=== PATIENT | female | born 1980 | race Caucasian/White ===

== ENCOUNTER → 2017-08-21 | Outpatient (CLI) | payer OTHER ==
[~2017-08-21] MED LIST: ASPI81TA28 PO; ATEN-173 PO; METH10TA4 PO; SULF1TAB92 PO; TACR1CAP7 PO
[2017-08-21 12:32] LABS: HEMATOCRIT 41.2 % (37-47); MEAN CELL VOLUME 89.6 fL (80-100); MEAN CORPUSCULAR HEMOGLOBIN 31.7 pg (25-34); MEAN CORPUSCULAR HGB CONC 35.4 g/dl (32-36); MEAN PLATELET VOLUME 11.5 fL (7.4-10.4); PLATELET COUNT 132 K/uL (130-400); WHITE BLOOD COUNT 6.29 K/uL (4.8-10.8)
[2017-08-21 17:00] LABS: ALKALINE PHOSPHATASE 61 U/L (45-117); ALT/SGPT 22 U/L (12-78); AST/SGOT 15 U/L (15-37); BLOOD UREA NITROGEN 13 mg/dl (7-18); BUN/CREATININE RATIO 9.3 (10-20); CALCIUM 9.2 mg/dl (8.5-10.1); CARBON DIOXIDE 24 mmol/L (21-32); CHLORIDE 107 mmol/L (98-107); GLUCOSE 84 mg/dl (70-99); SODIUM 138 mmol/L (136-145)
[2017-08-21 17:07] LABS: ALB/GLOB RATIO 1.1 (0.9-2); FERRITIN 47.6 ng/ml (8.0-388.0); TOTAL IRON BINDING CAPACITY 280 mcg/dl (250-450)
[2017-08-21 17:30] LABS: LYME DISEASE AB IGM NEG (NEG)
[2017-08-21 17:31] LABS: LYME DISEASE AB IGG NEG (NEG)
== END | disposition home or self-care (01) ==
LOC: C.LABBFT 11:01
PROVIDERS: ATTEND Physician Assistant Medical
DX: R53.83 Other fatigue (principal)

== ENCOUNTER 2017-09-27 00:21 | Emergency (ER) | payer OTHER ==
[~2017-09-27] VITALS: Ht 167.6 cm; Wt 66.9 kg
[2017-09-27 00:27] VITALS: TEMP 37; Ht 167.6 cm; Wt 66.9 kg
[2017-09-27] MEDS ORDERED: OPTIRAY 320 IV PRN (01:15)
[2017-09-27] MEDS ORDERED: LORAZEPAM 2 MG/ML 1 ML VIAL IV STA (01:21)
[2017-09-27 01:38] LABS: BUN/CREATININE RATIO 15.1 (10-20); CALCIUM 9.7 mg/dl (8.5-10.1); CREATININE 1.38 mg/dl (0.60-1.20); POTASSIUM 4.4 mmol/L (3.5-5.1)
[2017-09-27] MEDS ORDERED: ASPI325T45 PO (01:40)
[2017-09-27] MEDS ORDERED: TACR1CAP14 PO (01:42)
[2017-09-27] MEDS ORDERED: LEVO25TA5 PO (01:42)
[2017-09-27] MEDS ORDERED: ATEN50TA8 PO (01:46)
[2017-09-27] MEDS ORDERED: ACETAMINOPHEN 500 MG TAB PO STA (01:52)
[2017-09-27 02:57] LABS: BASO % 0.2 %; BASO ABS # 0.03 K/uL (0-0.2); COMPLETE YES; EOS % 3.9 %; HEMATOCRIT 42.6 % (37-47); IG% 0.4 %; LYMPH % 10.9 %; LYMPH ABS # 1.39 K/uL (1.2-3.4); MEAN CELL VOLUME 90.4 fL (80-100); MEAN CORPUSCULAR HEMOGLOBIN 32.5 pg (25-34); MEAN CORPUSCULAR HGB CONC 35.9 g/dl (32-36); MEAN PLATELET VOLUME 10.9 fL (7.4-10.4); MONO % 5.9 %; NEUT % 78.7 %; PLATELET COUNT 210 K/uL (130-400); RED BLOOD COUNT 4.71 M/uL (4.2-5.4)
[2017-09-27] MEDS ORDERED: TROLAMINE SALICYLATE 10% CRM 255 APPLN/85 GM TUBE EXT STA (03:24)
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
[2017-09-27 03:59] VITALS: BP 144/101; PULSE 75; O2SAT 96
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
== END 2017-09-27 03:58 | disposition home or self-care (01) ==
LOC: C.EDB 00:23
DX: S09.90XA Unspecified injury of head, initial encounter (principal); S19.9XXA Unspecified injury of neck, initial encounter; S59.901A Unspecified injury of right elbow, initial encounter; S90.512A Abrasion, left ankle, initial encounter; T76.11XA Adult physical abuse, suspected, initial encounter; R40.2412 Glasgow coma scale score 13-15, at arrival to emergency department; I12.9 Hypertensive chronic kidney disease with stage 1 through stage 4 chronic kidney disease, or unspecified chronic kidney disease; N18.9 Chronic kidney disease, unspecified; F17.200 Nicotine dependence, unspecified, uncomplicated; E04.1 Nontoxic single thyroid nodule; Z94.0 Kidney transplant status; Z79.82 Long term (current) use of aspirin

== ENCOUNTER → 2017-11-04 | Outpatient (CLI) | payer OTHER ==
[~2017-11-04] MED LIST changes: +ASPECOTC PO; -ASPI81TA28 PO; -ATEN-173 PO; +ATEN50TA8 PO; +LEVO25TA5 PO; -METH10TA4 PO; -SULF1TAB92 PO; +TACR1CAP3 PO; -TACR1CAP7 PO
== END | disposition home or self-care (01) ==
LOC: C.LABSPEC 17:25
PROVIDERS: ATTEND Physician Assistant
DX: N89.8 Other specified noninflammatory disorders of vagina (principal); R30.0 Dysuria

== ENCOUNTER → 2017-11-27 | Outpatient (CLI) | payer OTHER ==
[~2017-11-27] MED LIST changes: -ASPECOTC PO; +ASPI325T45 PO; +TACR1CAP14 PO; -TACR1CAP3 PO
== END | disposition home or self-care (01) ==
LOC: C.LABSPEC 17:34
PROVIDERS: ATTEND Physician Assistant
DX: N89.8 Other specified noninflammatory disorders of vagina (principal)

== ENCOUNTER → 2017-12-22 | Outpatient (CLI) | payer OTHER | END | disposition home or self-care (01) | LOC: C.LABSPEC 13:46 | PROVIDERS: ATTEND Physician Assistant | DX: N89.8 Other specified noninflammatory disorders of vagina (principal) ==

== ENCOUNTER 2022-04-06 19:45 | Inpatient (IN) ==
[2022-04-06] MEDS ORDERED: ACETAMINOPHEN 1000 MG/100 ML IV IV STA (20:55)
[2022-04-06] MEDS ORDERED: ONDANSETRON INJ 2 MG/ML 2 ML VIAL IV STA (20:55)
[2022-04-06] MEDS ORDERED: LORazepam 2 MG/1 ML VIAL IV STA (20:55)
[2022-04-06] MEDS ORDERED: SODIUM CHLORIDE 0.9% 500 ML IV SCH (21:00)
--- NOTE | 2022-04-06 21:00 | Emergency Department Note ---
Impression & Plan SOB (shortness of breath), Rigors, Immunocompromised, Acute hyponatremia, Hypomagnesemia ED Provider Note NAME: JONAS YOUNG AGE: 41 SEX: F : 1980 ARRIVES VIA: Walk-In INFORMANT: [Patient] ED PROVIDER(S): [Pranav Gupta MD] CHIEF COMPLAINT: Shortness of breath, chills HISTORY OF PRESENT ILLNESS: The patient is a 41-year-old female with a history of renal transplant. She presents with complaints of 2 hours of shortness of breath, dizziness, feeling faint, body weakness and shaking. She feels cold. This came on all of a sudden. She had no vomiting, no diarrhea, no urinary complaints. No cough, sore throat or stuffy nose. The patient does feel somewhat anxious. She felt fine earlier in the day. Of note, the patient was recently treated for bronchitis. She was on steroids and seemed to improve. REVIEW OF SYSTEMS: See HPI for pertinent positives and negatives. A total of ten systems were reviewed and were otherwise negative. PMHx/PSHx: See Below SOCIAL HISTORY: See Below. PHYSICAL EXAM: GENERAL: Patient is in no acute distress. Shivering. HEENT: No acute trauma, normocephalic atraumatic, mucous membranes moist, no nasal congestion, no scleral icterus. NECK: No stridor, no adenopathy, no meningismus, trachea is midline. LUNGS: Clear to auscultation bilaterally, no wheeze, no rhonchi, breath sounds equal. HEART: Without murmurs gallops or rubs, regular rate and rhythm. ABDOMEN: Soft, nontender, bowel sounds positive, no peritonitis. EXTREMITIES: No cyanosis or edema, full range of motion of all the joints wit hout pain or difficulty, no signs for acute trauma. NEUROLOGIC: Oriented x 3, no acute motor or sensory deficits, no focal weakness. SKIN: No rash, no jaundice, no diaphoresis. DIFFERENTIAL DIAGNOSIS: Sepsis, UTI, COVID-19, influenza, pneumonia, metabolic abnormality, electrolyte abnormalities, cardiac sources, cellulitis, bacteremia, intracerebral event, toxicologic etiology, neurologic event, anxiety, as well as other pathologies. EMERGENCY DEPARTMENT COURSE/PROCEDURES: ECG: Indication was weakness and shortness of breath. The ECG shows a normal sinus rhythm with a rate of 85. There is a potential old inferior infarct. There is no ST elevation, no PVCs. QTC is 480. Continuous Cardiac Monitoring: An order was placed for continuous cardiac monitoring. The monitor shows a rate of 87 with normal sinus rhythm. Critical Care Note: I have personally spent 49 minutes of critical care time in the direct management of this patient. This includes bedside care, interpretation of diagnostic studies, and testing, discussion with consultants, patient, and family members, and other required patient management activities. This 49 minutes is in excess of all separately billable procedures. MEDICAL DECISION MAKING: There is no leukocytosis or concerning anemia. There is a normal platelet count. Sodium was low at 128, potassium is low at 3.1. There was an anion gap of 17. Creatinine was elevated at 1.84--the creatinine elevation is baseline for the patient. Her magnesium was low at 2.9. Lactic acid level was slightly elevated, possibly consistent with infection or dehydration. No worrisome liver enzyme elevation. The patient was in a euthyroid state. testing was negative. Urinalysis did not show infection. COVID, influenza and RSV test were negative. Chest film was clear, no pneumonia. On exam, the patient was initially hypertensive, anxious and appeared to be having rigors. The patient was aggressively managed. She was immunocompromised with a history of renal transplant. The patient received IV saline, 1 L. She was given IV Zofran, IV magnesium, IV Ativan, IV Tylenol. She received IV cefepime and IV Zyvox. The patient does appear improved. She does seem more comfortable. She is in need of a hospital stay for further work-up and IV antibiotics. She requires electrolyte replacement. I spoke with the patient and case management director. The on-call hospitalist was consulted. Past Med/Surg History Medical History AVF (arteriovenous fistula) (~11/2004) Ligated 04/14 Concussion alcohol syndrome FHx unknown. Adopted. Possible alcohol syndrome Hypothyroidism Surgical History H/O inguinal hernia repair History of kidney transplant History of tonsillectomy and adenoidectomy Family History Other Adopted Family history unknown Social History Smoking Status: Current every day smoker Second Hand Exposure: No; Hx Alcohol Use: No Hx Substance Use: No Preferred Language: Frisian marital status: Single current occupational status: employed current occupation: [employer] Feels Safe at Home: Yes Allergies Allergies Allergy/AdvReac Type Severity Reaction Status Date / Time tramadol Allergy Intermediate ITCHING Verified 04/06/22 21:17 Home Meds Home Medications Medication Instructions Recorded Confirmed atenolol 50 mg tablet 50 mg PO BID 09/10/18 04/06/22 sulfamethoxazole 400 1 tab PO 3XWK 09/10/18 04/06/22 mg-trimethoprim 80 mg tablet albuterol sulfate 90 mcg/actuation 1 inh INHALATION DAILY 04/06/22 04/06/22 aerosol inhaler Previous Rx's Medication Instructions Recorded triamcinolone acetonide 0.025 % 1 applic TOPICAL BID PRN #80 g 12/11/20 topical cream escitalopram oxalate 10 mg tablet 10 mg PO DAILY #30 tab 03/04/22 tacrolimus 1 mg capsule, See Rx Instructions PO .COMPLEX #1 03/04/22 immediate-release cap hydrochlorothiazide 12.5 mg tablet 12.5 mg PO BID #60 tab 04/02/22 Results & Data (ED) Vital Signs Vital Signs - 24 hr 04/06/22 19:49 04/06/22 20:14 04/06/22 20:15 Temperature 36.7 C Temperature Source Temporal Artery Scan Pulse Rate 95 H Pulse Rate [Finger] 87 Pulse Rate from SpO2 Sensor Respiratory Rate 18 20 Respiratory Effort / Characteristics Non-Labored Spontaneous Non-Labored Spontaneous Respiratory Depth Normal Normal Respiratory Pattern Regular Blood Pressure 167/123 H Blood Pressure [Right Arm] 175/129 H Blood Pressure Mean 137 Blood Pressure Mean [Right Arm] 144 Blood Pressure Position [Right Arm] Semi-fowlers Pulse Oximetry 100 100 100 Oxygen Delivery Method Room Air Room Air Room Air Sepsis Recent Fever Within 48 Hours No Sepsis New/Unexplained Change in Mental Status No Sepsis Action Taken by Nursing No Action Required 04/06/22 20:55 04/06/22 21:00 04/06/22 21:30 Temperature Temperature Source Pulse Rate 84 93 H Pulse Rate [Finger] Pulse Rate from SpO2 Sensor 85 86 Respiratory Rate 16 20 Respiratory Effort / Characteristics Respiratory Depth Respiratory Pattern Blood Pressure Blood Pressure [Right Arm] Blood Pressure Mean Blood Pressure Mean [Right Arm] Blood Pressure Position [Right Arm] Pulse Oximetry 100 100 99 Oxygen Delivery Method Room Air Sepsis Recent Fever Within 48 Hours Sepsis New/Unexplained Change in Mental Status Sepsis Action Taken by Nursing 04/06/22 21:49 04/06/22 22:00 Temperature Temperature Source Pulse Rate 84 86 Pulse Rate [Finger] Pulse Rate from SpO2 Sensor 84 87 Respiratory Rate 13 16 Respiratory Effort / Characteristics Respiratory Depth Respiratory Pattern Blood Pressure 161/110 H 146/99 H Blood Pressure [Right Arm] Blood Pressure Mean 127 114 Blood Pressure Mean [Right Arm] Blood Pressure Position [Right Arm] Pulse Oximetry 98 95 Oxygen Delivery Method Sepsis Recent Fever Within 48 Hours Sepsis New/Unexplained Change in Mental Status Sepsis Action Taken by Correction Medications Current Medication List: was personally reviewed by me Laboratory Data Attestation: I reviewed the patient's lab results. Result diagrams: 04/06/22 20:28 04/06/22 20:28 Lab Results 04/06/22 04/06/22 04/06/22 Range/Units 20:28 20:28 20:28 WBC 8.87 (4.8-10.8) K/uL RBC 4.78 (4.2-5.4) M/uL Hgb 12.0 (12.0-16.0) g/dL Hct 35.8 L (37-47) % MCV 74.9 L (80-100) fL MCH 25.1 (25-34) pg MCHC 33.5 (32-36) g/dL RDW Std Deviation 41.5 (36.4-46.3) fL RDW Coeff of Shukri 15.2 H (11.5-14.5) % Plt Count 287 (130-400) K/uL MPV 10.5 H (7.4-10.4) fL Immature Gran % (Auto) 0.7 % Neut % (Auto) 66.3 % Lymph % (Auto) 24.1 % [place] % (Auto) 7.4 % Eos % (Auto) 1.5 % Baso % (Auto) 0.0 % Neut # (Auto) 5.88 (1.4-6.5) K/uL Lymph # (Auto) 2.14 (1.2-3.4) K/uL [place] # (Auto) 0.66 H (0.11-0.59) K/uL Eos # (Auto) 0.13 (0-0.5) K/uL Baso # (Auto) 0.00 (0-0.2) K/uL Immature Gran # (Auto) 0.06 H (0.00-0.02) K/uL Sodium 128 L (136-145) mmol/L Potassium 3.1 L (3.5-5.1) mmol/L Chloride 91 L (98-107) mmol/L Carbon Dioxide 20 L (21-32) mmol/L Anion Gap 17 H (3-11) BUN 31 H (6-23) mg/dl Creatinine 1.84 H (0.6-1.2) mg/dl Est Cr Clr Drug Dosing 37.7 ml/min Est GFR ( Amer) 38.8 ml/min Est GFR (Non-Af Amer) 33.5 ml/min BUN/Creatinine Ratio 16.8 (10-20) Glucose 102 H (70-99(Fasting)) mg/dl Lactate (0.4-2.0) mmol/L Calcium 11.0 H (8.5-10.1) mg/dl Magnesium 0.9 L* (1.7-2.4) mg/dl Total Bilirubin 1.3 H (0.2-1.0) mg/dl AST 14 (13-39) U/L ALT 14 (7-52) U/L Alkaline Phosphatase 50 (34-104) U/L Total Protein 7.7 (6.0-8.3) gm/dl Albumin 4.6 (3.4-5.0) gm/dl Globulin 3.1 (2.5-4.0) gm/dl Albumin/Globulin Ratio 1.5 (0.9-2) TSH 4.274 (0.300-4.500) uIu/ml HCG, Qual (Negative) Urine Color Urine Appearance (Clear) Urine pH (4.5-7.5) Ur Specific [place] (1.000-1.030) Urine Protein (Negative) Urine Glucose (UA) (Negative) Urine Ketones (Negative) Urine Blood (Negative) Urine Nitrite (Negative) Urine Bilirubin (Negative) Urine Urobilinogen (Negative) Ur Leukocyte Esterase (Negative) Urine WBC (Auto) (0-5) /hpf Urine RBC (Auto) (0-4) /hpf U Hyaline Cast (Auto) (0-5) /lpf U Epithel Cells (Auto) (0-5) /lpf Urine Bacteria (Auto) (Negative) SARS-CoV-2 (PCR) (Negative) Influenza Type A (PCR) (Neg) Influenza Type B (PCR) (Neg) RSV (RT-PCR) (Neg) 04/06/22 04/06/22 04/06/22 Range/Units 20:28 21:15 21:25 WBC (4.8-10.8) K/uL RBC (4.2-5.4) M/uL Hgb (12.0-16.0) g/dL Hct (37-47) % MCV (80-100) fL MCH (25-34) pg MCHC (32-36) g/dL RDW Std Deviation (36.4-46.3) fL RDW Coeff of Shukri (11.5-14.5) % Plt Count (130-400) K/uL MPV (7.4-10.4) fL Immature Gran % (Auto) % Neut % (Auto) % Lymph % (Auto) % [place] % (Auto) % Eos % (Auto) % Baso % (Auto) % Neut # (Auto) (1.4-6.5) K/uL Lymph # (Auto) (1.2-3.4) K/uL [place] # (Auto) (0.11-0.59) K/uL Eos # (Auto) (0-0.5) K/uL Baso # (Auto) (0-0.2) K/uL Immature Gran # (Auto) (0.00-0.02) K/uL Sodium (136-145) mmol/L Potassium (3.5-5.1) mmol/L Chloride (98-107) mmol/L Carbon Dioxide (21-32) mmol/L Anion Gap (3-11) BUN (6-23) mg/dl Creatinine (0.6-1.2) mg/dl Est Cr Clr Drug Dosing ml/min Est GFR ( Amer) ml/min Est GFR (Non-Af Amer) ml/min BUN/Creatinine Ratio (10-20) Glucose (70-99(Fasting)) mg/dl Lactate 2.1 H* (0.4-2.0) mmol/L Calcium (8.5-10.1) mg/dl Magnesium (1.7-2.4) mg/dl Total Bilirubin (0.2-1.0) mg/dl AST (13-39) U/L ALT (7-52) U/L Alkaline Phosphatase (34-104) U/L Total Protein (6.0-8.3) gm/dl Albumin (3.4-5.0) gm/dl Globulin (2.5-4.0) gm/dl Albumin/Globulin Ratio (0.9-2) TSH (0.300-4.500) uIu/ml HCG, Qual Negative (Negative) Urine Color Urine Appearance (Clear) Urine pH (4.5-7.5) Ur Specific [place] (1.000-1.030) Urine Protein (Negative) Urine Glucose (UA) (Negative) Urine Ketones (Negative) Urine Blood (Negative) Urine Nitrite (Negative) Urine Bilirubin (Negative) Urine Urobilinogen (Negative) Ur Leukocyte Esterase (Negative) Urine WBC (Auto) (0-5) /hpf Urine RBC (Auto) (0-4) /hpf U Hyaline Cast (Auto) (0-5) /lpf U Epithel Cells (Auto) (0-5) /lpf Urine Bacteria (Auto) (Negative) SARS-CoV-2 (PCR) NEGATIVE (Negative) Influenza Type A (PCR) Negative (Neg) Influenza Type B (PCR) Negative (Neg) RSV (RT-PCR) Negative (Neg) 04/06/22 04/06/22 Range/Units 22:48 23:13 WBC (4.8-10.8) K/uL RBC (4.2-5.4) M/uL Hgb (12.0-16.0) g/dL Hct (37-47) % MCV (80-100) fL MCH (25-34) pg MCHC (32-36) g/dL RDW Std Deviation (36.4-46.3) fL RDW Coeff of Shukri (11.5-14.5) % Plt Count (130-400) K/uL MPV (7.4-10.4) fL Immature Gran % (Auto) % Neut % (Auto) % Lymph % (Auto) % [place] % (Auto) % Eos % (Auto) % Baso % (Auto) % Neut # (Auto) (1.4-6.5) K/uL Lymph # (Auto) (1.2-3.4) K/uL [place] # (Auto) (0.11-0.59) K/uL Eos # (Auto) (0-0.5) K/uL Baso # (Auto) (0-0.2) K/uL Immature Gran # (Auto) (0.00-0.02) K/uL Sodium (136-145) mmol/L Potassium (3.5-5.1) mmol/L Chloride (98-107) mmol/L Carbon Dioxide (21-32) mmol/L Anion Gap (3-11) BUN (6-23) mg/dl Creatinine (0.6-1.2) mg/dl Est Cr Clr Drug Dosing ml/min Est GFR ( Amer) ml/min Est GFR (Non-Af Amer) ml/min BUN/Creatinine Ratio (10-20) Glucose (70-99(Fasting)) mg/dl Lactate 1.3 (0.4-2.0) mmol/L Calcium (8.5-10.1) mg/dl Magnesium (1.7-2.4) mg/dl Total Bilirubin (0.2-1.0) mg/dl AST (13-39) U/L ALT (7-52) U/L Alkaline Phosphatase (34-104) U/L Total Protein (6.0-8.3) gm/dl Albumin (3.4-5.0) gm/dl Globulin (2.5-4.0) gm/dl Albumin/Globulin Ratio (0.9-2) TSH (0.300-4.500) uIu/ml HCG, Qual (Negative) Urine Color Yellow Urine Appearance Clear (Clear) Urine pH 7.0 (4.5-7.5) Ur Specific [place] 1.005 (1.000-1.030) Urine Protein 1+ H (Negative) Urine Glucose (UA) Negative (Negative) Urine Ketones Negative (Negative) Urine Blood Negative (Negative) Urine Nitrite Negative (Negative) Urine Bilirubin Negative (Negative) Urine Urobilinogen Negative (Negative) Ur Leukocyte Esterase Negative (Negative) Urine WBC (Auto) 1-5 (0-5) /hpf Urine RBC (Auto) 0-4 (0-4) /hpf U Hyaline Cast (Auto) 1-5 (0-5) /lpf U Epithel Cells (Auto) 20-30 H (0-5) /lpf Urine Bacteria (Auto) Negative (Negative) SARS-CoV-2 (PCR) (Negative) Influenza Type A (PCR) (Neg) Influenza Type B (PCR) (Neg) RSV (RT-PCR) (Neg) Administered Medications Discontinued Medications Acetaminophen (Acetaminophen 1000 Mg/100 Ml Iv) 1,000 mg IV NOW STA Stop: 04/06/22 20:56 Last Admin: 04/06/22 21:12 Dose: 1,000 mg Documented by: [id number] Sodium Chloride (Nss) 500 mls @ 999 mls/hr IV .Q31M FLOR Stop: 04/06/22 21:30 Last Infusion: 04/06/22 22:02 Dose: 0 mls/hr Documented by: [id number] Admin: 04/06/22 21:23 Dose: 999 mls/hr Documented by: [id number] Magnesium Sulfate/Dextrose (Magnesium Sulfate / D5w) 1 gm in 100 mls @ 100 mls/hr IV Q1H FLOR Stop: 04/06/22 23:27 Last Admin: 04/06/22 23:03 Dose: 100 mls/hr Documented by: [id number] Infusion: 04/06/22 23:03 Dose: 0 mls/hr Documented by: [id number] Admin: 04/06/22 21:49 Dose: 100 mls/hr Documented by: [id number] Sodium Chloride (Nss 1000ml) 500 mls @ 999 mls/hr IV .Q31M ONE Stop: 04/06/22 22:30 Last Infusion: 04/06/22 22:37 Dose: 0 mls/hr Documented by: [id number] Admin: 04/06/22 22:03 Dose: 999 mls/hr Documented by: [id number] Cefepime HCl (Maxipime) 2,000 mg in 20 mls @ 5 mls/min IV NOW STA; Protocol Stop: 04/06/22 22:24 Last Admin: 04/06/22 22:40 Dose: 5 mls/min Documented by: [id number] Lorazepam (Lorazepam 2 Mg/1 Ml Vial) 1 mg IV NOW STA; Protocol Stop: 04/06/22 20:56 Last Admin: 04/06/22 21:12 Dose: 1 mg Documented by: [id number] Ondansetron HCl (Ondansetron Inj 2 Mg/Ml 2 Ml Vial) 4 mg IV NOW STA Stop: 04/06/22 20:56 Last Admin: 04/06/22 21:12 Dose: 4 mg Documented by: [id number] Imaging Data Radiologist's Impression: Chest X-Ray 04/06/22 20:55 SINGLE VIEW CHEST CLINICAL HISTORY: Generalized weakness. FINDINGS: An AP, portable, upright chest radiograph is compared to study dated 03/31/2022 and correlated with chest CT dated 07/20/2019. The cardiomediastinal silhouette is unremarkable. The lungs and pleural spaces are clear. No pneumothorax is seen. The bony thorax is grossly intact. IMPRESSION: No active disease in the chest. ACT 112: Negative or not required by law. Electronically signed by: Pranav Bey M.D. 04/06/2022 9:50 PM Discharge Plan Visit Data Chief Complaint: Shortness of Breath/Dyspnea Stated Complaint: SHORTNESS OF BREATH, CONFUSED, SHAKEY ED Provider: Pranav Gupta Discharge Problem: SOB (shortness of breath), Rigors, Immunocompromised, Acute hyponatremia, Hypomagnesemia Patient Disposition: Admitted As Inpatient Condition: Fair Forms Stand Alone Forms: [facility] Prescriptions Prescriptions: No Action triamcinolone acetonide 0.025 % cream 1 applic topical BID PRN (Reason: itching) Qty: 80 RF: 3 hydrochlorothiazide 12.5 mg tablet 12.5 mg PO BID Qty: 60 RF: 0 tacrolimus 1 mg capsule See Rx Instructions PO .COMPLEX Qty: 1 RF: 0 escitalopram oxalate 10 mg tablet 10 mg PO DAILY Qty: 30 RF: 5 atenolol 50 mg Tablet 50 mg PO BID RF: 0 sulfamethoxazole-trimethoprim 400-80 mg tablet 1 tab PO 3XWK RF: 0 albuterol sulfate 90 mcg/actuation HFA aerosol inhaler 1 inh INHALATION DAILY RF: 0 Referrals Referrals: Stefany Azevedo PA-C [Primary Care Provider] -
[2022-04-06 21:10] LABS: Eosinophils # (auto) 0.13 K/uL (0-0.5); Eosinophils % (auto) 1.5 %; Hematocrit (blood only) 35.8 % (37-47); Immature Granulocytes # (auto) 0.06 K/uL (0.00-0.02); Immature Granulocytes % (auto) 0.7 %; Lymphocytes # (auto) 2.14 K/uL (1.2-3.4); Lymphocytes % (auto) 24.1 %; Mean Corpuscular Hemoglobin 25.1 pg (25-34); Mean Corpuscular Hgb Conc 33.5 g/dL (32-36); Mean Corpuscular Volume 74.9 fL (80-100); Mean Platelet Volume 10.5 fL (7.4-10.4); Monocytes # (auto) 0.66 K/uL (0.11-0.59); Monocytes % (auto) 7.4 %; Neutrophils # (auto) 5.88 K/uL (1.4-6.5); Neutrophils % (auto) 66.3 %; Platelet Count 287 K/uL (130-400); RDW Coefficient of Variation 15.2 % (11.5-14.5); RDW Standard Deviation 41.5 fL (36.4-46.3); Red Blood Count 4.78 M/uL (4.2-5.4); White Blood Count 8.87 K/uL (4.8-10.8)
[2022-04-06 21:25] LABS: BUN Creatinine Ratio 16.8 (10-20); Creatinine Clr Calc Pharmacy 37.7 ml/min; Est GFR (African American) 38.8 ml/min; Est GFR (Non-African American) 33.5 ml/min; Potassium 3.1 mmol/L (3.5-5.1)
[2022-04-06 21:26] LABS: Pregnancy Test, Serum Negative (Negative)
[2022-04-06 21:27] LABS: Albumin Globulin Ratio 1.5 (0.9-2); Albumin Level 4.6 gm/dl (3.4-5.0); Bilirubin,Total 1.3 mg/dl (0.2-1.0); Globulin 3.1 gm/dl (2.5-4.0); Magnesium 0.9 mg/dl (1.7-2.4); Total Protein 7.7 gm/dl (6.0-8.3)
[2022-04-06] MEDS: MAGNESIUM SULFATE / D5W 1 GM/100 ML BAG IV SCH ×2 (21:49→23:03)
--- NOTE | 2022-04-06 21:52 | XRay Report ---
SINGLE VIEW CHEST CLINICAL HISTORY: Generalized weakness. FINDINGS: An AP, portable, upright chest radiograph is compared to study dated 03/31/2022 and correlat ed with chest CT dated 07/20/2019. The cardiomediastinal silhouette is unremarkable. The lungs and ple ural spaces are clear. No pneumothorax is seen. The bony thorax is grossly intact. IMPRESSION: No active disease in the chest. ACT 112: Negative or not required by law. Electronically signed by: Pranav Bey M.D. 04/06/2022 9:50 PM
[2022-04-06] MEDS ORDERED: SODIUM CHLORIDE 0.9% 1000ML 500 ML IV ONE (22:00)
[2022-04-06] MEDS ORDERED: CEFEPIME 2,000 MG/20 ML VIAL IV STA (22:21)
[2022-04-06 22:24] LABS: Influenza A virus by PCR Negative (Neg); Influenza B virus by PCR Negative (Neg); RSV by PCR Negative (Neg); SARS CoV2 RNA(COVID-19) InHosp NEGATIVE (Negative)
[2022-04-06 23:11] LABS: Appearance Urine Clear (Clear); Bacteria Urine Automated Negative (Negative); Bilirubin Urine Negative (Negative); Blood Urine Negative (Negative); Color Urine Yellow; Epithelial Cell Urine Auto 20-30 /lpf (0-5); Glucose Urine UA Negative (Negative); Ketones Urine Negative (Negative); Leukocyte Esterase Urine Negative (Negative); Nitrite Urine Negative (Negative); Protein Urine 1+ (Negative); RBC Urine Automated 0-4 /hpf (0-4); Specific Gravity Urine 1.005 (1.000-1.030); Urobilinogen Urine Negative (Negative)
--- NOTE | 2022-04-06 23:57 | History & Physical Report ---
Date of Service April 06, 2022 Assessment & Plan (1) Sepsis: Plan: Sepsis/immunocompromised on tacrolimus/bronchitis- Symptoms of shortness of breath and rigors, plus above Empiric coverage with linezolid 600 mg IV every 12 hours and cefepime 2 g IV every 12 hours No vancomycin due to kidney transplant/CKD status Follow all cultures: Blood, urine (2) Immunocompromised: Plan: Continue tacrolimus Antibiotic coverage as noted above (3) Bronchitis: Plan: Patient was placed on steroids 1 week ago for bronchitis Chest x-ray looks normal at this point, however she continues have main complaint of being short of breath Ordered lower extremity venous Dopplers Unable to order CT angiography due to renal transplant status and CKD Will do VQ scan in a.m. (4) Hypomagnesemia: Plan: Magnesium 0.9 upon admission Ordered 2 g magnesium sulfate IV by the ED Will give another 2g IV, for total of 4, recheck laboratories in a.m. (5) Acute hyponatremia: Plan: NSS at 100 mils per hour Repeat laboratories in a.m. (6) Hypertension: Plan: Continue atenolol 50 mg p.o. twice daily with hold parameters Hold HCTZ due to electrolyte disturbances (7) History of kidney transplant: Plan: Continue tacrolimus and Bactrim Consult her monitor technician Dr. Espino (8) Hypokalemia: Plan: Give Klor-Con 20 mEq p.o. x1, with history of renal transplant and CKD Recheck laboratories in a.m. (9) Hypercalcemia: Plan: Calcium 11.0 upon admission In part likely due to hemoconcentration Repeat laboratories in a.m. Check 25-hydroxy vitamin D and PTH levels (10) Rigors: Plan: Noted as a symptoms of sepsis (11) Nicotine dependence: Plan: NicoDerm patch (12) Depression with anxiety: Plan: Holding escitalopram now due to interaction with linezolid History of Present Illness Chief Complaint: The patient presents to the emergency department with complaint of shortness of breath, dizziness, feeling faint, generalized malaise, fatigue, generalized weakness and shaking that began a few hours prior to arrival Primary Care Provider: Stefany Azevedo PA-C The patient is a 41-year-old female with a past medical history including renal transplant chronically immunocompromised, nicotine dependence, CKD, depression with anxiety, hypothyroidism, vitamin D deficiency, hypertension, iron deficiency anemia, ADHD, cephalic vein thrombosis and migraine. She presents to the emergency department with a few hours of generalized weakness, fatigue, shaking, shortness of breath, lightheadedness and dizziness. She denies any recent travel or sick exposures. She reports having been started on prednisone about 1 week ago for bronchitis, but feels that her symptoms have progressed since that time. She denies any change in urine function or bowel function. Allergies Allergy/AdvReac Type Severity Reaction Status Date / Time tramadol Allergy Intermediate ITCHING Verified 04/06/22 21:17 Home Medications Medication Instructions Recorded Confirmed Type atenolol 50 mg tablet 50 mg PO BID 09/10/18 04/06/22 History sulfamethoxazole 400 1 tab PO 3XWK 09/10/18 04/06/22 History mg-trimethoprim 80 mg tablet triamcinolone acetonide 0.025 % 1 applic TOPICAL BID PRN #80 g 12/11/20 04/06/22 Rx topical cream escitalopram oxalate 10 mg tablet 10 mg PO DAILY #30 tab 03/04/22 04/06/22 Rx tacrolimus 1 mg capsule, See Rx Instructions PO .COMPLEX #1 03/04/22 04/06/22 Rx immediate-release cap hydrochlorothiazide 12.5 mg tablet 12.5 mg PO BID #60 tab 04/02/22 04/06/22 Rx albuterol sulfate 90 mcg/actuation 1 inh INHALATION DAILY 04/06/22 04/06/22 History aerosol inhaler Past Med/Surg History Medical History AVF (arteriovenous fistula) (~11/2004) Ligated 04/14 Concussion alcohol syndrome FHx unknown. Adopted. Possible alcohol syndrome Hypothyroidism Surgical History H/O inguinal hernia repair History of kidney transplant History of tonsillectomy and adenoidectomy Family History Other Adopted Family history unknown Social History Smoking Status: Current every day smoker Second Hand Exposure: No; Hx Alcohol Use: No Hx Substance Use: No Preferred Language: Singaporean marital status: Single current occupational status: employed current occupation: [employer] Feels Safe at Home: Yes Review of Systems Review of Systems: The patient denies chest pain, palpitations, cough, lower extremity swelling, sore throat, fevers, chills, sweats, nausea, vomiting, diarrhea , constipation, abdominal pain, pelvic pain, blood in urine or stool, dysuria, urinary frequency or urgency, memory loss, loss of consciousness, rash, abnormal bruising or bleeding, imbalance, focal weakness, numbness or tingling in arms or legs, back or neck pain, or night sweats. The review of systems is otherwise negative other than for that already noted above, and at least 10 systems have been reviewed. Physical Exam Physical Exam: The patient is awake, alert and oriented 3, well developed and well nourished, normocephalic and atraumatic, lying in bed and in no acute distress. HEENT--PERRL, EOMI, mucous membranes and oropharynx dry. Neck--supple. No JVD. No bruits. Thyroid normal, trachea midline, no adenopathy. Heart--normal S1 and S2. No murmurs, rubs or gallops. Lungs--clear bilaterally, no respiratory distress, no accessory muscle use. Abdomen--normal bowel sounds and soft. Nontender. Nondistended, no hernias or m asses, no organomegaly. Extremities--no cyanosis or clubbing. No edema. Dermatologic--normal skin turgor, normal color, no abnormal lymph nodes, no rash. Neurologic--cranial nerves II through XII grossly intact. Rheumatologic--normal range of motion. Psychiatric--normal affect. Results & Data Results & Data ([facility]) Vital Signs (Past 12 Hours) Vital Signs Temp Pulse Pulse Resp BP BP Pulse Ox 04/06/22 22:00 86 16 146/99 H 95 04/06/22 21:49 84 13 161/110 H 98 04/06/22 21:30 93 H 20 99 04/06/22 21:00 84 16 100 04/06/22 20:55 100 04/06/22 20:15 100 04/06/22 20:14 87 20 175/129 H 100 04/06/22 19:49 36.7 C 95 H 18 167/123 H 100 Laboratory Results Laboratory Results WBC 8.87 K/uL (4.8-10.8) 04/06/22 20: RBC 4.78 M/uL (4.2-5.4) 04/06/22 20: Hgb 12.0 g/dL (12.0-16.0) 04/06/22 20: Hct 35.8 % (37-47) L 04/06/22 20: MCV 74.9 fL (80-100) L 04/06/22: MCH 25.1 pg (25-34) 04/06/22 20: MCHC 33.5 g/dL (32-36) 04/06/22: RDW Std Deviation 41.5 fL (36.4-46.3) 04/06/22 RDW Coeff of Shukri 15.2 % (11.5-14.5) H 04/06/22: Plt Count 287 K/uL (130-400) 04/06/22: MPV 10.5 fL (7.4-10.4) H 04/06/22: Immature Gran % (Auto) 0.7 % 04/06/22: Neut % (Auto) 66.3 % 04/06/22: Lymph % (Auto) 24.1 % 04/06/22: Reynolds % (Auto) 7.4 % 04/06/22 20: Eos % (Auto) 1.5 % 04/06/22: Baso % (Auto) 0.0 % 04/06/22: Neut # (Auto) 5.88 K/uL (1.4-6.5) 04/06/22 20: Lymph # (Auto) 2.14 K/uL (1.2-3.4) 04/06/22: Reynolds # (Auto) 0.66 K/uL (0.11-0.59) H 04/06/22: Eos # (Auto) 0.13 K/uL (0-0.5) 04/06/22 20: Baso # (Auto) 0.00 K/uL (0-0.2) 04/06/22 20: Immature Gran # (Auto) 0.06 K/uL (0.00-0.02) H 04/06/22 20:28 Sodium 128 mmol/L (136-145) L 04/06/22 20: Potassium 3.1 mmol/L (3.5-5.1) L 04/06/22 20: Chloride 91 mmol/L (98-107) L 04/06/22 20: Carbon Dioxide 20 mmol/L (21-32) L 04/06/22 20: Anion Gap 17 (3-11) H 04/06/22 20:28 BUN 31 mg/dl (6-23) H 04/06/22 20: Creatinine 1.84 mg/dl (0.6-1.2) H 04/06/22 20:28 Est Cr Clr Drug Dosing 37.7 ml/min 04/06/22 20: Est GFR ( Amer) 38.8 ml/min 04/06/22 20: Est GFR (Non-Af Amer) 33.5 ml/min 04/06/22 20: BUN/Creatinine Ratio 16.8 (10-20) 04/06/22 20: Glucose 102 mg/dl (70-99(Fasting)) H 04/06/22 20: Lactate 1.3 mmol/L (0.4-2.0) 04/06/22 23:13 Calcium 11.0 mg/dl (8.5-10.1) H 04/06/22 20: Magnesium 0.9 mg/dl (1.7-2.4) L* 04/06/22 20: Total Bilirubin 1.3 mg/dl (0.2-1.0) H 04/06/22 20:28 AST 14 U/L (13-39) 04/06/22 20:28 ALT 14 U/L (7-52) 04/06/22 20:28 Alkaline Phosphatase 50 U/L (34-104) 04/06/22 20:28 Total Creatine Kinase 36 U/L (26-192) 04/06/22 20:28 Total Protein 7.7 gm/dl (6.0-8.3) 04/06/22 20:28 Albumin 4.6 gm/dl (3.4-5.0) 04/06/22 20:28 Globulin 3.1 gm/dl (2.5-4.0) 04/06/22 20:28 Albumin/Globulin Ratio 1.5 (0.9-2) 04/06/22 20:28 TSH 4.274 uIu/ml (0.300-4.500) 04/06/22 20:28 HCG, Qual Negative (Negative) 04/06/22 20:28 Urine Color Yellow 04/06/22 22:48 Urine Appearance Clear (Clear) 04/06/22 22:48 Urine pH 7.0 (4.5-7.5) 04/06/22 22:48 Ur Specific [place] 1.005 (1.000-1.030) 04/06/22 22:48 Urine Protein 1+ (Negative) H 04/06/22 22:48 Urine Glucose (UA) Negative (Negative) 04/06/22 22:48 Urine Ketones Negative (Negative) 04/06/22 22:48 Urine Blood Negative (Negative) 04/06/22 22:48 Urine Nitrite Negative (Negative) 04/06/22 22:48 Urine Bilirubin Negative (Negative) 04/06/22 22:48 Urine Urobilinogen Negative (Negative) 04/06/22 22:48 Ur Leukocyte Esterase Negative (Negative) 04/06/22 22:48 Urine WBC (Auto) 1-5 /hpf (0-5) 04/06/22 22:48 Urine RBC (Auto) 0-4 /hpf (0-4) 04/06/22 22:48 U Hyaline Cast (Auto) 1-5 /lpf (0-5) 04/06/22 22:48 U Epithel Cells (Auto) 20-30 /lpf (0-5) H 04/06/22 22:48 Urine Bacteria (Auto) Negative (Negative) 04/06/22 22:48 SARS-CoV-2 (PCR) NEGATIVE (Negative) 04/06/22 21:15 Influenza Type A (PCR) Negative (Neg) 04/06/22 21:15 Influenza Type B (PCR) Negative (Neg) 04/06/22 21:15 RSV (RT-PCR) Negative (Neg) 04/06/22 21:15 Impressions Chest X-Ray 04/06/22 20:55 SINGLE VIEW CHEST CLINICAL HISTORY: Generalized weakness. FINDINGS: An AP, portable, upright chest radiograph is compared to study dated 03/31/2022 and correlated with chest CT dated 07/20/2019. The cardiomediastinal silhouette is unremarkable. The lungs and pleural spaces are clear. No pneumothorax is seen. The bony thorax is grossly intact. IMPRESSION: No active disease in the chest. ACT 112: Negative or not required by law. Electronically signed by: Pranav Bey M.D. 04/06/2022 9:50 PM Code Status & VTE Plan Code Status Full code VTE Prophylaxis Plan VTE Prophylaxis will be ordered: Yes PG Care Time/CCT Total # of Minutes Spent Total Time Spent with Patient: Total time spent is greater than 50% in coordination of care (as documented) at patient's floor/unit and/or counseling patient: Coding Level of Care Code 27340 Initial Inpt Care Lvl 3 Diagnoses Hypomagnesemia E83.42 Acute hyponatremia E87.1 Immunocompromised D84.9 Hypertension I10 History of kidney transplant Z94.0 Hypokalemia E87.6 Hypercalcemia E83.52 Bronchitis J40 Rigors R68.89 Nicotine dependence F17.200 Depression with anxiety F41.8 Sepsis A41.9
[2022-04-07] MEDS ORDERED: LINEZOLID CONSULT ACTIVE PRN ×2 (00:13→00:37)
[2022-04-07] MEDS ORDERED: LINEZOLID 600 MG/300 ML D5W IV STA (00:13)
[2022-04-07] MEDS ORDERED: SODIUM CHLORIDE 0.9% 1000ML 1,000 ML IV SCH (00:37)
[2022-04-07] MEDS ORDERED: ACETAMINOPHEN 325 MG TAB PO PRN (00:37)
[2022-04-07] MEDS ORDERED: ONDANSETRON INJ 2 MG/ML 2 ML VIAL IV PRN (00:37)
[2022-04-07] MEDS ORDERED: POTASSIUM CHLORIDE CRTAB 20 MEQ TABCR PO STA ×2 (01:40→20:12)
[2022-04-07] MEDS: LINEZOLID 600 MG/300 ML BAG IV SCH ×2 (01:42→14:27)
[2022-04-07] MEDS: MAGNESIUM SULFATE / D5W 1 GM/100 ML BAG IV SCH ×2 (02:11→04:15)
[2022-04-07] MEDS ORDERED: GLUCAGON FOR INJ 1 MG VIAL SQ PRN (02:52)
[2022-04-07] MEDS ORDERED: DEXTROSE 50% 50 ML SYRINGE IV PRN (02:52)
[2022-04-07] MEDS ORDERED: CARBOHYDRATES FOR HYPOGLYCEMIA PO PRN (02:52)
[2022-04-07] MEDS ORDERED: GLUCOSE 40% GEL 15 GM TUBE PO PRN (02:52)
[2022-04-07] MEDS ORDERED: GLUCOSE 10 TABS/TUBE PO PRN (02:52)
[2022-04-07] MEDS ORDERED: MECLIZINE HCL 25 MG TAB PO STA (03:10)
[2022-04-07] MEDS ORDERED: INSULIN ASPART PER UNIT SC ONE (04:00)
[2022-04-07 06:05] LABS: Eosinophils # (auto) 0.01 K/uL (0-0.5); Eosinophils % (auto) 0.1 %; Hematocrit (blood only) 31.9 % (37-47); Hemoglobin 10.5 g/dL (12.0-16.0); Immature Granulocytes # (auto) 0.03 K/uL (0.00-0.02); Immature Granulocytes % (auto) 0.4 %; Lymphocytes # (auto) 0.66 K/uL (1.2-3.4); Lymphocytes % (auto) 8.1 %; Mean Corpuscular Hemoglobin 25.3 pg (25-34); Mean Corpuscular Hgb Conc 32.9 g/dL (32-36); Mean Corpuscular Volume 76.9 fL (80-100); Mean Platelet Volume 10.3 fL (7.4-10.4); Monocytes # (auto) 0.53 K/uL (0.11-0.59); Monocytes % (auto) 6.5 %; Neutrophils # (auto) 6.88 K/uL (1.4-6.5); Neutrophils % (auto) 84.9 %; Platelet Count 242 K/uL (130-400); RDW Coefficient of Variation 15.4 % (11.5-14.5); RDW Standard Deviation 43.5 fL (36.4-46.3); Red Blood Count 4.15 M/uL (4.2-5.4); White Blood Count 8.11 K/uL (4.8-10.8)
[2022-04-07 06:33] LABS: Albumin Globulin Ratio 1.5 (0.9-2); Albumin Level 3.8 gm/dl (3.4-5.0); BUN Creatinine Ratio 16.5 (10-20); Bilirubin,Total 1.1 mg/dl (0.2-1.0); Calcium 9.3 mg/dl (8.5-10.1); Creatinine Clr Calc Pharmacy 36.9 ml/min; Est GFR (African American) 37.8 ml/min; Est GFR (Non-African American) 32.6 ml/min; Globulin 2.5 gm/dl (2.5-4.0); Magnesium 2.6 mg/dl (1.7-2.4); Total Protein 6.3 gm/dl (6.0-8.3)
--- NOTE | 2022-04-07 06:42 | Electrocardiogram Report ---
Test Reason : Blood Pressure : / mmHG Vent. Rate : 085 BPM Atrial Rate : 085 BPM P-R Int : 162 ms QRS Dur : 092 ms QT Int : 404 ms P-R-T Axes : 038 014 033 degrees QTc Int : 480 ms Poor data quality, interpretation may be adversely affected Normal sinus rhythm Left atrial enlargement Poor R wave progression, consider anterior IL vs. lead placement vs. LVH Abnormal ECG When compared with ECG of 20-JUL-2019 16:58, No significant change was found Confirmed by Carroll Caceres ([id number]) on 04/07/2022 6:41:44 AM Referred By: REFERRED SELF Confirmed By:Carroll Caceres
[2022-04-07 07:59] LABS: Estimated Average Glucose 117 mg/dl; Hemoglobin A1C 5.7 % (4.5-5.6)
[2022-04-07] MEDS: ENOXAPARIN INJ 40 MG/0.4 ML SYR SQ SCH (08:17)
[2022-04-07] MEDS: ATENOLOL 50 MG TABLET PO SCH ×2 (08:18→21:23)
[2022-04-07] MEDS: TACROLIMUS 1 MG CAP PO SCH (08:19)
[2022-04-07] MEDS: INSULIN ASPART PER UNIT SC SCH ×4 (08:33→20:55)
[2022-04-07] MEDS: NICOTINE 14 MG/24 HR PATCH TD SCH (08:33)
[2022-04-07] MEDS ORDERED: SULFA/TRIMETH 400/80MG TAB PO SCH (09:00)
[2022-04-07] MEDS ORDERED: LINEZOLID 600 MG/300 ML D5W IV SCH (09:00)
--- NOTE | 2022-04-07 09:05 | Ultrasound Report ---
US venous doppler LE BI CLINICAL HISTORY: worsening SOB/MON TECHNIQUE: Bilateral lower extremity real-time compression venous ultrasound with Color Doppler imagi ng. Utilizing real-time ultrasonic imaging multiple real time high-resolution ultrasonic images with compression and noncompression maneuvers of the deep venous system in addition to color doppler imagi ng were performed from the common femoral vein through the proximal calf veins. COMPARISON: None available at the time of this dictation. FINDINGS: Currently there is normal compressibility of the deep venous system from the common femoral vein thro ugh the proximal calf veins. No current evidence of acute thrombosis is identified. Impression: No evidence of deep venous thrombus. ACT 112: Negative or not required by law. Electronically signed by: Kb Michael M.D. 04/07/2022 9:03 AM
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
[2022-04-07] MEDS: CEFEPIME 2,000 MG in SYRINGE 0 ML IV SCH ×2 (09:21→22:14)
[2022-04-07 09:29] LABS: Lyme Ab IgG w/WB Rflx Negative (Negative); Lyme Ab IgM w/WB Rflx Negative (Negative)
[2022-04-07] MEDS: SODIUM CHLORIDE 1 GM TABLET PO SCH ×2 (11:02→21:22)
[2022-04-07 11:05] LABS: Appearance Urine Clear (Clear); Bacteria Urine Automated 1+ (Negative); Bilirubin Urine Negative (Negative); Blood Urine Negative (Negative); Cast Urine Automated 0 /lpf (0-5); Color Urine Yellow; Epithelial Cell Urine Auto >30 /lpf (0-5); Glucose Urine UA Trace (Negative); Ketones Urine Negative (Negative); Leukocyte Esterase Urine Negative (Negative); Nitrite Urine Negative (Negative); Protein Urine 2+ (Negative); RBC Urine Automated 0-4 /hpf (0-4); Urobilinogen Urine Negative (Negative)
[2022-04-07 11:14] LABS: Creatinine Urine Random 45.3 mg/dl; Protein Creatinine Ratio Urine 1.3 (0-0.2); Total Protein Urine Random 60.1 mg/dl (0-11.9)
--- NOTE | 2022-04-07 13:21 | Hospitalist Progress Note ---
Date of Service April 07, 2022 Assessment & Plan (1) Sepsis: Plan: Suspected at time of admission last evening. Given immunocompromised status placed on empiric coverage with cefepime/zyvox while awaiting blod/urine cx's. Triple screen COVID/flu/RSV neg, but repeated a more comprehensive panel ([facility] resp panel) - this also returned negative. Lyme screen negative. Anaplasmosis smear negative. Check mono with EBV titers. Check CMV titers. Follow cultures. (2) Bronchitis: Plan: Treated for such 7-10 days ago with prednisone. Never had cough. O2 sats wnl. [facility] resp panel fully negative. (3) Hypomagnesemia: Plan: Severely low at admission - 0.9. Now resolved s/p replacement. May have contributed to her severe chills/shakes/tremors. (4) Acute hyponatremia: Plan: Urine Na level <20 suggestive of solute deficiency. This is likely 2nd to chronic HCTZ use. Stop HCTZ. Agree with salt tabs. BMP in am. (5) Hypertension: Plan: Continue atenolol 50 mg p.o. twice daily. Hold HCTZ. (6) History of kidney transplant: Plan: Continue tacrolimus and Bactrim prophy. Consult Dr Espino, [facility] Nephrology. (7) Hypokalemia: Plan: Replete. repeat labs am. (8) Hypercalcemia: Plan: resolved s/p IV fluids BMP am. 2nd to dehydration? 2nd to HCTZ? (9) Rigors: Plan: Infectious vs electrolyte deficiency (mag, Na, K, etc) vs other. Improved. (10) Nicotine dependence: Plan: NicoDerm patch (11) Depression with anxiety: Plan: Holding escitalopram due to interaction with linezolid (12) Hypothyroidism: Plan: TSH this admission wnl has not been taking meds at home (13) Iron deficiency anemia: Plan: recheck Fe studies in am consider IV venofer if needed (14) Chronic renal failure, stage 3a: Plan: baseline CrCl 40s/50s bmp am Admission and Anticipated Discharge Date Admission Date: April 06, 2022 Subjective patient states she is "exhausted"/severely fatigued recent dyspnea/bronchitis symptoms were 7-10 days ago she does not have cough denies any current fever but did have subjective fevers during her bronchitis episode had significant "chill" yesterday -- body-wide shakes these, too, are resolved denies any runny nose, congestion, sore throat, change in taste/smell no nausea/emesis/diarrhea eating ok Review of Systems Review of Systems: gen - fatigue, recent fevers, recent chills pulm - no cough but did have dyspnea recently GI - no vomiting or diarrhea - no dysuria skin - no rash cv - no pain musculo - no swollen joints or myalgias Physical Exam Physical Exam: gen - looks tired, but nontoxic, NAD mouth - MMM nose - clear neck - no JVD, shotty lymph nodes b/l heart - RRR, s1 s2 lungs - CTA b/l abd - soft NT ND BS+ ext - no edema, pulses 2+ b/l musculo - no joint effusions skin - no rash Results & Data Results & Data ([facility]) Vital Signs (Past 12 Hours) Vital Signs Temp Pulse Pulse Resp BP Pulse Ox 04/07/22 11:46 36.5 C 77 16 137/98 99 04/07/22 10:00 77 04/07/22 08:34 36.8 C 79 16 130/94 98 04/07/22 03:54 90 04/07/22 03:52 36.5 C 73 16 140/94 99 04/07/22 01:40 36.6 C 94 H 18 110/89 95 Laboratory Results Laboratory Results - last 24 hr 04/06/22 04/06/22 04/06/22 20:28 22:48 23:13 WBC RBC Hgb Hct MCV MCH MCHC RDW Std Deviation RDW Coeff of Shukri Plt Count MPV Immature Gran % (Auto) Neut % (Auto) Lymph % (Auto) [place] % (Auto) Eos % (Auto) Baso % (Auto) Neut # (Auto) Lymph # (Auto) [place] # (Auto) Eos # (Auto) Baso # (Auto) Immature Gran # (Auto) Absolute Nucleated RBC Nucleated RBC % (auto) Sodium Potassium Chloride Carbon Dioxide Anion Gap BUN Creatinine Est Cr Clr Drug Dosing Est GFR ( Amer) Est GFR (Non-Af Amer) BUN/Creatinine Ratio Glucose POC Glucose Estimat Average Glucose Hemoglobin A1c Osmolality Lactate 1.3 Calcium Magnesium Total Bilirubin AST ALT Alkaline Phosphatase Total Creatine Kinase 36 Total Protein Albumin Globulin Albumin/Globulin Ratio 25-OH Vitamin D Total PTH Intact Urine Color Yellow Urine Appearance Clear Urine pH 7.0 Ur Specific [place] 1.005 Urine Protein 1+ H Urine Glucose (UA) Negative Urine Ketones Negative Urine Blood Negative Urine Nitrite Negative Urine Bilirubin Negative Urine Urobilinogen Negative Ur Leukocyte Esterase Negative Urine WBC (Auto) 1-5 Urine RBC (Auto) 0-4 U Hyaline Cast (Auto) 1-5 U Epithel Cells (Auto) 20-30 H Urine Bacteria (Auto) Negative Urine Osmolality Ur Random Creatinine U Random Total Protein Ur Random Sodium Protein/Creatinin Ratio Adenovirus (PCR) Anaplasma Smear B. pertussis DNA (PCR) B.parapertussis DNA PCR Lyme Disease IgG Ab Lyme Disease IgM Ab C. pneumoniae DNA (PCR) Coronavirus OC43 (PCR) Coronavirus HKU1 (PCR) Coronavirus 229E (PCR) SARS-CoV-2 (PCR) Coronavirus NL63 (PCR) Human Metapneumovir PCR Influenza Type A (PCR) Influenza Type B (PCR) M. pneumoniae (PCR) Parainfluenza 1 (PCR) Parainfluenza 2 (PCR) Parainfluenza 3 (PCR) Parainfluenza 4 (PCR) RSV (PCR) Entero/Rhino (PCR) Ref Lab Test Result 04/07/22 04/07/22 04/07/22 02:41 02:43 04:02 WBC RBC Hgb Hct MCV MCH MCHC RDW Std Deviation RDW Coeff of Shukri Plt Count MPV Immature Gran % (Auto) Neut % (Auto) Lymph % (Auto) [place] % (Auto) Eos % (Auto) Baso % (Auto) Neut # (Auto) Lymph # (Auto) [place] # (Auto) Eos # (Auto) Baso # (Auto) Immature Gran # (Auto) Absolute Nucleated RBC Nucleated RBC % (auto) Sodium Potassium Chloride Carbon Dioxide Anion Gap BUN Creatinine Est Cr Clr Drug Dosing Est GFR ( Amer) Est GFR (Non-Af Amer) BUN/Creatinine Ratio Glucose POC Glucose 281 H 296 H 283 H Estimat Average Glucose Hemoglobin A1c Osmolality Lactate Calcium Magnesium Total Bilirubin AST ALT Alkaline Phosphatase Total Creatine Kinase Total Protein Albumin Globulin Albumin/Globulin Ratio 25-OH Vitamin D Total PTH Intact Urine Color Urine Appearance Urine pH Ur Specific [place] Urine Protein Urine Glucose (UA) Urine Ketones Urine Blood Urine Nitrite Urine Bilirubin Urine Urobilinogen Ur Leukocyte Esterase Urine WBC (Auto) Urine RBC (Auto) U Hyaline Cast (Auto) U Epithel Cells (Auto) Urine Bacteria (Auto) Urine Osmolality Ur Random Creatinine U Random Total Protein Ur Random Sodium Protein/Creatinin Ratio Adenovirus (PCR) Anaplasma Smear B. pertussis DNA (PCR) B.parapertussis DNA PCR Lyme Disease IgG Ab Lyme Disease IgM Ab C. pneumoniae DNA (PCR) Coronavirus OC43 (PCR) Coronavirus HKU1 (PCR) Coronavirus 229E (PCR) SARS-CoV-2 (PCR) Coronavirus NL63 (PCR) Human Metapneumovir PCR Influenza Type A (PCR) Influenza Type B (PCR) M. pneumoniae (PCR) Parainfluenza 1 (PCR) Parainfluenza 2 (PCR) Parainfluenza 3 (PCR) Parainfluenza 4 (PCR) RSV (PCR) Entero/Rhino (PCR) Ref Lab Test Result 04/07/22 04/07/22 04/07/22 05:35 05:35 05:35 WBC 8.11 RBC 4.15 L Hgb 10.5 L Hct 31.9 L MCV 76.9 L MCH 25.3 MCHC 32.9 RDW Std Deviation 43.5 RDW Coeff of Shukri 15.4 H Plt Count 242 MPV 10.3 Immature Gran % (Auto) 0.4 Neut % (Auto) 84.9 Lymph % (Auto) 8.1 [place] % (Auto) 6.5 Eos % (Auto) 0.1 Baso % (Auto) 0.0 Neut # (Auto) 6.88 H Lymph # (Auto) 0.66 L [place] # (Auto) 0.53 Eos # (Auto) 0.01 Baso # (Auto) 0.00 Immature Gran # (Auto) 0.03 H Absolute Nucleated RBC 0.00 Nucleated RBC % (auto) 0.0 Sodium 126 L Potassium 4.0 D Chloride 95 L Carbon Dioxide 22 Anion Gap 9 BUN 31 H Creatinine 1.88 H Est Cr Clr Drug Dosing 36.9 Est GFR ( Amer) 37.8 Est GFR (Non-Af Amer) 32.6 BUN/Creatinine Ratio 16.5 Glucose 182 H POC Glucose Estimat Average Glucose Hemoglobin A1c Osmolality Lactate Calcium 9.3 Magnesium 2.6 H Total Bilirubin 1.1 H AST 10 L ALT 11 Alkaline Phosphatase 46 Total Creatine Kinase Total Protein 6.3 Albumin 3.8 Globulin 2.5 Albumin/Globulin Ratio 1.5 25-OH Vitamin D Total PTH Intact 287.9 H Urine Color Urine Appearance Urine pH Ur Specific [place] Urine Protein Urine Glucose (UA) Urine Ketones Urine Blood Urine Nitrite Urine Bilirubin Urine Urobilinogen Ur Leukocyte Esterase Urine WBC (Auto) Urine RBC (Auto) U Hyaline Cast (Auto) U Epithel Cells (Auto) Urine Bacteria (Auto) Urine Osmolality Ur Random Creatinine U Random Total Protein Ur Random Sodium Protein/Creatinin Ratio Adenovirus (PCR) Anaplasma Smear See Comment B. pertussis DNA (PCR) B.parapertussis DNA PCR Lyme Disease IgG Ab Lyme Disease IgM Ab C. pneumoniae DNA (PCR) Coronavirus OC43 (PCR) Coronavirus HKU1 (PCR) Coronavirus 229E (PCR) SARS-CoV-2 (PCR) Coronavirus NL63 (PCR) Human Metapneumovir PCR Influenza Type A (PCR) Influenza Type B (PCR) M. pneumoniae (PCR) Parainfluenza 1 (PCR) Parainfluenza 2 (PCR) Parainfluenza 3 (PCR) Parainfluenza 4 (PCR) RSV (PCR) Entero/Rhino (PCR) Ref Lab Test Result 04/07/22 04/07/22 04/07/22 05:35 05:35 05:35 WBC RBC Hgb Hct MCV MCH MCHC RDW Std Deviation RDW Coeff of Shukri Plt Count MPV Immature Gran % (Auto) Neut % (Auto) Lymph % (Auto) [place] % (Auto) Eos % (Auto) Baso % (Auto) Neut # (Auto) Lymph # (Auto) [place] # (Auto) Eos # (Auto) Baso # (Auto) Immature Gran # (Auto) Absolute Nucleated RBC Nucleated RBC % (auto) Sodium Potassium Chloride Carbon Dioxide Anion Gap BUN Creatinine Est Cr Clr Drug Dosing Est GFR ( Amer) Est GFR (Non-Af Amer) BUN/Creatinine Ratio Glucose POC Glucose Estimat Average Glucose 117 Hemoglobin A1c 5.7 H Osmolality Lactate Calcium Magnesium Total Bilirubin AST ALT Alkaline Phosphatase Total Creatine Kinase Total Protein Albumin Globulin Albumin/Globulin Ratio 25-OH Vitamin D Total 30.3 PTH Intact Urine Color Urine Appearance Urine pH Ur Specific [place] Urine Protein Urine Glucose (UA) Urine Ketones Urine Blood Urine Nitrite Urine Bilirubin Urine Urobilinogen Ur Leukocyte Esterase Urine WBC (Auto) Urine RBC (Auto) U Hyaline Cast (Auto) U Epithel Cells (Auto) Urine Bacteria (Auto) Urine Osmolality Ur Random Creatinine U Random Total Protein Ur Random Sodium Protein/Creatinin Ratio Adenovirus (PCR) Anaplasma Smear Cancelled B. pertussis DNA (PCR) B.parapertussis DNA PCR Lyme Disease IgG Ab Lyme Disease IgM Ab C. pneumoniae DNA (PCR) Coronavirus OC43 (PCR) Coronavirus HKU1 (PCR) Coronavirus 229E (PCR) SARS-CoV-2 (PCR) Coronavirus NL63 (PCR) Human Metapneumovir PCR Influenza Type A (PCR) Influenza Type B (PCR) M. pneumoniae (PCR) Parainfluenza 1 (PCR) Parainfluenza 2 (PCR) Parainfluenza 3 (PCR) Parainfluenza 4 (PCR) RSV (PCR) Entero/Rhino (PCR) Ref Lab Test Result 04/07/22 04/07/22 04/07/22 05:35 05:35 05:35 WBC RBC Hgb Hct MCV MCH MCHC RDW Std Deviation RDW Coeff of Shukri Plt Count MPV Immature Gran % (Auto) Neut % (Auto) Lymph % (Auto) [place] % (Auto) Eos % (Auto) Baso % (Auto) Neut # (Auto) Lymph # (Auto) [place] # (Auto) Eos # (Auto) Baso # (Auto) Immature Gran # (Auto) Absolute Nucleated RBC Nucleated RBC % (auto) Sodium Potassium Chloride Carbon Dioxide Anion Gap BUN Creatinine Est Cr Clr Drug Dosing Est GFR ( Amer) Est GFR (Non-Af Amer) BUN/Creatinine Ratio Glucose POC Glucose Estimat Average Glucose Hemoglobin A1c Osmolality Pending Lactate Calcium Magnesium Total Bilirubin AST ALT Alkaline Phosphatase Total Creatine Kinase Total Protein Albumin Globulin Albumin/Globulin Ratio 25-OH Vitamin D Total PTH Intact Urine Color Urine Appearance Urine pH Ur Specific [place] Urine Protein Urine Glucose (UA) Urine Ketones Urine Blood Urine Nitrite Urine Bilirubin Urine Urobilinogen Ur Leukocyte Esterase Urine WBC (Auto) Urine RBC (Auto) U Hyaline Cast (Auto) U Epithel Cells (Auto) Urine Bacteria (Auto) Urine Osmolality Ur Random Creatinine U Random Total Protein Ur Random Sodium Protein/Creatinin Ratio Adenovirus (PCR) Anaplasma Smear B. pertussis DNA (PCR) B.parapertussis DNA PCR Lyme Disease IgG Ab Negative Lyme Disease IgM Ab Negative C. pneumoniae DNA (PCR) Coronavirus OC43 (PCR) Coronavirus HKU1 (PCR) Coronavirus 229E (PCR) SARS-CoV-2 (PCR) Coronavirus NL63 (PCR) Human Metapneumovir PCR Influenza Type A (PCR) Influenza Type B (PCR) M. pneumoniae (PCR) Parainfluenza 1 (PCR) Parainfluenza 2 (PCR) Parainfluenza 3 (PCR) Parainfluenza 4 (PCR) RSV (PCR) Entero/Rhino (PCR) Ref Lab Test Result Pending 04/07/22 04/07/22 04/07/22 07:23 08:30 08:30 WBC RBC Hgb Hct MCV MCH MCHC RDW Std Deviation RDW Coeff of Shukri Plt Count MPV Immature Gran % (Auto) Neut % (Auto) Lymph % (Auto) [place] % (Auto) Eos % (Auto) Baso % (Auto) Neut # (Auto) Lymph # (Auto) [place] # (Auto) Eos # (Auto) Baso # (Auto) Immature Gran # (Auto) Absolute Nucleated RBC Nucleated RBC % (auto) Sodium Potassium Chloride Carbon Dioxide Anion Gap BUN Creatinine Est Cr Clr Drug Dosing Est GFR ( Amer) Est GFR (Non-Af Amer) BUN/Creatinine Ratio Glucose POC Glucose 135 H Estimat Average Glucose Hemoglobin A1c Osmolality Lactate Calcium Magnesium Total Bilirubin AST ALT Alkaline Phosphatase Total Creatine Kinase Total Protein Albumin Globulin Albumin/Globulin Ratio 25-OH Vitamin D Total PTH Intact Urine Color Urine Appearance Urine pH Ur Specific [place] Urine Protein Urine Glucose (UA) Urine Ketones Urine Blood Urine Nitrite Urine Bilirubin Urine Urobilinogen Ur Leukocyte Esterase Urine WBC (Auto) Urine RBC (Auto) U Hyaline Cast (Auto) U Epithel Cells (Auto) Urine Bacteria (Auto) Urine Osmolality Pending Ur Random Creatinine U Random Total Protein Ur Random Sodium 26 Protein/Creatinin Ratio Adenovirus (PCR) Anaplasma Smear B. pertussis DNA (PCR) B.parapertussis DNA PCR Lyme Disease IgG Ab Lyme Disease IgM Ab C. pneumoniae DNA (PCR) Coronavirus OC43 (PCR) Coronavirus HKU1 (PCR) Coronavirus 229E (PCR) SARS-CoV-2 (PCR) Coronavirus NL63 (PCR) Human Metapneumovir PCR Influenza Type A (PCR) Influenza Type B (PCR) M. pneumoniae (PCR) Parainfluenza 1 (PCR) Parainfluenza 2 (PCR) Parainfluenza 3 (PCR) Parainfluenza 4 (PCR) RSV (PCR) Entero/Rhino (PCR) Ref Lab Test Result 04/07/22 04/07/22 04/07/22 08:30 08:30 11:26 WBC RBC Hgb Hct MCV MCH MCHC RDW Std Deviation RDW Coeff of Shukri Plt Count MPV Immature Gran % (Auto) Neut % (Auto) Lymph % (Auto) [place] % (Auto) Eos % (Auto) Baso % (Auto) Neut # (Auto) Lymph # (Auto) [place] # (Auto) Eos # (Auto) Baso # (Auto) Immature Gran # (Auto) Absolute Nucleated RBC Nucleated RBC % (auto) Sodium Potassium Chloride Carbon Dioxide Anion Gap BUN Creatinine Est Cr Clr Drug Dosing Est GFR ( Amer) Est GFR (Non-Af Amer) BUN/Creatinine Ratio Glucose POC Glucose 116 H Estimat Average Glucose Hemoglobin A1c Osmolality Lactate Calcium Magnesium Total Bilirubin AST ALT Alkaline Phosphatase Total Creatine Kinase Total Protein Albumin Globulin Albumin/Globulin Ratio 25-OH Vitamin D Total PTH Intact Urine Color Yellow Urine Appearance Clear Urine pH 5.0 Ur Specific [place] 1.010 Urine Protein 2+ H Urine Glucose (UA) Trace H Urine Ketones Negative Urine Blood Negative Urine Nitrite Negative Urine Bilirubin Negative Urine Urobilinogen Negative Ur Leukocyte Esterase Negative Urine WBC (Auto) 1-5 Urine RBC (Auto) 0-4 U Hyaline Cast (Auto) 0 U Epithel Cells (Auto) >30 H Urine Bacteria (Auto) 1+ H Urine Osmolality Ur Random Creatinine 45.3 U Random Total Protein 60.1 H Ur Random Sodium Protein/Creatinin Ratio 1.3 H Adenovirus (PCR) Anaplasma Smear B. pertussis DNA (PCR) B.parapertussis DNA PCR Lyme Disease IgG Ab Lyme Disease IgM Ab C. pneumoniae DNA (PCR) Coronavirus OC43 (PCR) Coronavirus HKU1 (PCR) Coronavirus 229E (PCR) SARS-CoV-2 (PCR) Coronavirus NL63 (PCR) Human Metapneumovir PCR Influenza Type A (PCR) Influenza Type B (PCR) M. pneumoniae (PCR) Parainfluenza 1 (PCR) Parainfluenza 2 (PCR) Parainfluenza 3 (PCR) Parainfluenza 4 (PCR) RSV (PCR) Entero/Rhino (PCR) Ref Lab Test Result 04/07/22 04/07/22 04/07/22 13:26 15:52 16:27 WBC RBC Hgb Hct MCV MCH MCHC RDW Std Deviation RDW Coeff of Shukri Plt Count MPV Immature Gran % (Auto) Neut % (Auto) Lymph % (Auto) [place] % (Auto) Eos % (Auto) Baso % (Auto) Neut # (Auto) Lymph # (Auto) [place] # (Auto) Eos # (Auto) Baso # (Auto) Immature Gran # (Auto) Absolute Nucleated RBC Nucleated RBC % (auto) Sodium 131 L Potassium 3.4 L Chloride 100 Carbon Dioxide 20 L Anion Gap 11 BUN 31 H Creatinine 1.99 H Est Cr Clr Drug Dosing 34.8 Est GFR ( Amer) 35.3 Est GFR (Non-Af Amer) 30.4 BUN/Creatinine Ratio 15.6 Glucose 140 H POC Glucose 134 H Estimat Average Glucose Hemoglobin A1c Osmolality Lactate Calcium 9.6 Magnesium Total Bilirubin AST ALT Alkaline Phosphatase Total Creatine Kinase Total Protein Albumin Globulin Albumin/Globulin Ratio 25-OH Vitamin D Total PTH Intact Urine Color Urine Appearance Urine pH Ur Specific [place] Urine Protein Urine Glucose (UA) Urine Ketones Urine Blood Urine Nitrite Urine Bilirubin Urine Urobilinogen Ur Leukocyte Esterase Urine WBC (Auto) Urine RBC (Auto) U Hyaline Cast (Auto) U Epithel Cells (Auto) Urine Bacteria (Auto) Urine Osmolality Ur Random Creatinine U Random Total Protein Ur Random Sodium Protein/Creatinin Ratio Adenovirus (PCR) Not Detected Anaplasma Smear B. pertussis DNA (PCR) Not Detected B.parapertussis DNA PCR Not Detected Lyme Disease IgG Ab Lyme Disease IgM Ab C. pneumoniae DNA (PCR) Not Detected Coronavirus OC43 (PCR) Not Detected Coronavirus HKU1 (PCR) Not Detected Coronavirus 229E (PCR) Not Detected SARS-CoV-2 (PCR) Not Detected Coronavirus NL63 (PCR) Not Detected Human Metapneumovir PCR Not Detected Influenza Type A (PCR) Not Detected Influenza Type B (PCR) Not Detected M. pneumoniae (PCR) Not Detected Parainfluenza 1 (PCR) Not Detected Parainfluenza 2 (PCR) Not Detected Parainfluenza 3 (PCR) Not Detected Parainfluenza 4 (PCR) Not Detected RSV (PCR) Not Detected Entero/Rhino (PCR) Not Detected Ref Lab Test Result 04/07/22 20:13 WBC RBC Hgb Hct MCV MCH MCHC RDW Std Deviation RDW Coeff of Shurki Plt Count MPV Immature Gran % (Auto) Neut % (Auto) Lymph % (Auto) [place] % (Auto) Eos % (Auto) Baso % (Auto) Neut # (Auto) Lymph # (Auto) [place] # (Auto) Eos # (Auto) Baso # (Auto) Immature Gran # (Auto) Absolute Nucleated RBC Nucleated RBC % (auto) Sodium Potassium Chloride Carbon Dioxide Anion Gap BUN Creatinine Est Cr Clr Drug Dosing Est GFR ( Amer) Est GFR (Non-Af Amer) BUN/Creatinine Ratio Glucose POC Glucose 159 H Estimat Average Glucose Hemoglobin A1c Osmolality Lactate Calcium Magnesium Total Bilirubin AST ALT Alkaline Phosphatase Total Creatine Kinase Total Protein Albumin Globulin Albumin/Globulin Ratio 25-OH Vitamin D Total PTH Intact Urine Color Urine Appearance Urine pH Ur Specific [place] Urine Protein Urine Glucose (UA) Urine Ketones Urine Blood Urine Nitrite Urine Bilirubin Urine Urobilinogen Ur Leukocyte Esterase Urine WBC (Auto) Urine RBC (Auto) U Hyaline Cast (Auto) U Epithel Cells (Auto) Urine Bacteria (Auto) Urine Osmolality Ur Random Creatinine U Random Total Protein Ur Random Sodium Protein/Creatinin Ratio Adenovirus (PCR) Anaplasma Smear B. pertussis DNA (PCR) B.parapertussis DNA PCR Lyme Disease IgG Ab Lyme Disease IgM Ab C. pneumoniae DNA (PCR) Coronavirus OC43 (PCR) Coronavirus HKU1 (PCR) Coronavirus 229E (PCR) SARS-CoV-2 (PCR) Coronavirus NL63 (PCR) Human Metapneumovir PCR Influenza Type A (PCR) Influenza Type B (PCR) M. pneumoniae (PCR) Parainfluenza 1 (PCR) Parainfluenza 2 (PCR) Parainfluenza 3 (PCR) Parainfluenza 4 (PCR) RSV (PCR) Entero/Rhino (PCR) Ref Lab Test Result PG Care Time/CCT Total # of Minutes Spent Total Time Spent with Patient: Total time spent is greater than 50% in coordination of care (as documented) at patient's floor/unit and/or counseling patient: Coding Level of Care Code 55873 Subseq Hosp Care Lvl 3 Diagnoses Sepsis A41.9 Bronchitis J40 Hypomagnesemia E83.42 Acute hyponatremia E87.1 Hypertension I10 History of kidney transplant Z94.0 Hypokalemia E87.6 Hypercalcemia E83.52 Rigors R68.89 Nicotine dependence F17.200 Depression with anxiety F41.8 Hypothyroidism E03.9 Iron deficiency anemia D50.9 Chronic renal failure, stage 3a N18.31
[2022-04-07 15:09] LABS: Adenovirus PCR Not Detected (NotDetected); Bordetella parapertussis PCR Not Detected (NotDetected); Bordetella pertussis PCR Not Detected (NotDetected); Chlamydia pneumoniae PCR Not Detected (NotDetected); Coronavirus 229E PCR Not Detected (NotDetected); Coronavirus CoV-2 (COVID19)PCR Not Detected (NotDetected); Coronavirus HKU1 PCR Not Detected (NotDetected); Coronavirus NL63 PCR Not Detected (NotDetected); Coronavirus OC43PCR Not Detected (NotDetected); Human Metapneumovirus PCR Not Detected (NotDetected); Influenza A PCR Not Detected (NotDetected); Influenza B PCR Not Detected (NotDetected); Mycoplasma pneumoniae PCR Not Detected (NotDetected); Parainfluenza Virus 1 PCR Not Detected (NotDetected); Parainfluenza Virus 2 PCR Not Detected (NotDetected); Parainfluenza Virus 3 PCR Not Detected (NotDetected); Parainfluenza Virus 4 PCR Not Detected (NotDetected); Respiratory Syncytial VirusPCR Not Detected (NotDetected); Rhinovirus/Enterovirus PCR Not Detected (NotDetected)
[2022-04-07 18:16] LABS: BUN Creatinine Ratio 15.6 (10-20); Calcium 9.6 mg/dl (8.5-10.1); Creatinine Clr Calc Pharmacy 34.8 ml/min; Est GFR (African American) 35.3 ml/min; Est GFR (Non-African American) 30.4 ml/min; Potassium 3.4 mmol/L (3.5-5.1)
[2022-04-07] MEDS ORDERED: TACROLIMUS 1 MG CAP PO SCH (21:00)
[2022-04-08] MEDS: LINEZOLID 600 MG/300 ML BAG IV SCH (01:07)
[2022-04-08 06:52] LABS: Basophils # (auto) 0.01 K/uL (0-0.2); Basophils % (auto) 0.2 %; Eosinophils # (auto) 0.13 K/uL (0-0.5); Hematocrit (blood only) 30.1 % (37-47); Hemoglobin 9.7 g/dL (12.0-16.0); Immature Granulocytes # (auto) 0.03 K/uL (0.00-0.02); Immature Granulocytes % (auto) 0.5 %; Lymphocytes # (auto) 2.03 K/uL (1.2-3.4); Lymphocytes % (auto) 30.9 %; Mean Corpuscular Hemoglobin 25.1 pg (25-34); Mean Corpuscular Hgb Conc 32.2 g/dL (32-36); Mean Platelet Volume 10.2 fL (7.4-10.4); Monocytes # (auto) 0.47 K/uL (0.11-0.59); Monocytes % (auto) 7.2 %; Neutrophils # (auto) 3.89 K/uL (1.4-6.5); Neutrophils % (auto) 59.2 %; Platelet Count 203 K/uL (130-400); RDW Coefficient of Variation 16.1 % (11.5-14.5); RDW Standard Deviation 45.8 fL (36.4-46.3); Red Blood Count 3.86 M/uL (4.2-5.4); White Blood Count 6.56 K/uL (4.8-10.8)
[2022-04-08] MEDS: NICOTINE 14 MG/24 HR PATCH TD SCH (07:42)
[2022-04-08] MEDS: ATENOLOL 50 MG TABLET PO SCH (07:45)
[2022-04-08] MEDS: TACROLIMUS 1 MG CAP PO SCH (07:45)
[2022-04-08 07:58] LABS: BUN Creatinine Ratio 13.5 (10-20); Calcium 9.5 mg/dl (8.5-10.1); Creatinine Clr Calc Pharmacy 33.3 ml/min; Est GFR (African American) 33.4 ml/min; Est GFR (Non-African American) 28.8 ml/min; Potassium 4.5 mmol/L (3.5-5.1)
[2022-04-08 08:13] LABS: Ferritin 8.3 ng/ml (8-388)
[2022-04-08] MEDS: ENOXAPARIN INJ 40 MG/0.4 ML SYR SQ SCH (08:19)
[2022-04-08] MEDS: INSULIN ASPART PER UNIT SC SCH ×2 (08:21→11:45)
--- NOTE | 2022-04-08 08:56 | Nephrology Progress Note ---
Date of Service April 08, 2022 Assessment & Plan (1) Immunocompromised: Plan: * Patient presents w/ progressive bronchitic symptoms (cough, malaise). Viral testing including COVID, influenza, RSV and CMV were negative 04/06/22. EBV is pendnig. CXR negative for infiltrate. LE doppler negative for DVT. V/Q scan is pending. Patient is on empiric Cefepime and Linezolid. 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 Baseline Cr 1.6 * Immunosuppressive regimen consists only of Tacrolimus 3mg po qAM/2mg po qPM * Will order transplant US * Cr has been 1.6 - 1.9 depending upon hydration status (3) Hyponatremia: Plan: * Euvolemic hyponatremia. Cr dropped slightly in response to IV NS. Uosm pending * Serum sodium has corrected off HCTZ with NaCl tablet administration * Recommend avoiding HCTZ (4) Hypertension: Plan: * HCTZ stopped due to hyponatremia, hypomagnesemia, hypokalemia * Now on Atenolol for BP control Admission and Anticipated Discharge Date Admission Date: April 06, 2022 Subjective Miss Will was evaluated in her hospital room this morning. She reports that her cough, dyspnea and weakness are subjectively improved Review of Systems Constitutional: + weakness Eyes: no problem reported Ear, Nose, Mouth, Throat: no problem reported Respiratory: no cough and no dyspnea Cardiovascular: no chest pain, no palpitations and no edema Gastrointestinal: no abdominal pain, no nausea, no vomiting and no diarrhea/l oose stools Genitourinary: no dysuria and no hematuria Musculoskeletal: no back pain Integumentary: no rash Neurologic: no confusion Physical Exam Constitutional: no acute distress Eyes: PERRL, conjunctivae normal, anicteric sclerae ENMT: external ear and nose normal, oropharynx normal Neck: trachea midline, no thyromegaly Respiratory: normal respiratory effort, lungs clear to auscultation Cardiovascular: RRR, no murmur, no edema Gastrointestinal (Abdomen): normal bowel sounds, soft, nontender, no hepatosplenomegaly RLQ transplant allograft was nontender to palpation. No arterial bruit Skin: no rashes, warm and dry Neurologic: awake; not confused Results & Data ([facility]) Vital Signs (Past 12 Hours) Vital Signs Temp Pulse Pulse Resp BP Pulse Ox 04/08/22 07:25 36.6 C 72 20 158/105 H 96 04/08/22 02:48 36.6 C 63 16 140/96 97 04/07/22 23:47 36.6 C 69 18 133/89 97 04/07/22 22:17 84 Laboratory Results Laboratory Tests 04/07/22 04/07/22 04/08/22 08:30 08:30 06:36 WBC Hgb Hct Plt Count Sodium 136 Potassium 4.5 D Chloride 106 Carbon Dioxide 25 BUN 28 H Creatinine 2.08 H Glucose 84 Urine Color Yellow Urine Protein 2+ H Urine Glucose (UA) Trace H Urine Blood Negative Urine WBC (Auto) 1-5 Urine RBC (Auto) 0-4 Protein/Creatinin Ratio 1.3 H 04/08/22 06:36 WBC 6.56 Hgb 9.7 L Hct 30.1 L Plt Count 203 Sodium Potassium Chloride Carbon Dioxide BUN Creatinine Glucose Urine Color Urine Protein Urine Glucose (UA) Urine Blood Urine WBC (Auto) Urine RBC (Auto) Protein/Creatinin Ratio PG Care Time/CCT Total # of Minutes Spent Total Time Spent with Patient: Total time spent is greater than 50% in coordination of care (as documented) at patient's floor/unit and/or counseling patient: Coding Level of Care Code 66763 Subseq Hosp Care Lvl 3 Diagnoses Immunocompromised D84.9 History of kidney transplant Z94.0 Hyponatremia E87.1 Hypertension I10
[2022-04-08] MEDS ORDERED: IRON SUCROSE 300 MG in SODIUM CHLORIDE 0.9% 250 ML IV ONE (11:00)
[2022-04-08] MEDS: CEFEPIME 2,000 MG in SYRINGE 0 ML IV SCH (11:12)
--- NOTE | 2022-04-08 12:50 | Ultrasound Report ---
US renal transplant w dop HISTORY: 41 years-old Female FADUMO/CKD, HTN hypertension with acute kidney injury COMPARISON: CT abdomen and pelvis 07/20/2019, renal ultrasound 03/30/2012. TECHNIQUE: Multiple real-time sonographic images of the from the right lower quadrant kidney and urin ava bladder were obtained assessing grayscale appearance, color and spectral flow FINDINGS: Transplanted kidney within the abdominal right lower quadrant measures 10.4 cm in length and demonstr ates mildly increased echogenicity of the parenchyma. Proximal renal artery demonstrates peak systoli c velocities measuring up to 170 cm/s. Resistive indices measure up to 0.68. No hydronephrosis or alisha al calculi. Unremarkable urinary bladder. Marked atrophy of the bilateral [place] kidneys are suboptimally visuali zed. IMPRESSION: 1. No hydronephrosis. 2. Increased echogenicity of the parenchyma involving the transplanted kidney may represent chronic m edical renal disease. ACT 112: Negative or not required by law. The above report was generated using voice recognition software. It may contain grammatical, syntax o r spelling errors. Electronically signed by: Poncho Araujo M.D. 04/08/2022 12:48 PM
--- NOTE | 2022-04-08 12:56 | Discharge Summary ---
Date of Service date of admission - April 06, 2022 date of discharge - April 08, 2022 Admission HPI Per Admitting Provider The patient is a 41-year-old female with a past medical history including renal transplant chronically immunocompromised, nicotine dependence, CKD, depression with anxiety, hypothyroidism, vitamin D deficiency, hypertension, iron deficiency anemia, ADHD, cephalic vein thrombosis and migraine. She presents to the emergency department with a few hours of generalized weakness, fatigue, shaking, shortness of breath, lightheadedness and dizziness. She denies any recent travel or sick exposures. She reports having been started on prednisone about 1 week ago for bronchitis, but feels that her symptoms have progressed since that time. She denies any change in urine function or bowel function. Principal Diagnosis 1. severe hypomagnesemia 2. hyponatremia 3. hypokalemia Discharge Exam gen - looks much better today, nontoxic, NAD mouth - MMM neck - no JVD heart - RRR, s1 s2, no murmur lungs - CTA b/l abd - soft NT ND BS+ ext - no edema, pulses 2+ b/l musculo - no joint effusions skin - no rash Discharge Data Allergies Allergy/AdvReac Type Severity Reaction Status Date / Time tramadol Allergy Intermediate ITCHING Verified 04/06/22 21:17 Consultations [facility] Ordered Studies Chest X-Ray 04/06/22 20:55 SINGLE VIEW CHEST CLINICAL HISTORY: Generalized weakness. FINDINGS: An AP, portable, upright chest radiograph is compared to study dated 03/31/2022 and correlated with chest CT dated 07/20/2019. The cardiomediastinal silhouette is unremarkable. The lungs and pleural spaces are clear. No pneumothorax is seen. The bony thorax is grossly intact. IMPRESSION: No active disease in the chest. ACT 112: Negative or not required by law. Electronically signed by: Pranav Bey M.D. 04/06/2022 9:50 PM Venous Doppler Study 04/07/22 01:35 US venous doppler LE CLINICAL HISTORY: worsening SOB/MON TECHNIQUE: Bilateral lower extremity real-time compression venous ultrasound with Color Doppler imaging. Utilizing real-time ultrasonic imaging multiple real time high-resolution ultrasonic images with compression and noncompression maneuvers of the deep venous system in addition to color doppler imaging were performed from the common femoral vein through the proximal calf veins. COMPARISON: None available at the time of this dictation. FINDINGS: Currently there is normal compressibility of the deep venous system from the common femoral vein through the proximal calf veins. No current evidence of acute thrombosis is identified. Impression: No evidence of deep venous thrombus. ACT 112: Negative or not required by law. Electronically signed by: Kb Michael M.D. 04/07/2022 9:03 AM Renal Ultrasound 04/08/22 10:06 US renal transplant w dop HISTORY: 41 years-old Female FADUMO/CKD, HTN hypertension with acute kidney injury COMPARISON: CT abdomen and pelvis 07/20/2019, renal ultrasound 03/30/2012. TECHNIQUE: Multiple real-time sonographic images of the from the right lower quadrant kidney and urinary bladder were obtained assessing grayscale appearance, color and spectral flow FINDINGS: Transplanted kidney within the abdominal right lower quadrant measures 10.4 cm in length and demonstrates mildly increased echogenicity of the parenchyma. Proximal renal artery demonstrates peak systolic velocities measuring up to 170 cm/s. Resistive indices measure up to 0.68. No hydronephrosis or renal calculi. Unremarkable urinary bladder. Marked atrophy of the bilateral [place] kidneys are suboptimally visualized. IMPRESSION: 1. No hydronephrosis. 2. Increased echogenicity of the parenchyma involving the transplanted kidney may represent chronic medical renal disease. ACT 112: Negative or not required by law. The above report was generated using voice recognition software. It may contain grammatical, syntax or spelling errors. Electronically signed by: Poncho Araujo M.D. 04/08/2022 12:48 PM Hospital Course (1) Sepsis: RULED OUT. Suspected at time of admission as she reported severe shaking (or chills), fatigue, recent "bronchitis," and simply feeling poorly. Given immunocompromised status placed on empiric coverage with cefepime/zyvox while awaiting blood/urine cultures. Blood/urine cultures remained negative and thus antibiotics were stopped at time of hospital discharge. Triple screen COVID/flu/RSV was negative, but repeated a more comprehensive panel ([employer] respiratory panel) - this also returned fully negative. Lyme screen negative. Anaplasmosis smear negative. mono screen was negative; EBV titers were dispatched & were pending at time of discharge. CMV titers were sent & pending at discharge. At discharge it was suspected that her severe hypomagnesemia, hypercalcemia, hyponatremia, and hypokalemia were the likely culprits for her presenting symptoms. (2) Rigors: At time of admission an Infectious etiology vs electrolyte deficiency (mag, Na, K, etc) was suspected. Rigors improved/resolved with repletion of low magnesium and resolution of low sodium/low K/high calcium. NO INFECTIOUS ETIOLOGY WAS FOUND as noted in #1 above. (3) Bronchitis: Treated for such 7-10 days prior to admission with prednisone. Never had cough with that illness. O2 sats were normal the entire hospital stay. [employer] resp panel fully negative. CXR was negative for infiltrates. (4) Hypomagnesemia: Severely low at admission - 0.9. Now resolved s/p replacement. Likely contributed to her severe chills/shakes/tremors at time of presentation. Low magnesium was 2nd to HCTZ use. (5) Acute hyponatremia: Urine Na level <20 suggestive of solute deficiency. This was likely 2nd to chronic HCTZ use. Lowest Na level was 126. HCTZ was STOPPED. Patient was given IV fluids followed by salt tablets. Sodium was normal at time of discharge (136). (6) Hypertension: Continue atenolol 50 mg p.o. twice daily. STOPPED HCTZ due to low sodium, low magnesium, high calcium, and low potassium. (7) History of kidney transplant: Continue tacrolimus and Bactrim prophylaxis. Dr Sai Espino, [facility], provided kramer recommendations during the stay. (8) Hypokalemia: Repleted and resolved prior to discharge. (9) Hypercalcemia: Resolved s/p IV fluids. Suspect 2nd to HCTZ. (10) Nicotine dependence: Counseled to quit. (11) Depression with anxiety: Continue escitalopram. (12) Hypothyroidism: TSH this admission wnl Was not on synthroid replacement at time of admission (13) Iron deficiency anemia: Ferritin = 8 Transferrin saturation = 12% IV venofer 300mg x 1 given during the visit Hemoglobin at discharge was 9.7 (14) Chronic renal failure, stage 3a: baseline CrCl 40s/50s baseline creatinine = 1.8 - 1.9 discharge creatinine = 2 she will need a repeat BMP at time of hospital f/u (within 1 week ideally) (15) Prediabetes: HbA1c 5.7% follow with time patient made aware of this diagnosis Total Time Total Time Spent Total Time Spent (In Minutes): 45 Discharge Plan Discharge Items Patient Disposition: Home - Self-Care Reason For Visit: Low sodium, low potassium, low magnesium Discharge Diagnosis: 1. concern for sepsis/infection - ruled out, all testing negative for pneumonia, blood stream infection, COVID, etc 2. low magnesium - resolved 3. low sodium - resolved 4. low potassium - resolved 5. high calcium level - resolved 6. severe iron deficiency - iron infusion x 1 given 7. pre-diabetes - hemoglobin a1c 5.7% - follow-up with your family doctor for this Activity: Resume your previous activity Non-emergency contact: Primary Care Provider and Laboratory Geneticist Call non-emergency contact if: you have any medication questions and your symptoms worsen Follow-up/Referrals: Sai Espino MD [Physician] - 04/16/22 11:15 am (Please follow up with Dr. Espino on Thursday04/16/22 at 11:15 am. Please arrive to the office at 11:00 am for your appointment. If you are unable to keep this appointment, please call the office to reschedule at [phone].) Stefany Azevedo PA-C [Primary Care Provider] - 04/15/22 3:00 pm (Please follow up with Stefany Azevedo PA-C on Thursday04/15/22 at 3:00 pm. Please arrive to the office at 2:45 pm for your appointment. If you are unable to keep this appointment, please call the office to reschedule at [phone].) Diet: Heart Healthy Add Attending Provider Instructions: Ms Will, You were hospitalized after having had a tremor/cold chill sensation at home. This was in the setting of you having had a recent bronchitis illness. At time of admission your sodium was quite low, your potassium and magnesium levels were low, and your calcium was mildly elevated. All of these electrolyte abnormalities were likely due to your HCTZ (hydrochlorothiazide) use. This has been discontinued. We were concerned for infection therefore we performed a respiratory panel looking for viruses & bacteria; this returned negative. Your chest x-ray did not show pneumonia. Your blood cultures have been negative. COVID testing was negative. I do believe you had a recent illness -- we simply were unable to isolate a specific bug that caused it. Retrospectively I believe that the tremor/shakes/chill you had had was due to the low potassium/magnesium/sodium. All of the electrolyte abnormalities have resolved prior to discharge. Your doppler ultrasounds of the legs did NOT show DVT blood clots. Your heart monitoring was normal. Your kidney ultrasound showed good flow of urine from the transplant down to the bladder. Recommendations - 1. STOP your hydrochlorothiazide (HCTZ). 2. Focus on good hydration over the next few days especially on the warm/hot days. 3. For your breathing difficulty - please speak to your family doctor and Dr Espino about obtaining a stress test to ensure your heart is not the cause of the shortness of breath. I would also recommend that you see a lung specialist to have lung testing to rule out asthma/asthmatic conditions or other conditions leading to your breathing difficulty. Your chest x-ray here was normal. Please speak to your family doctor about ways to quit smoking. Follow-up - see separate section Return to [facility] if - * you have fevers over 100 degrees * you have worsening shortness of breath * you have chest pains * any other concerns It was our pleasure to care for you! Dr Aly Pending Studies at Discharge: Yes Studies:: testing for mono virus and CMV virus. blood cultures pending but thus far negative (no bacterial infection in the blood). Stand-Alone Forms: My [facility], Work/School Release, Smoking Cessation Medications and DC Order Prescriptions: Continued triamcinolone acetonide 0.025 % cream 1 applic topical BID PRN (Reason: itching) Qty: 80 RF: 3 tacrolimus 1 mg capsule See Rx Instructions PO .COMPLEX Qty: 1 RF: 0 escitalopram oxalate 10 mg tablet 10 mg PO DAILY Qty: 30 RF: 5 atenolol 50 mg Tablet 50 mg PO BID RF: 0 sulfamethoxazole-trimethoprim 400-80 mg tablet 1 tab PO 3XWK RF: 0 albuterol sulfate 90 mcg/actuation HFA aerosol inhaler 1 inh INHALATION DAILY RF: 0 Discontinued hydrochlorothiazide 12.5 mg tablet 12.5 mg PO BID Qty: 60 RF: 0 Discharge Orders: Discharge Order (Routine); Ordered 04/08/22 Ordered By: Mahad Nur/Other Patient Handouts: A1C, Prediabetes Admission Data Admit Date/Time: 04/06/22 23:55 Attending Provider: Mahad Aly Admit Provider: Rashid Maxwell Primary Care Provider: Stefany Azevedo Other Providers: Sai Espino Other Interventions: Discharge Summary Assessment (RN) Last Done: 04/08/22 12:57 Coding Level of Care Code D/C DAY MANAGEMENT >30 MINS Diagnoses Sepsis A41.9 Bronchitis J40 Hypomagnesemia E83.42 Acute hyponatremia E87.1 Hypertension I10 History of kidney transplant Z94.0 Hypokalemia E87.6 Hypercalcemia E83.52 Rigors R68.89 Nicotine dependence F17.200 Depression with anxiety F41.8 Hypothyroidism E03.9 Iron deficiency anemia D50.9 Chronic renal failure, stage 3a N18.31 Prediabetes R73.03
[2022-04-09 13:46] LABS: CMV IgG Antibody <0.60 U/mL; CMV IgM Antibody <30.00 AU/mL
[2022-04-09 14:26] LABS: Epstein Barr Virus Early Ag Ab <9.00 U/mL
== END 2022-04-08 13:58 | disposition home or self-care (01) | DRG 641 ==
LOC: ED 19:45 → EDINP 23:55 → SUATTDRO 23:55 → 2E 04-07 01:12

== ENCOUNTER 2022-06-30 09:15 | Inpatient (IN) ==
[2022-06-30] MEDS ORDERED: diphenhydrAMINE 50 MG/ML VIAL IV STA (10:13)
[2022-06-30] MEDS ORDERED: KETOROLAC TROMETHAMINE 15 MG/ML VIAL IV ONE (10:13)
[2022-06-30] MEDS ORDERED: PROCHLORPERAZINE 2 ML IV ONE (10:13)
--- NOTE | 2022-06-30 10:17 | Emergency Department Note ---
Impression & Plan Headache, Hypertension, Arm paresthesia, left ED Provider Note NAME: JONAS YOUNG AGE: 41 SEX: F : 1980 ARRIVES VIA: Walk-In INFORMANT: Patient ED PROVIDER(S): Ranjith Szymanski DO CHIEF COMPLAINT: headache HPI: Patient is a 41-year-old female with a past medical history of migraines, renal transplant who presents to the ER for right-sided headache. This feels like her typical migraines. It started around 3 AM this morning. It is focal on the right frontal region. Light makes it worse. She notes she does get some blurry vision with this headache and is typical for her migraines. She has some paresthesias of her bilateral hands but is worse on the left arm. Denies any weakness. No chest pain, shortness of breath, but does admit to nausea and vomiting which she does get as well with her migraines. No dysuria, urgency, or frequency. No other exacerbating or remitting factors. ROS: See above HPI for pertinent positives & negatives. A total of 10 systems reviewed and were otherwise negative. PAST MEDICAL HISTORY:See Below PAST SURGICAL HISTORY:See Below FAMILY HISTORY:See Below SOCIAL HISTORY:See Below HOME MEDICATIONS:See Below ALLERGIES:See Below VITALS:See Below PHYSICAL EXAMINATION: GENERAL: Sitting up in bed, alert, well appearing, well nourished, no distress, non-toxic EYE EXAM: normal conjunctiva. PERRL and EOM's intact. OROPHARYNX: no exudate, no erythema, lips, buccal mucosa, and tongue normal and mucous membranes are moist NECK: supple, no nuchal rigidity, no adenopathy, non-tender LUNGS: Clear to auscultation. Normal chest wall mechanics HEART: no murmurs, S1 normal and S2 normal ABDOMEN: abdomen soft, non-tender, normo-active bowel sounds, no masses, no rebound or guarding. UPPER EXTREMITIES: upper extremities are grossly normal. LOWER EXTREMITIES: No pitting edema. NEURO EXAM: Normal sensorium, cranial nerves II-XII intact, normal speech, no weakness of arms, no weakness of legs. No drift. Finger to nose intact. Gross sensation intact. Rapid alternating movements of her extremities intact. Grey l-to-doshi intact. Without difficulty MEDICAL DECISION MAKING: Patient is a 41-year-old female who presents the ER for headache. This feels like her migraines but worse and slightly different. IVs were established blood work was obtained. Labs show no significant acidosis or anemia. BMP with creatinine 1.7. Calcium was up at 10. Tacrolimus was ordered due to the renal transplant. COVID was negative. Systolic pressures up in the 200s. CT as well as angios of the head and neck were negative with exception of some white matter changes. Discussed with Dr. Flores from [facility] neurology and he recommend admission as well as Solu-Medrol 500 mg IV and Depakote 500 mg IV and they will evaluate. Patient was given IV hydralazine for the significantly elevated blood pressures following already receiving IV Benadryl, Compazine, Toradol followed by morphine. She was sleepy but pressures were still elevated. She notes she did take all of her medications today. Triage Nursing notes reviewed. Limited review of prior medical records performed Vital Signs: reviewed and remarkable for HTN Differential diagnosis: Differential Diagnosis includes but is not limited to headache, tension headache, cluster headache, migraine, subarachnoid hemorrhage, meningitis, mass, central venous thrombus, concussion, trauma and epidural/subdural hemorrhage. ER treatment provided: See below Diagnostics interpreted by me: ECG: none Cardiac Monitoring: An order was placed for continuous cardiac monitoring. The monitor shows a rate of 90 with sinus rhythm. Laboratory studies: As stated above and show below. Imaging studies: CT head as well as angio of the head and neck were negative as discussed above with exception of white matter changes Consultation(s): Discussed with Hong Choe for further evaluation from the [facility] service Discussed with luis neurology as described above Procedures: none Critical Care: None Past Med/Surg History Medical History (Updated 06/30/22 @ 15:46 by Ranjith Szymanski DO) AVF (arteriovenous fistula) (~11/2004) Ligated 04/14 Concussion Depression with anxiety alcohol syndrome FHx unknown. Adopted. 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 Feels Safe at Home: Yes Assistive Devices: None Allergies Allergies Allergy/AdvReac Type Severity Reaction Status Date / Time tramadol Allergy Intermediate ITCHING Verified 06/23/22 16:52 Home Meds Home Medications Medication Instructions Recorded Confirmed atenolol 50 mg tablet 50 mg PO BID 09/10/18 04/15/22 sulfamethoxazole 400 1 tab PO 3XWK 09/10/18 04/15/22 mg-trimethoprim 80 mg tablet albuterol sulfate 90 mcg/actuation 1 inh inhalation DAILY 04/06/22 04/15/22 aerosol inhaler Previous Rx's Medication Instructions Recorded tacrolimus 1 mg capsule, See Rx Instructions PO .COMPLEX #1 03/04/22 immediate-release cap escitalopram oxalate 20 mg tablet 20 mg PO DAILY #90 tabs 06/24/22 lorazepam 0.5 mg tablet 0.5 mg PO DAILY PRN anxiety #10 06/24/22 tabs Results & Data (ED) Vital Signs Vital Signs - 24 hr 06/30/22 09:17 06/30/22 10:38 06/30/22 11:32 Temperature 36.8 C Temperature Source Temporal Artery Scan Pulse Rate 88 Pulse Rate [Apical] Pulse Rate [Finger] 90 Pulse Rhythm [Apical] Pulse Rhythm [Finger] Pulse Strength [Finger] Respiratory Rate 18 16 Respiratory Effort / Characteristics Non-Labored Spontaneous Respiratory Depth Normal Blood Pressure 206/138 H Blood Pressure [Right Arm] 198/119 H Blood Pressure Mean 160 Blood Pressure Mean [Right Arm] 145 Pulse Oximetry 99 98 Oxygen Delivery Method Room Air Room Air Sepsis Recent Fever Within 48 Hours No Sepsis New/Unexplained Change in Mental Status No Sepsis Action Taken by Nursing No Action Required 06/30/22 12:35 06/30/22 13:35 06/30/22 14:52 Temperature Temperature Source Pulse Rate Pulse Rate [Apical] 87 Pulse Rate [Finger] 80 89 Pulse Rhythm [Apical] Regular Pulse Rhythm [Finger] Regular Pulse Strength [Finger] Normal Respiratory Rate 16 16 14 Respiratory Effort / Characteristics Non-Labored Spontaneous Non-Labored Spontaneous Non-Labored Respiratory Depth Normal Normal Normal Blood Pressure Blood Pressure [Right Arm] 196/133 H 218/129 H 169/110 H Blood Pressure Mean Blood Pressure Mean [Right Arm] 154 158 129 Pulse Oximetry 96 98 97 Oxygen Delivery Method Room Air Room Air Room Air Sepsis Recent Fever Within 48 Hours Sepsis New/Unexplained Change in Mental Status Sepsis Action Taken by Nursing 06/30/22 15:33 Temperature Temperature Source Pulse Rate Pulse Rate [Apical] 87 Pulse Rate [Finger] Pulse Rhythm [Apical] Pulse Rhythm [Finger] Pulse Strength [Finger] Respiratory Rate 14 Respiratory Effort / Characteristics Non-Labored Spontaneous Respiratory Depth Normal Blood Pressure Blood Pressure [Right Arm] 160/106 H Blood Pressure Mean Blood Pressure Mean [Right Arm] 124 Pulse Oximetry 97 Oxygen Delivery Method Room Air Sepsis Recent Fever Within 48 Hours Sepsis New/Unexplained Change in Mental Status Sepsis Action Taken by Nursing Laboratory Data Result diagrams: 06/30/22 10:30 06/30/22 10:30 Lab Results 06/30/22 06/30/22 06/30/22 Range/Units 10:30 10:30 10:30 WBC 9.21 (4.8-10.8) K/ul RBC 4.85 (3.93-5.22) M/uL Hgb 14.5 (12.0-16.0) g/dl Hct 42.2 (34.1-44.9) % MCV 87.0 (80.0-100.0) fL MCH 29.9 (25.0-34.0) pg MCHC 34.4 (32.0-36.0) g/dL RDW Std Deviation 43.7 (36.4-46.3) fL RDW Coeff of Shukri 13.7 (11.5-14.5) % Plt Count 171 (130-400) K/uL MPV 10.6 (9.4-12.3) fL Immature Gran % (Auto) 0.4 % Neut % (Auto) 86.6 % Lymph % (Auto) 7.7 % Blair % (Auto) 3.3 % Eos % (Auto) 1.7 % Baso % (Auto) 0.3 % Neut # (Auto) 7.97 H (1.4-6.5) K/uL Lymph # (Auto) 0.71 L (1.2-3.4) K/uL Blair # (Auto) 0.30 (0.24-0.82) K/uL Eos # (Auto) 0.16 (0-0.50) K/uL Baso # (Auto) 0.03 (0-0.2) K/uL Immature Gran # (Auto) 0.04 H (0.00-0.02) K/uL Sodium 138 (136-145) mmol/L Potassium 3.8 (3.5-5.1) mmol/L Chloride 103 (98-107) mmol/L Carbon Dioxide 25 (21-32) mmol/L Anion Gap 10 (3-11) BUN 15 (6-23) mg/dl Creatinine 1.47 H (0.6-1.2) mg/dl Est Cr Clr Drug Dosing 47.1 ml/min Est GFR ( Amer) 50.9 ml/min Est GFR (Non-Af Amer) 43.9 ml/min BUN/Creatinine Ratio 10.2 (10-20) Glucose 117 H (70-99(Fasting)) mg/dl Calcium 10.3 H (8.5-10.1) mg/dl Magnesium 1.4 L (1.7-2.4) mg/dl TSH (0.300-4.500) uIu/ml SARS-CoV-2, RNA, NAAT (NEGATIVE) 06/30/22 06/30/22 Range/Units 13:30 14:47 WBC (4.8-10.8) K/ul RBC (3.93-5.22) M/uL Hgb (12.0-16.0) g/dl Hct (34.1-44.9) % MCV (80.0-100.0) fL MCH (25.0-34.0) pg MCHC (32.0-36.0) g/dL RDW Std Deviation (36.4-46.3) fL RDW Coeff of Shukri (11.5-14.5) % Plt Count (130-400) K/uL MPV (9.4-12.3) fL Immature Gran % (Auto) % Neut % (Auto) % Lymph % (Auto) % Blair % (Auto) % Eos % (Auto) % Baso % (Auto) % Neut # (Auto) (1.4-6.5) K/uL Lymph # (Auto) (1.2-3.4) K/uL Blair # (Auto) (0.24-0.82) K/uL Eos # (Auto) (0-0.50) K/uL Baso # (Auto) (0-0.2) K/uL Immature Gran # (Auto) (0.00-0.02) K/uL Sodium (136-145) mmol/L Potassium (3.5-5.1) mmol/L Chloride (98-107) mmol/L Carbon Dioxide (21-32) mmol/L Anion Gap (3-11) BUN (6-23) mg/dl Creatinine (0.6-1.2) mg/dl Est Cr Clr Drug Dosing ml/min Est GFR ( Amer) ml/min Est GFR (Non-Af Amer) ml/min BUN/Creatinine Ratio (10-20) Glucose (70-99(Fasting)) mg/dl Calcium (8.5-10.1) mg/dl Magnesium (1.7-2.4) mg/dl TSH 1.061 (0.300-4.500) uIu/ml SARS-CoV-2, RNA, NAAT NEGATIVE (NEGATIVE) Administered Medications Nicardipine HCl 25 mg/ Sodium (Chloride) 250 mls @ 50 mls/hr IV .Q5H FLOR; Protocol Stop: 07/30/22 14:44 Last Admin: 06/30/22 15:32 Dose: 5 mg/hr, 50 mls/hr Documented By: PARAM Co-signed By: THADDEUS Discontinued Medications Diphenhydramine HCl (Diphenhydramine 50 Mg/Ml Vial) 50 mg IV NOW STA Stop: 06/30/22 10:14 Last Admin: 06/30/22 10:25 Dose: 50 mg Documented By: CHRIS Hydralazine HCl (Hydralazine Hcl 20 Mg/Ml Vial) 10 mg IV NOW STA Stop: 06/30/22 12:48 Last Admin: 06/30/22 13:34 Dose: 10 mg Documented By: KALLI Prochlorperazine (Compazine) 2 mls @ 1 mls/min IV ONE ONE Stop: 06/30/22 10:14 Last Admin: 06/30/22 10:25 Dose: 1 mls/min Documented By: CHRIS Valproic Acid 500 mg/ Dextrose 55 mls @ 55 mls/hr IV NOW STA Stop: 06/30/22 13:37 Last Infusion: 06/30/22 14:54 Dose: 0 mls/hr Documented By: Admin: 06/30/22 13:51 Dose: 55 mls/hr Documented By: POOL Sodium Chloride (Nss 1000ml) 1,000 mls @ 999 mls/hr IV .Q1H1M ONE Stop: 06/30/22 13:50 Last Admin: 06/30/22 13:34 Dose: 999 mls/hr Documented By: KALLI Methylprednisolone 500 mg/ (Dextrose) 108 mls @ 108 mls/hr IV ONE STA Stop: 06/30/22 14:16 Last Admin: 06/30/22 14:53 Dose: 108 mls/hr Documented By: MANISHAF Ioversol (Optiray 300 500ml) 120 ml IV ONCE ONE Stop: 06/30/22 11:31 Last Admin: 06/30/22 11:18 Dose: 120 ml Documented By: BRBradford Ketorolac Tromethamine (Ketorolac Tromethamine 15 Mg/Ml Vial) 15 mg IV NOW ONE Stop: 06/30/22 10:14 Last Admin: 06/30/22 10:25 Dose: 15 mg Documented By: CHRIS Lorazepam (Lorazepam 2 Mg/1 Ml Vial) 1 mg IV NOW STA; Protocol Stop: 06/30/22 13:49 Last Admin: 06/30/22 14:12 Dose: 1 mg Documented By: MANISHAF Morphine Sulfate (Morphine Sulfate 10 Mg/Ml Carp/Vial) 6 mg IV NOW STA Stop: 06/30/22 11:37 Last Admin: 06/30/22 11:44 Dose: 6 mg Documented By: KALLI Morphine Sulfate (Morphine Sulfate 2 Mg/Ml Carp) 1 mg IV NOW STA Stop: 06/30/22 14:01 Last Admin: 06/30/22 14:12 Dose: 1 mg Documented By: TLF Imaging Data Radiologist's Impression: Head CTA 06/30/22 10:13 HEAD & NECK CTA HISTORY: Headache. Dizziness. TECHNIQUE: Multiaxial CT images of the head were performed both before and after the intravenous administration of contrast to evaluate the major cerebral vessels. Multiaxial CT images of the neck were also performed following the intravenous administration of contrast to evaluate the major cervical vessels. Maximum intensity projection images were also obtained. A dose lowering technique was utilized adhering to the principles of ALARA. COMPARISON: Head CT and cervical spine CT 07/17/2019. FINDINGS: Mild motion artifact. The paranasal sinuses and mastoid air cells are clear. The calvarium and skull base are intact. The ventricles and sulci are within normal limits. There is no mass, hematoma, midline shift, acute infarct. There are few patchy periventricular white matter hypodensities which are greater than expected for age. This raises the possibility of a demyelinating disease such as multiple sclerosis. Visualized intracranial internal carotid arteries, distal vertebral arteries, and basilar artery are widely patent. There is no significant stenosis, occlusion, or aneurysm seen within the bilateral ACAs, MCAs, or linen worker. The major dural venous sinuses are patent. The proximal great vessels are widely patent. There is no significant stenosis, occlusion, or dissection identified within the bilateral common carotid, internal carotid, or vertebral arteries. Heterogeneous thyroid gland again noted. Tortuous distal bilateral cervical internal carotid arteries. IMPRESSION: 1. Motion artifact. No definite acute infarct or intracranial hemorrhage. 2. A few patchy periventricular white matter hypodensities which are greater than expected for age. This raises the possibility of a demyelinating disease such as multiple sclerosis. Follow-up brain MRI recommended for further evaluation. 3. No significant stenosis, occlusion, or aneurysm within the [place]. 4. No significant stenosis, occlusion, or dissection identified within the carotid or vertebral arteries. ACT 112: Positive. There are findings on this exam that require communication between the performing entity and the patient following Patient Test Result I nformation Act ([place] Act 112) guidelines. Electronically signed by: Yazan Weir M.D. 06/30/2022 12:01 PM Neck CTA 06/30/22 10:13 HEAD & NECK CTA HISTORY: Headache. Dizziness. TECHNIQUE: Multiaxial CT images of the head were performed both before and after the intravenous administration of contrast to evaluate the major cerebral vessels. Multiaxial CT images of the neck were also performed following the intr avenous administration of contrast to evaluate the major cervical vessels. Maximum intensity projection images were also obtained. A dose lowering technique was utilized adhering to the principles of ALARA. COMPARISON: Head CT and cervical spine CT 07/17/2019. FINDINGS: Mild motion artifact. The paranasal sinuses and mastoid air cells are clear. The calvarium and skull base are intact. The ventricles and sulci are within normal limits. There is no mass, hematoma, midline shift, acute infarct. There are few patchy periventricular white matter hypodensities which are greater than expected for age. This raises the possibility of a demyelinating disease such as multiple sclerosis. Visualized intracranial internal carotid arteries, distal vertebral arteries, and basilar artery are widely patent. There is no significant stenosis, occlusion, or aneurysm seen within the bilateral ACAs, MCAs, or linen worker. The major dural venous sinuses are patent. The proximal great vessels are widely patent. There is no significant stenosis, occlusion, or dissection identified within the bilateral common carotid, internal carotid, or vertebral arteries. Heterogeneous thyroid gland again noted. Tortuous distal bilateral cervical internal carotid arteries. IMPRESSION: 1. Motion artifact. No definite acute infarct or intracranial hemorrhage. 2. A few patchy periventricular white matter hypodensities which are greater than expected for age. This raises the possibility of a demyelinating disease such as multiple sclerosis. Follow-up brain MRI recommended for further evaluation. 3. No significant stenosis, occlusion, or aneurysm within the [place]. 4. No significant stenosis, occlusion, or dissection identified within the carotid or vertebral arteries. ACT 112: Positive. There are findings on this exam that require communication between the performing entity and the patient following Patient Test Result Information Act ([place] Act 112) guidelines. Electronically signed by: Yazan Weir M.D. 06/30/2022 12:01 PM Discharge Plan Visit Data Chief Complaint: Headache Stated Complaint: MIGRAINE HEADACHE ED Provider: Ranjith Szymanski Discharge Problem: Headache, Hypertension, Arm paresthesia, left Forms Stand Alone Forms: My [facility] [place] [employer] Prescriptions Prescriptions: No Action escitalopram oxalate 20 mg tablet 20 mg PO DAILY Qty: 90 3RF lorazepam 0.5 mg tablet 0.5 mg PO DAILY PRN (Reason: anxiety) Qty: 10 0RF tacrolimus 1 mg capsule See Rx Instructions PO .COMPLEX Qty: 1 0RF Rx Instructions: Take 3 tablets AM, 2 tablets PM PO; atenolol 50 mg Tablet 50 mg PO BID sulfamethoxazole-trimethoprim 400-80 mg tablet 1 tab PO 3XWK Rx Instructions: THURSDAY//THURSDAY/THURSDAY albuterol sulfate 90 mcg/actuation HFA aerosol inhaler 1 inh INHALATION DAILY Referrals Referrals: Ronni De Souza III, MD [Physician] -
[2022-06-30 10:45] LABS: Basophils # (auto) 0.03 K/uL (0-0.2); Basophils % (auto) 0.3 %; Eosinophils # (auto) 0.16 K/uL (0-0.50); Eosinophils % (auto) 1.7 %; Hematocrit (blood only) 42.2 % (34.1-44.9); Hemoglobin 14.5 g/dl (12.0-16.0); Immature Granulocytes # (auto) 0.04 K/uL (0.00-0.02); Immature Granulocytes % (auto) 0.4 %; Lymphocytes # (auto) 0.71 K/uL (1.2-3.4); Lymphocytes % (auto) 7.7 %; Mean Corpuscular Hemoglobin 29.9 pg (25.0-34.0); Mean Corpuscular Hgb Conc 34.4 g/dL (32.0-36.0); Mean Platelet Volume 10.6 fL (9.4-12.3); Monocytes % (auto) 3.3 %; Neutrophils # (auto) 7.97 K/uL (1.4-6.5); Neutrophils % (auto) 86.6 %; Platelet Count 171 K/uL (130-400); RDW Coefficient of Variation 13.7 % (11.5-14.5); RDW Standard Deviation 43.7 fL (36.4-46.3); Red Blood Count 4.85 M/uL (3.93-5.22); White Blood Count 9.21 K/ul (4.8-10.8)
[2022-06-30 11:06] LABS: BUN Creatinine Ratio 10.2 (10-20); Calcium 10.3 mg/dl (8.5-10.1); Creatinine Clr Calc Pharmacy 47.1 ml/min; Est GFR (African American) 50.9 ml/min; Est GFR (Non-African American) 43.9 ml/min; Potassium 3.8 mmol/L (3.5-5.1)
[2022-06-30] MEDS ORDERED: OPTIRAY 300 500mL IV ONE (11:30)
[2022-06-30] MEDS ORDERED: MoRPHine SULFATE 10 MG/ML CARP/VIAL IV STA (11:36)
--- NOTE | 2022-06-30 12:03 | CT Scan Report ---
HEAD & NECK CTA HISTORY: Headache. Dizziness. TECHNIQUE: Multiaxial CT images of the head were performed both before and after the intravenous admi nistration of contrast to evaluate the major cerebral vessels. Multiaxial CT images of the neck were also performed following the intravenous administration of contrast to evaluate the major cervical ve ssels. Maximum intensity projection images were also obtained. A dose lowering technique was utilized adhering to the principles of ALARA. COMPARISON: Head CT and cervical spine CT 07/17/2019. FINDINGS: Mild motion artifact. The paranasal sinuses and mastoid air cells are clear. The calvarium and skull base are intact. The ventricles and sulci are within normal limits. There is no mass, hematoma, midli ne shift, acute infarct. There are few patchy periventricular white matter hypodensities which are gr eater than expected for age. This raises the possibility of a demyelinating disease such as multiple sclerosis. Visualized intracranial internal carotid arteries, distal vertebral arteries, and basilar artery are widely patent. There is no significant stenosis, occlusion, or aneurysm seen within the bilateral AC As, MCAs, or buffing line set up worker. The major dural venous sinuses are patent. The proximal great vessels are widely patent. There is no significant stenosis, occlusion, or disse ction identified within the bilateral common carotid, internal carotid, or vertebral arteries. Hetero geneous thyroid gland again noted. Tortuous distal bilateral cervical internal carotid arteries. IMPRESSION: 1. Motion artifact. No definite acute infarct or intracranial hemorrhage. 2. A few patchy periventricular white matter hypodensities which are greater than expected for age. T his raises the possibility of a demyelinating disease such as multiple sclerosis. Follow-up brain MRI recommended for further evaluation. 3. No significant stenosis, occlusion, or aneurysm within the [place]. 4. No significant stenosis, occlusion, or dissection identified within the carotid or vertebral arter ies. ACT 112: Positive. There are findings on this exam that require communication between the performing entity and the patient following Patient Test Result Information Act ([place] Act 112) guidelines. Electronically signed by: Yazan Weir M.D. 06/30/2022 12:01 PM
--- NOTE | 2022-06-30 12:03 | CT Scan Report ---
HEAD & NECK CTA HISTORY: Headache. Dizziness. TECHNIQUE: Multiaxial CT images of the head were performed both before and after the intravenous admi nistration of contrast to evaluate the major cerebral vessels. Multiaxial CT images of the neck were also performed following the intravenous administration of contrast to evaluate the major cervical ve ssels. Maximum intensity projection images were also obtained. A dose lowering technique was utilized adhering to the principles of ALARA. COMPARISON: Head CT and cervical spine CT 07/17/2019. FINDINGS: Mild motion artifact. The paranasal sinuses and mastoid air cells are clear. The calvarium and skull base are intact. The ventricles and sulci are within normal limits. There is no mass, hematoma, midli ne shift, acute infarct. There are few patchy periventricular white matter hypodensities which are gr eater than expected for age. This raises the possibility of a demyelinating disease such as multiple sclerosis. Visualized intracranial internal carotid arteries, distal vertebral arteries, and basilar artery are widely patent. There is no significant stenosis, occlusion, or aneurysm seen within the bilateral AC As, MCAs, or software test developer. The major dural venous sinuses are patent. The proximal great vessels are widely patent. There is no significant stenosis, occlusion, or disse ction identified within the bilateral common carotid, internal carotid, or vertebral arteries. Hetero geneous thyroid gland again noted. Tortuous distal bilateral cervical internal carotid arteries. IMPRESSION: 1. Motion artifact. No definite acute infarct or intracranial hemorrhage. 2. A few patchy periventricular white matter hypodensities which are greater than expected for age. T his raises the possibility of a demyelinating disease such as multiple sclerosis. Follow-up brain MRI recommended for further evaluation. 3. No significant stenosis, occlusion, or aneurysm within the [place]. 4. No significant stenosis, occlusion, or dissection identified within the carotid or vertebral arter ies. ACT 112: Positive. There are findings on this exam that require communication between the performing entity and the patient following Patient Test Result Information Act ([place] Act 112) guidelines. Electronically signed by: Yazan Weir M.D. 06/30/2022 12:01 PM
[2022-06-30] MEDS ORDERED: methylPREDNISolone 125 MG/2 ML VIAL IV STA (12:38)
[2022-06-30] MEDS ORDERED: VALPROATE SOD 500 MG in DEXTROSE 5% 50 ML IV STA (12:38)
[2022-06-30] MEDS ORDERED: hydrALAZINE HCL 20 MG/ML VIAL IV STA (12:47)
[2022-06-30] MEDS ORDERED: SODIUM CHLORIDE 0.9% 1000ML 1,000 ML IV ONE (12:50)
--- NOTE | 2022-06-30 13:00 | History & Physical Report ---
Date of Service June 30, 2022 Assessment & Plan (1) Headache: Plan: -Admit to medicine -Etiology unknow at this time but the differential includes but is not limited to hypertensive emergency, migraine, demyelinating disease, encephalitis, myelitis, and meningitis -Was given migraine cocktail and 6 mg IV morphine for pain -CTA of the head and neck showing results possibly concerning for demyelinating disease in the periventricular area, recommended MRI for further diagnosis -Getting STAT MRI of the brain with Contrast for further evaluation -BP currently with systolic in the 180's, will hold additional IV antihypertensives for now and try to restart her PREDATORY GAME HUNTER atenolol -PRN antiemetics -PRN pain meds -q4h neuro checks -If she continues to worsen then will reach out to ICU for transfer (2) ADHD: Plan: -See anxiety (3) Subclinical hypothyroidism: Plan: -Will get TSH with reflex free t4 if indicated (4) Kidney transplant recipient: Plan: -Cr currently at baseline -Is typically on Tacrolimus, getting tacro level and placed Nephrology consult to assist with dosing while admitted -Will continue PREDATORY GAME HUNTER prophylactic Bactrim for now (5) Anxiety: Plan: -PRN lexapro and ativan (6) Hypertension: Plan: -Noted to have systolic BP in the 200's with Diastolics in the 130's -Was unable to take PREDAT[employer] GAME HUNTER atenolol yesterday or today due to nausea and vomiting -Given 10 mg IV hydralazine in the ED, will monitor for now and try to restart PR[employer] GAME HUNTER atenlol -May need additional IV antihypertensives if BP is not well controlled (7) CKD (chronic kidney disease): Plan: -See Kidney transplant Plan The patient was discussed with Dr. Quintero at the time of admission History of Present Illness Chief Complaint: Headache Primary Care Provider: NO PCP Pamela is a 41 year old female with a PMH significant for renal transplant chronically immunocompromised, nicotine dependence, CKD, depression with anxiety, hypothyroidism, vitamin D deficiency, hypertension, iron deficiency anemia, ADHD, cephalic vein thrombosis and migraines who presented to the [facility] ED with a chief complaint of headache and dizziness. At the time of the exam the patient was lying in bed with the covers pulled over her head and he lights off. She is in acute distress from her pain and has difficulty providing history. Her father who is at bedside was able to assist with history. They state that she was Covid positive approximately one month ago. She was previously vaccinated and did not experience severe complications during her acute illness. She states that she developed a migraine, nausea, and vomiting yesterday. She had multiple episodes of nausea and vomiting yesterday, which prevented her from eating and keeping her medications down. She is experiencing severe photophobia at the time of the exam but denies other neurologic symptoms. She denies recent fevers and chills, chest pain, SOB, abdominal pain, dysuria, hematuria, and recent falls. In the ED the patient underwent CTA of the head and neck revealed possible demyelinating disease with periventricular White matter hypodensities but otherwise no acute findings. Labs were unremarkable besides a calcium of 10.3. She was given Compazine, Benadryl, and toradol without relief. She was noted to be hypertensive with systolic BP in the low 200's and diastolic BP in the 130's. She was given 10 mg IV hydralazine and Neurology was contacted. They recommended starting methylprednisone, Depacon and monitoring. The patient was then given 6 mg IV morphine for her breakthrough headache. Allergies Allergy/AdvReac Type Severity Reaction Status Date / Time tramadol Allergy Intermediate ITCHING Verified 06/23/22 16:52 Home Medications Medication Instructions Recorded Confirmed Type atenolol 50 mg tablet 50 mg PO BID 09/10/18 04/15/22 History sulfamethoxazole 400 1 tab PO 3XWK 09/10/18 04/15/22 History mg-trimethoprim 80 mg tablet tacrolimus 1 mg capsule, See Rx Instructions PO .COMPLEX #1 03/04/22 04/06/22 Rx immediate-release cap albuterol sulfate 90 mcg/actuation 1 inh inhalation DAILY 04/06/22 04/15/22 History aerosol inhaler escitalopram oxalate 20 mg tablet 20 mg PO DAILY #90 tabs 06/24/22 Rx lorazepam 0.5 mg tablet 0.5 mg PO DAILY PRN anxiety #10 06/24/22 Rx tabs Past Med/Surg History Medical History (Updated 06/30/22 @ 15:46 by Ranjith Szymanski DO) AVF (arteriovenous fistula) (~11/2004) Ligated 04/14 Concussion Depression with anxiety alcohol syndrome FHx unknown. Adopted. Possible alcohol syndrome Tobacco abuse Surgical History H/O inguinal hernia repair History of tonsillectomy and adenoidectomy Family History Other Adopted Family history unknown Social History Smoking Status: Never smoker Cigarettes Per Day: 5; Second Hand Exposure: No; Hx Alcohol Use: No Hx Substance Use: No Preferred Language: Welsh Communication Ability: Effective Border Machine Operator Required: No Beliefs That Will Affect Care: None marital status: Single Current Living Situation: Alone current occupational status: employed current occupation: [employer] Feels Safe at Home: Yes Assistive Devices: None Review of Systems Review of Systems: Denies current changes in hearing, taste, and smell, chest pain, SOB, cough, abdominal pain, diarrhea, hematemesis, melena, dysuria, hematuria, and recent falls. Physical Exam Physical Exam: Physical Exam: General: In acute distress due to headache, stated age, well-nourished, good hygiene HEENT: Limited exam as patient has severe photophobia, Normocephalic, atraumatic, no scleral icterus, pupils around round, symmetrical, and reactive to light, dry mucus membranes, trachea midline, no thyromegaly Chest/Pulm: No respiratory distress, symmetrical chest expansion, clear breath sounds throughout Cardiac: RRR, no murmurs noted Abdomen: Negative for ascites and bruising, normoactive bowel sounds, soft, non-tender to palpation throughout Musculoskeletal: Symmetrical and without signs of acute trauma, upper and lower extremities with full ROM, no atrophy, spasticity, or flaccidity Neuro: Alert and oriented to person, place, month, year, and president, patient would not cooperate with strength testing due to pain/discomfort, CN II- XII Psych: No acute distress, calm and cooperative during the exam Results & Data Results & Data ([facility]) Vital Signs (Past 12 Hours) Vital Signs Temp Pulse Pulse Resp BP BP Pulse Ox 06/30/22 12:35 80 16 196/133 H 96 06/30/22 11:32 90 16 198/119 H 98 06/30/22 10:38 06/30/22 09:17 36.8 C 88 18 206/138 H 99 O2 Del Method 06/30/22 12:35 Room Air 06/30/22 11:32 06/30/22 10:38 Room Air 06/30/22 09:17 Room Air Laboratory Results Abnormal lab results 06/30/22 06/30/22 Range/Units 10:30 10:30 Neut # (Auto) 7.97 H (1.4-6.5) K/uL Lymph # (Auto) 0.71 L (1.2-3.4) K/uL Immature Gran # (Auto) 0.04 H (0.00-0.02) K/uL Creatinine 1.47 H (0.6-1.2) mg/dl Glucose 117 H (70-99(Fasting)) mg/dl Calcium 10.3 H (8.5-10.1) mg/dl Diagnostic Findings Head CTA 06/30/22 10:13 HEAD & NECK CTA HISTORY: Headache. Dizziness. TECHNIQUE: Multiaxial CT images of the head were performed both before and after the intravenous administration of contrast to evaluate the major cerebral vessels. Multiaxial CT images of the neck were also performed following the intravenous administration of contrast to evaluate the major cervical vessels. Maximum intensity projection images were also obtained. A dose lowering technique was utilized adhering to the principles of ALARA. COMPARISON: Head CT and cervical spine CT 07/17/2019. FINDINGS: Mild motion artifact. The paranasal sinuses and mastoid air cells are clear. The calvarium and skull base are intact. The ventricles and sulci are within normal limits. There is no mass, hematoma, midline shift, acute infarct. There are few patchy periventricular white matter hypodensities which are greater than expected for age. This raises the possibility of a demyelinating disease such as multiple sclerosis. Visualized intracranial internal carotid arteries, distal vertebral arteries, and basilar artery are widely patent. There is no significant stenosis, occlusion, or aneurysm seen within the bilateral ACAs, MCAs, or envelope sealer operator. The major dural venous sinuses are patent. The proximal great vessels are widely patent. There is no significant stenosis, occlusion, or dissection identified within the bilateral common carotid, internal carotid, or vertebral arteries. Heterogeneous thyroid gland again noted. Tortuous distal bilateral cervical internal carotid arteries. IMPRESSION: 1. Motion artifact. No definite acute infarct or intracranial hemorrhage. 2. A few patchy periventricular white matter hypodensities which are greater than expected for age. This raises the possibility of a demyelinating disease such as multiple sclerosis. Follow-up brain MRI recommended for further evaluation. 3. No significant stenosis, occlusion, or aneurysm within the [place]. 4. No significant stenosis, occlusion, or dissection identified within the carotid or vertebral arteries. ACT 112: Positive. There are findings on this exam that require communication between the performing entity and the patient following Patient Test Result Information Act ([place] Act 112) guidelines. Electronically signed by: Yazan Weir M.D. 06/30/2022 12:01 PM Neck CTA 06/30/22 10:13 HEAD & NECK CTA HISTORY: Headache. Dizziness. TECHNIQUE: Multiaxial CT images of the head were performed both before and after the intravenous administration of contrast to evaluate the major cerebral vessels. Multiaxial CT images of the neck were also performed following the intravenous administration of contrast to evaluate the major cervical vessels. Maximum intensity projection images were also obtained. A dose lowering technique was utilized adhering to the principles of ALARA. COMPARISON: Head CT and cervical spine CT 07/17/2019. FINDINGS: Mild motion artifact. The paranasal sinuses and mastoid air cells are clear. The calvarium and skull base are intact. The ventricles and sulci are within normal limits. There is no mass, hematoma, midline shift, acute infarct. There are few patchy periventricular white matter hypodensities which are greater than expected for age. This raises the possibility of a demyelinating disease such as multiple sclerosis. Visualized intracranial internal carotid arteries, distal vertebral arteries, and basilar artery are widely patent. There is no significant stenosis, occlusion, or aneurysm seen within the bilateral ACAs, MCAs, or envelope sealer operator. The major dural venous sinuses are patent. The proximal great vessels are widely patent. There is no significant stenosis, occlusion, or dissection identified within the bilateral common carotid, internal carotid, or vertebral arteries. Heterogeneous thyroid gland again noted. Tortuous distal bilateral cervical internal carotid arteries. IMPRESSION: 1. Motion artifact. No definite acute infarct or intracranial hemorrhage. 2. A few patchy periventricular white matter hypodensities which are greater than expected for age. This raises the possibility of a demyelinating disease such as multiple sclerosis. Follow-up brain MRI recommended for further evaluation. 3. No significant stenosis, occlusion, or aneurysm within the [place]. 4. No significant stenosis, occlusion, or dissection identified within the carotid or vertebral arteries. ACT 112: Positive. There are findings on this exam that require communication between the performing entity and the patient following Patient Test Result Information Act ([place] Act 112) guidelines. Electronically signed by: Yazan Weir M.D. 06/30/2022 12:01 PM ECG Additional Comments: Poor data quality, interpretation may be adversely affected Normal sinus rhythm Left atrial enlargement Poor R wave progression, consider anterior IN vs. lead placement vs. LVH Abnormal ECG When compared with ECG of 20-JUL-2019 16:58, No significant change was found Confirmed by Carroll Caceres ([id number]) on 04/07/2022 6:41:44 AM Code Status & VTE Plan Code Status full code Supervising Physician Co-Signing Physician Notes Patient seen and examined, chart reviewed, case discussed with Joe Ramos PA-C and I agree with the assessment and plan as above except as otherwise noted Labs and images reviewed Pamela is an 81-year-old female with a history of renal transplant on immunosuppressants (tac w level pending), CKD, depression with anxiety, hypothyroidism, hypertension, iron deficiency, ADHD, nicotine dependence, cephalic vein thrombosis, and chronic migraines who presented with headache and dizziness and severe hypertension. Hx covid 1 month ago. Initial work-up shows demyelinating disease with periventricular white matter hypodensities. Her headache did not improve with Compazine, Benadryl, Toradol and remained hypertensive. With the methylprednisone, depacon was started. She is given morphine for breakthrough headache and transferred to the ICU for additional care. +photophobia. No leukocytosis. Cr 1.47 (~bl 1.57-1.9). No fevers, not cold or febrile. At time bedside assessment patient reports he still has a severe headache, is tired, and photophobic. Minimally engages with exam, but extremity strength to website designer and ankle dorsiflexion/plantarflexion is intact bilaterally without asymmetry, sensation soft touch is intact in hands and feet without asymmetry. Heart is regular Severe intractable migraine ? Worsened migraine versus acute demyelinating disease, CTH concerning for demyelinating/possible MS. MRI pending Received medication cocktail as above, discussed with neuro, started on Depacon/methylprednisolone No focal neurologic findings, but exam limited by patient discomfort/migraine Hypertensive urgency/emergency Blood pressure ranging from [id number] Received Toradol, Benadryl, morphine 1+6 mg, valproic acid for migraine with incomplete relief of pain Received labetalol 10 mg, hydralazine 10 mg, BP follow CTAH/N: Patchy periventricular white matter hypodensities suspicious for demyelinating disease. Follow-up MRI is pending Initially was to admit to PCU, unable to obtain adequate blood pressure control transferred to ICU on nicardipine drip with subsequent improvement in pressure PG Care Time/CCT Total # of Minutes Spent Total Time Spent with Patient: Total time spent is greater than 50% in coordination of care (as documented) at patient's floor/unit and/or counseling patient: Coding Level of Care Code 91247 Initial Inpt Care Lvl 2 Medical Decision Making Moderate Complexity Diagnoses Headache R51.9 ADHD F90.9 Subclinical hypothyroidism E03.9 Kidney transplant recipient Z94.0 Anxiety F41.9 Hypertension I10 CKD (chronic kidney disease) N18.9
[2022-06-30] MEDS ORDERED: methylPREDNISolone 500 MG in DEXTROSE 5% 100 ML IV STA (13:17)
[2022-06-30] MEDS ORDERED: LABETALOL HCL IV 5 MG/ML 20ML IV STA (13:36)
[2022-06-30] MEDS ORDERED: LORazepam 2 MG/1 ML VIAL IV STA (13:48)
[2022-06-30] MEDS ORDERED: MoRPHine SULFATE 2 MG/ML CARP IV STA (14:00)
[2022-06-30] MEDS ORDERED: PROCHLORPERAZINE 5 MG in SYRINGE 4 ML IV PRN (14:34)
[2022-06-30] MEDS ORDERED: STAT IV Infusion **Titration per Protocol STA (14:45)
[2022-06-30] MEDS: niCARdipine 25 MG in SODIUM CHLORIDE 0.9% 240 ML IV SCH ×2 (15:32→21:00)
[2022-06-30] MEDS ORDERED: LORazepam 0.5 MG TAB PO PRN (16:22)
[2022-06-30] MEDS: ACETAMINOPHEN 1,000 MG/100 ML VIAL IV PRN (16:33)
--- NOTE | 2022-06-30 17:36 | Critical Care Consultation ---
Date of Consultation June 30, 2022 Assessment & Plan (1) Hypertensive emergency: (2) Headache: (3) CKD (chronic kidney disease): (4) Cephalic vein thrombosis: (5) Dizziness: Plan Reason Critically Ill: 41-year-old female presented to the ER with headache. Patient was found to have systolic blood pressure in the 200s with diastolic in the 120s. CT head showed some demyelinating changes. Patient was sent to the ICU for blood pressure management Neuro - [facility] ICU: Negative --Headache with somnolence Likely secondary to hypertensive emergency along with migraine CT head showed patchy periventricular white matter hypodensities concerning for demyelinating disease. Follow-up MRI --Anxiety/depression/ ADHD On Lexapro at home Cardiac - -- Hypertensive emergency Presented with systolic blood pressure in the 200s and diastolic in the 120s Continue with nicardipine drip to drop systolic blood pressure around 160 and keep the drop in MAP no greater than 25% Patient on atenolol at home but unable to take because of nausea and vomiting -- Prolonged QTC Avoid QT prolonging medication Respiratory - -- History of pulmonary nodule Right lower lobe GI - -- Nausea Likely secondary to hypertensive emergency Zofran as needed RENAL - -- History of renal transplant with CKD On chronic tacrolimus, follow-up tacrolimus level Continue with Bactrim prophylaxis Creatinine at baseline, monitor BUNs/creatinine Avoid nephrotoxic medication ENDO - --Hypercalcemia Elevated PTH on 04/30 Likely primary hyperparathyroidism -- Subclinical hypothyroidism Not on any replacement therapy TSH within normal limit HEME - Monitor H&H ID - No clear source of infection -- Prophylaxis VTE: IPC GI: None Lines: Peripheral Diet: N.p.o. Plan: Continue with nicardipine drip to keep systolic blood pressure between 160-170 Titrate down as permissible as per the blood pressure MRI of the brain ordered for the periventricular hypodensities which were seen on the CAT scan. In the patient who is on tacrolimus PROMOTIONS ASSISTANT infection also in the differential. Will await the result of the MRI to decide regarding lumbar puncture I have personally spent 58 minutes of critical care time in the direct manag ement of this patient. This is a life/limb threatening event. This includes time spent evaluating patient, direct bedside care, chart review, placing orders, interpretation of diagnostic studies, discussion with consultants, patient, and family members, as well as other required patient management activities. This time is exclusive of all separately billable procedures, and teaching time and separate from and in addition to any other critical care service time. History of Present Illness Attending Physician: Hong Quintero MD History of Present Illness 41-year-old female presented to the hospital with complaints of headache nausea and vomiting Past medical history: Renal cell transplant chronically immunosuppressed on tacrolimus, CKD, depression/anxiety, hypertension, ADHD, cephalic vein thrombosis In the ER patient blood pressure was in the 200s systolic. She got hydralazine. Neurology was also consulted in the ED who recommended methylprednisolone. Pat ient was 6 mg of IV morphine along with ketorolac for the headache It was still not controlled and ICU were consulted for management I spoke with Richard Diaz and recommended to start nicardipine drip and keep systolic blood pressure between 160-170. CT head also showed some changes periventricular hypodensities. Advised to have a stat MRI done and based on the MRI decide disposition of the patient whether she needs to be kept here sent to a tertiary care center In the ICU at the time of examination patient was somnolent but she was answering all the questions. She was still complaining of headache. She was following commands. Moving all extremities. Did complain of nausea. No vomiting. Denies any fever or chills. Allergies Allergy/AdvReac Type Severity Reaction Status Date / Time tramadol Allergy Intermediate ITCHING Verified 06/23/22 16:52 Home Medications Medication Instructions Recorded Confirmed Type atenolol 50 mg tablet 50 mg PO BID 09/10/18 04/15/22 History sulfamethoxazole 400 1 tab PO 3XWK 09/10/18 04/15/22 History mg-trimethoprim 80 mg tablet tacrolimus 1 mg capsule, See Rx Instructions PO .COMPLEX #1 03/04/22 04/06/22 Rx immediate-release cap albuterol sulfate 90 mcg/actuation 1 inh inhalation DAILY 04/06/22 04/15/22 History aerosol inhaler escitalopram oxalate 20 mg tablet 20 mg PO DAILY #90 tabs 06/24/22 Rx lorazepam 0.5 mg tablet 0.5 mg PO DAILY PRN anxiety #10 06/24/22 Rx tabs Patient History Medical History (Updated 06/30/22 @ 17:22 by Mayur Cooper MD) AVF (arteriovenous fistula) (~11/2004) Ligated 04/14 Concussion Depression with anxiety alcohol syndrome FHx unknown. Adopted. Possible alcohol syndrome Tobacco abuse Surgical History H/O inguinal hernia repair History of tonsillectomy and adenoidectomy Family History Other Adopted Family history unknown Social History Smoking Status: Never smoker Cigarettes Per Day: 5; Second Hand Exposure: No; Hx Alcohol Use: No Hx Substance Use: No Preferred Language: Bahraini Communication Ability: Effective Milling General Superintendent Required: No Beliefs That Will Affect Care: None marital status: Single Current Living Situation: Alone current occupational status: employed current occupation: [employer] Feels Safe at Home: Yes Assistive Devices: None Review of Systems Review of Systems: All systems reviewed & are unremarkable except as noted in HPI & below Physical Exam Physical Exam: Constitutional: No acute distress HEENT: EOMI, PERRLA Respiratory system: Good air entry bilaterally, no wheeze, no rhonchi, no crackles CVS: S1-S2 positive, no murmurs or gallops Abdomen: Soft, nontender, nondistended, positive bowel sounds x4 Extremities: +2 pulses bilaterally radialis/ dorsalis pedis, no cyanosis, no edema Neuro: Alert oriented to self, she was a bit somnolent but easily arousable Psych: Normal mood and affect G/U: No [place] Skin: no rashes, warm and dry Lymphatic: no cervical or axillary lymphadenopathy Results & Data Results & Data ([facility]) Vital Signs (Past 12 Hours) Vital Signs Temp Pulse Pulse Pulse Resp BP BP 06/30/22 15:33 87 14 160/106 H 06/30/22 14:52 87 14 169/110 H 06/30/22 13:35 89 16 218/129 H 06/30/22 12:35 80 16 196/133 H 06/30/22 11:32 90 16 198/119 H 06/30/22 10:38 06/30/22 09:17 36.8 C 88 18 206/138 H Pulse Ox O2 Del Method 06/30/22 15:33 97 Room Air 06/30/22 14:52 97 Room Air 06/30/22 13:35 98 Room Air 06/30/22 12:35 96 Room Air 06/30/22 11:32 98 06/30/22 10:38 Room Air 06/30/22 09:17 99 Room Air Laboratory Results 06/30/22 10:30 06/30/22 10:30 Coding Level of Care Code Critical Care 1st 30-74 mins Diagnoses Hypertensive emergency I16.1 Headache R51.9 CKD (chronic kidney disease) N18.9 Cephalic vein thrombosis I82.619 Dizziness R42 Time Spent (min) 58
[2022-06-30] MEDS: ACETAMINOPHEN 325 MG TAB PO SCH ×2 (17:39→22:01)
--- NOTE | 2022-06-30 18:05 | XRay Report ---
XR chest 1V portable HISTORY: Shortness of breath. COMPARISON: Chest 06/04/2022. FINDINGS: The lungs are clear. Cardiac silhouette is normal in size. No pleural effusions. No pneumot horax. IMPRESSION: No acute process. ACT 112: Negative or not required by law. Electronically signed by: Yazan Weir M.D. 06/30/2022 6:03 PM
[2022-06-30] MEDS ORDERED: GADOBUTROL 65ML VIAL IV ONE (20:40)
[2022-06-30] MEDS: ATENOLOL 50 MG TABLET PO SCH (21:02)
--- NOTE | 2022-06-30 21:05 | Magnetic Resonance Report ---
MR brain MS wo/w con HISTORY: 41 years-old Female Headaches, possible demyelinating disease on CTA acute severe headache with dizziness and weakness. Acute blurry vision. COMPARISON: Head CT 06/30/2022 TECHNIQUE: Multiplanar multisequence MRI of the brain was obtained both with and without the use of 6 .5 cc Gadavist utilizing multiple sclerosis protocol FINDINGS: No restricted diffusion to suggest acute or subacute infarct. Midline structures are unremarkable. Th e study is motion degraded. No pathologic blooming artifact on the T2 star series. No acute intracran ial hemorrhage, midline shift, abnormal extra-axial collection, hydrocephalus or intracranial mass. C erebral venous sinuses and major arterial flow voids appear patent. Mastoid air cells and paranasal s inuses are clear. Skull, orbits and soft tissues are unremarkable. No abnormal intra-axial or extra-axial enhancement. Moderate scattered T2/FLAIR hyperintense foci not ed throughout the subcortical, deep and periventricular white matter of the cerebral hemispheres. No definitive infratentorial lesions are identified. Punctate focus of increased T2/FLAIR signal is note d within the central aspect of the upper cervical spinal cord at the level of C1-C2. Possible punctat e foci within the midbrain. IMPRESSION: 1. No acute intracranial abnormality. No acute or subacute infarct. 2. Moderate T2/FLAIR hyperintense foci throughout the white matter of the cerebral hemispheres is a n onspecific finding. Probable punctate focus within the upper cervical spinal cord. A demyelinating pr ocess such as multiple sclerosis would be the primary differential consideration. 3. No abnormal enhancement. ACT 112: Negative or not required by law. The above report was generated using voice recognition software. It may contain grammatical, syntax o r spelling errors. Electronically signed by: Poncho Araujo M.D. 06/30/2022 9:03 PM
[2022-06-30] MEDS: TACROLIMUS 1 MG CAP PO SCH (22:01)
[2022-07-01 04:21] LABS: Hematocrit (blood only) 39.5 % (34.1-44.9); Hemoglobin 13.7 g/dl (12.0-16.0); Mean Corpuscular Hemoglobin 30.2 pg (25.0-34.0); Mean Corpuscular Hgb Conc 34.7 g/dL (32.0-36.0); Mean Platelet Volume 11.4 fL (9.4-12.3); Platelet Count 181 K/uL (130-400); RDW Coefficient of Variation 13.6 % (11.5-14.5); RDW Standard Deviation 42.5 fL (36.4-46.3); Red Blood Count 4.54 M/uL (3.93-5.22)
[2022-07-01 04:47] LABS: BUN Creatinine Ratio 10.7 (10-20); Calcium 9.6 mg/dl (8.5-10.1); Creatinine Clr Calc Pharmacy 33.8 ml/min; Est GFR (Non-African American) 29.4 ml/min; Magnesium 1.4 mg/dl (1.7-2.4); Potassium 3.9 mmol/L (3.5-5.1)
[2022-07-01] MEDS: ACETAMINOPHEN 325 MG TAB PO SCH ×2 (04:54→07:45)
--- NOTE | 2022-07-01 08:11 | Critical Care Progress Note ---
Date of Service July 01, 2022 Assessment & Plan (1) Hypertensive emergency: (2) Headache: (3) CKD (chronic kidney disease): (4) Cephalic vein thrombosis: (5) Dizziness: Plan Reason Critically Ill: 41-year-old female presented to the ER with headache. Patient was found to have systolic blood pressure in the 200s with diastolic in the 120s. CT head showed some demyelinating changes. Patient was sent to the ICU for blood pressure management Neuro - [facility] ICU: Negative --Headache with somnolence Likely secondary to hypertensive emergency along with migraine CT head showed patchy periventricular white matter hypodensities concerning for demyelinating disease. MRI Brain 06/30/22: Moderate T2/FLAIR hyperintense foci throughout the white matter of the cerebral hemispheres is a nonspecific finding. Probable punctate focus within the upper cervical spinal cord. A demyelinating process such as multiple sclerosis would be the primary differential consideration. Patient is on tacrolimus which has been associated with demyelinating process in certain cases. --Anxiety/depression/ ADHD On Lexapro at home Cardiac - -- Hypertensive emergency Presented with systolic blood pressure in the 200s and diastolic in the 120s Continue with nicardipine drip to drop systolic blood pressure around 160 and keep the drop in MAP no greater than 25% in the first 24 hours Patient on atenolol at home but unable to take because of nausea and vomiting -- Prolonged QTC Avoid QT prolonging medication Respiratory - -- History of pulmonary nodule Right lower lobe GI - -- Nausea Likely secondary to hypertensive emergency Zofran as needed RENAL - --FADUMO on CKD Monitor BUNs/creatinine -- History of renal transplant with CKD Approximately 2003 On chronic tacrolimus, follow-up tacrolimus level Continue with Bactrim prophylaxis Creatinine at baseline, monitor BUNs/creatinine Avoid nephrotoxic medication ENDO - --Hypercalcemia Elevated PTH on 04/30 Likely primary hyperparathyroidism -- Subclinical hypothyroidism Not on any replacement therapy TSH within normal limit HEME - Monitor H&H ID - No clear source of infection -- Prophylaxis VTE: IPC GI: None Lines: Peripheral Diet: Cardiorenal Plan: In/out: +1.4 L, urine output not clearly measured Patient still complaining of severe headache. She did get 1300 of Tylenol so far. The only thing which works for her is IV Tylenol as per the patient. I will give her sumatriptan 50 mg and repeated in 2 hours if she is still complaining of headache. If it is still not responding then will give Tylenol 1 g. Would like to avoid NSAIDs in somebody who has history of renal transplant Continue with atenolol for patient's blood pressure. This will also help with prophylaxis for migraine headaches Patient blood pressure is fairly controlled off of nicardipine drip. It did go up to 160 when she was complaining of headache. For FADUMO, will give the patient 150 mL/h of normal saline for 1 L Patient is on tacrolimus which has been associated with demyelinating process in certain cases. Would recommend getting in touch with transplant physician as well as neurologist to get their opinion on that Case was discussed with Dr. Mckenzie Please note the above document was generated using voice recognition software. It may contain grammatical, syntax or spelling errors.Any formal questions or concerns about the content, text or information contained within the body of this dictation should be directly addressed to the provider for clarification. Admission and Anticipated Discharge Date Admission Date: June 30, 2022 Subjective Patient seen and examined at bedside. Patient is complaining of severe headache. She had had headaches in the past as well. She will go on Tylenol 650 mg at 5 AM. She got another 1 around 7:45 AM. Denies any nausea or vomiting No abdominal pain, no chest pain, no shortness of breath She has been off nicardipine drip as of evening yesterday. Review of Systems Review of Systems: All systems reviewed & are unremarkable except as noted in Subjective Physical Exam Physical Exam: Constitutional: No acute distress HEENT: EOMI, PERRLA Respiratory system: Good air entry bilaterally, no wheeze, no rhonchi, no crackles CVS: S1-S2 positive, no murmurs or gallops Abdomen: Soft, nontender, nondistended, positive bowel sounds x4 Extremities: +2 pulses bilaterally radialis/ dorsalis pedis, no cyanosis, no edema Neuro: Alert oriented to self place and time Psych: Agitated because of headache G/U: No [place] Skin: no rashes, warm and dry Lymphatic: no cervical or axillary lymphadenopathy Results & Data Results & Data ([facility]) Vital Signs (Past 12 Hours) Vital Signs Temp Pulse Pulse Resp BP Pulse Ox Pulse Ox 07/01/22 07:00 71 07/01/22 07:09 67 16 98 07/01/22 06:00 67 14 130/93 94 07/01/22 05:00 70 14 97 07/01/22 04:00 78 24 95 07/01/22 03:00 67 14 95 07/01/22 02:00 69 13 133/90 95 07/01/22 04:00 36.5 C 07/01/22 00:00 36.5 C 07/01/22 01:00 85 18 130/90 98 07/01/22 00:00 70 13 124/90 94 06/30/22 23:00 74 13 116/91 94 06/30/22 22:05 87 21 138/92 95 06/30/22 21:00 88 18 98 06/30/22 20:55 85 18 156/109 H 06/30/22 23:46 72 06/30/22 23:41 95 O2 Del Method O2 Del Method 07/01/22 07:00 07/01/22 07:09 Room Air 07/01/22 06:00 07/01/22 05:00 07/01/22 04:00 07/01/22 03:00 07/01/22 02:00 07/01/22 04:00 07/01/22 00:00 07/01/22 01:00 07/01/22 00:00 06/30/22 23:00 06/30/22 22:05 06/30/22 21:00 06/30/22 20:55 06/30/22 23:46 06/30/22 23:41 Room Air Laboratory Results 07/01/22 03:55 07/01/22 03:55 Coding Level of Care Code 78083 Subseq Hosp Care Lvl 3 Diagnoses Hypertensive emergency I16.1 Headache R51.9 CKD (chronic kidney disease) N18.9 Cephalic vein thrombosis I82.619 Dizziness R42
[2022-07-01] MEDS ORDERED: SODIUM CHLORIDE 0.9% 1000ML 1,000 ML IV SCH (08:15)
[2022-07-01] MEDS ORDERED: ALBUTEROL HFA 8 GM INHALER INH PRN (08:16)
[2022-07-01] MEDS: SUMAtriptan succinate 50 MG TAB PO PRN ×2 (08:30→10:00)
[2022-07-01] MEDS: ATENOLOL 50 MG TABLET PO SCH (08:36)
[2022-07-01] MEDS: ESCITALOPRAM OXALATE 20 MG TAB PO SCH (08:37)
[2022-07-01] MEDS: MAGNESIUM SULFATE / D5W 1 GM/100 ML BAG IV SCH ×2 (08:37→10:15)
[2022-07-01] MEDS: TACROLIMUS 1 MG CAP PO SCH ×2 (08:38→21:04)
[2022-07-01] MEDS ORDERED: ALBUTEROL HFA 8 GM INHALER INH SCH (09:00)
--- NOTE | 2022-07-01 09:08 | Hospitalist Progress Note ---
Date of Service July 01, 2022 Assessment & Plan (1) Headache: Plan: Appears to be migraine with right-side predominant throbbing pain with photophobia and some nausea. On admission, BP was very high, so hypertensive emergency was also a concern. - BP currently 170/100 - Pain and nausea control PRN -> Will see if sumatriptan helps. If not, consider alternative therapies. (2) Demyelinating changes in brain: Plan: MRI brain on 06/30 showed "Moderate T2/FLAIR hyperintense foci throughout the white matter of the cerebral hemispheres is a nonspecific finding. Probable punctate focus within the upper cervical spinal cord. A demyelinating process such as multiple sclerosis would be the primary differential consideration." - Will reach out to nephrology as these changes can be seen with tacrolimus - If needed, will reach out to neurology as well. (3) Kidney transplant recipient: Plan: Baseline Cr ~1.5 - 1.7, but has occasional high as high as 3.5 in April 2022. At that time, she did not come to [place], but note from supply chain program manager indicates she may have gone to [place] for evaluation. - Continue usual tacrolimus; level pending - Continue home prophylactic Bactrim for now - Nephrology consulted (4) ADHD: Plan: -See anxiety (5) Subclinical hypothyroidism: Plan: TSH was 1.06 this admission. - No need for repletion. (6) Anxiety: Plan: - PRN Lexapro and Ativan (7) Hypertension: Plan: Noted to have systolic BP in the 200's with Diastolics in the 130's. Was unable to take home atenolol at admission due to nausea and vomiting. - Was on nicardipine gtt -> Finished overnight on 06/30-07/01 overnight. - Continue home meds (8) CKD (chronic kidney disease): Plan: - See Kidney transplant Admission and Anticipated Discharge Date Admission Date: June 30, 2022 Subjective Still with headache today. Tylenol early and again this morning. Sumatriptan ordered as well. Patient is in enough pain that she does not really participate in much of my interview. Reports no fevers/chills, chest pain, shortness of breath. Physical Exam Constitutional: WD/WN, vitals as above + acute distress Eyes: EOM intact bilaterally; no conjunctival abnormality ENMT: external ear and nose normal, oropharynx normal Neck: trachea midline, no thyromegaly normal visual inspection Respiratory: normal respiratory effort, lungs clear to auscultation no respiratory distress Cardiovascular: RRR, no murmur, no edema Gastrointestinal (Abdomen): Inspection/Auscultation: abdomen normal to inspection; abdomen not distended Musculoskeletal: no cyanosis or clubbing, extremities motor strength 5/5 Skin: no rashes, warm and dry Neurologic: moves all extremities and awake Psychiatric: Orientation: alert, oriented to person and cooperative Results & Data Results & Data ([facility]) Vital Signs (Past 12 Hours) Vital Signs Temp Pulse Pulse Resp BP Pulse Ox Pulse Ox 07/01/22 08:05 167/106 H 07/01/22 08:05 85 20 07/01/22 08:00 77 15 96 07/01/22 07:00 64 13 94 07/01/22 07:00 140/95 07/01/22 08:00 36.5 C 07/01/22 08:00 07/01/22 07:00 71 07/01/22 07:09 67 16 98 07/01/22 06:00 67 14 130/93 94 07/01/22 05:00 70 14 97 07/01/22 04:00 78 24 95 07/01/22 03:00 67 14 95 07/01/22 02:00 69 13 133/90 95 07/01/22 04:00 36.5 C 07/01/22 00:00 36.5 C 07/01/22 01:00 85 18 130/90 98 07/01/22 00:00 70 13 124/90 94 06/30/22 23:00 74 13 116/91 94 06/30/22 22:05 87 21 138/92 95 06/30/22 23:46 72 06/30/22 23:41 95 O2 Del Method O2 Del Method 07/01/22 08:05 07/01/22 08:05 07/01/22 08:00 07/01/22 07:00 07/01/22 07:00 07/01/22 08:00 07/01/22 08:00 Room Air 07/01/22 07:00 07/01/22 07:09 Room Air 07/01/22 06:00 07/01/22 05:00 07/01/22 04:00 07/01/22 03:00 07/01/22 02:00 07/01/22 04:00 07/01/22 00:00 07/01/22 01:00 07/01/22 00:00 06/30/22 23:00 06/30/22 22:05 06/30/22 23:46 06/30/22 23:41 Room Air PG Care Time/CCT Total # of Minutes Spent Total Time Spent with Patient: Total time spent is greater than 50% in coordination of care (as documented) at patient's floor/unit and/or counseling patient: Coding Level of Care Code 35967 Subseq Hosp Care Lvl 3 Diagnoses Headache R51.9 Demyelinating changes in brain G37.9 Kidney transplant recipient Z94.0 ADHD F90.9 Subclinical hypothyroidism E03.9 Anxiety F41.9 Hypertension I10 CKD (chronic kidney disease) N18.9
[2022-07-01] MEDS ORDERED: carvediloL 12.5 MG TAB PO ONE ×2 (09:15→13:48)
--- NOTE | 2022-07-01 09:21 | Communication Note ---
Date of Service: July 01, 2022 Critical CARE addendum: Patient's blood pressure has again started to creep up. Systolic in the 200 diastolic in the 120. She did get atenolol in the morning. She was sleeping when the blood pressure was taken. So I doubt that pain is the reason why her blood pressure is on the higher side. I will restart the patient on nicardipine. Yesterday she responded well to nicardipine we were able to discontinue it in the evening. Will change atenolol to Coreg 12.5 mg twice daily given that Coreg is alpha as well as beta-gio. Dr. Espino also saw the patient. He was recommending a transfer to [facility] given the transplant history that she has as well as being on tacrolimus. Renal artery Doppler will be ordered by him. I discussed the case with Dr. Mckenzie as well. He is going to start working on transfer to [facility] Patient will stay in the ICU I have personally spent 35 minutes of critical care time in the direct management of this patient. This is a life/limb threatening event. This includes time spent evaluating patient, direct bedside care, chart review, placing orders, interpretation of diagnostic studies, discussion with consultants, patient, and family members, as well as other required patient management activities. This time is exclusive of all separately billable procedures, and teaching time and separate from and in addition to any other critical care service time. Please note the above document was generated using voice recognition software. It may contain grammatical, syntax or spelling errors. Coding Level of Care Code Critical Care 1st 30-74 mins Time Spent (min) 35
[2022-07-01] MEDS: ACETAMINOPHEN 1,000 MG/100 ML VIAL IV PRN (09:54)
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
--- NOTE | 2022-07-01 14:49 | Ultrasound Report ---
US renal transplant w dop CLINICAL HISTORY: Acute kidney injury. Hypertension. COMPARISON STUDY: Renal transplant ultrasound 04/08/2022. FINDINGS: The right lower quadrant transplant kidney measures 10.8 cm. No hydronephrosis. Mild cortic al thinning, unchanged. Normal cortical measured differentiation. Resistive indices measure up to 0.7 3. The renal artery demonstrates a peak systolic velocity of 217 cm/s. This previously measured 170 c m/s. The peak systolic velocity within the right iliac artery is 126 cm/s. IMPRESSION: 1. Slightly elevated peak systolic velocity within the right renal transplant artery measuring 217 cm /s which has progressed in the interval. This suggests borderline stenosis. 2. No hydronephrosis within the right lower quadrant renal transplant. 3. Mild cortical thinning, unchanged. ACT 112: Negative or not required by law. Electronically signed by: Yazan Weir M.D. 07/01/2022 2:47 PM
--- NOTE | 2022-07-01 15:42 | Neurology Consultation ---
Date of Consultation July 01, 2022 Assessment & Plan (1) Demyelinating changes in brain: (2) Hypertensive emergency: (3) Headache: (4) CKD (chronic kidney disease): Plan ASSESSMENT and PLAN: 1. Prolonged, intractable migraine, without aura. Impression: The patient has a long history of frequent headaches, and occasional migraine attacks, who presented with unilateral throbbing headache, nausea, photophobia, sonophobia, scalp allodynia, blurred vision, and left arm paresthesia, which is consistent with intractable migraine attack versus status migrainosus. The patient has responded well with improvement of symptoms other than residual mild headache. The patient has not been on any preventive medication for migraines but uses Tylenol frequently. Plan: The patient should be started on preventive treatment for her frequent headaches and intractable migraine attacks. For this, nortriptyline 5 mg twice a day is recommended. If the patient shows any intolerance, then we might consider alternative treatment. For abortive treatment, she will use Tylenol only, as she has chronic kidney disease. We will avoid triptans based on her risk factors. She understood that she should not use Tylenol frequently, no more than 3 days a week, to avoid analgesic rebound headache. CGRP blockers might be an option for preventive treatment in the future. Good hydration, management of hypertension, sleep hygiene are explained and recommend the patient. Follow-up with neurology clinic for headache management. 2. Brain MRI abnormalities Impression: After CT angiography of head and neck were done and showing some periventricular signal changes, brain MRI was ordered, which showed periventricular T2 hyperintense lesions. Those are nonspecific findings, which can be seen in many conditions including small vessel disease, but also can be seen in primary demyelinating disorders like MS. There is no acute lesion or c ontrast-enhancing lesion to suggest acute process. There is no clinical finding and history to suggest [place] [employer] infectious process including PML. Plan: The patient will need follow-up with neurology clinic, to investigate for underlying etiology of brain MRI abnormalities. The patient does not need additional work-up at this time. [facility] transplant team should be informed about brain MRI findings as occasionally tacrolimus might cause leukoencephalopathy. 3. Lethargy Impression: While the patient was having severe throbbing headache and significantly elevated blood pressure, she was not responding well although she reports that she was annoyed with many questions and pain then. Overall, her mental status has been improved back to her baseline since admission. Plan: Management of metabolic derangements, hypertension tension, and throbbing headache. If the patient develops additional neurological symptoms including worsening mental status, then we will reassess the patient. 4. Chronic kidney disease, status post renal transplantation, on chronic tacrolimus treatment. Impression: Based on improvement of general condition and neurological symptoms, and negative infection parameters, opportunistic [place] [employer] infection is unlikely at this time. Thank you for the consultation. History of Present Illness Reason for Consultation: Severe headache, blurred vision and left arm paresthesia. Requesting Physician: Meng Mckenzie MD Attending Physician: Meng Mckenzie MD History of Present Illness The patient is a 41-year-old female, with history of renal transplant on tacrolimus, who presented emergency department yesterday, with severe throbbing headache. She has long history of frequent headaches, which typically responds to Tylenol. She has been using Tylenol frequently, and had another severe headache attack recently, which improved after treatment. The patient began having right-sided throbbing headache 2 days ago, which caused nausea, light sensitivity, sonophobia, blurred vision, right facial hyperesthesia, scalp allodynia which was typical symptoms for her during severe migraine attacks. She was diagnosed with migraine before, without aura. This time, she also experiences right upper extremity paresthesia. She did not respond to initial treatment in emergency department, and after consulting with neurology, she received 500 mg Solu-Medrol with IV Depakote, which was partially effective. CT angiography of head and neck did not show hemodynamically significant stenosis, aneurysm, but showed some findings suggestive of periventricular hypodensity. Based on such findings, the patient had brain MRI which showed periventricular, T2 hyperintense lesions bilaterally, with undetermined underlying etiology. There is no prior brain MRI to compare with in our system. Demyelinating disorder like MS, microvascular ischemia, and medication induced demyelination were considered in differential. Apparently, the patient has been on tacrolimus since having renal transplant which raise concern for central nervous system infectious process. However, the patient has no other parameters or findings to suggest [employer] infection at this time. There was no contrast enhancement, and no typical MRI abnormality for PML. The patient has not been on any preventive medication for frequent headaches, but uses Tylenol as needed for a long time. Since yesterday, her headache has been improved mostly, as well as facial paresthesia and right arm tingling sensation. Allodynia has been improved as well. The patient denies any neurological symptoms. Her cognitive functioning has been well. She has a long history of difficult to control hypertension. On admission, her blood pressure was significantly elevated. Some of blood pressure medications have been adjusted with gradually lowering blood pressure. The patient denies history of neurological deficits to indicate multiple sclerosis, however, further evaluation and follow-up is indicated to assess primary demyelinating disorder. The patient is in agreement with outpatient follow-up. I have reviewed the patient's chart including imaging studies and visualized them personally. I have discussed the case with the patient and critical care physician. Allergies Allergy/AdvReac Type Severity Reaction Status Date / Time tramadol Allergy Intermediate ITCHING Verified 06/23/22 16:52 Home Medications Medication Instructions Recorded Confirmed Type atenolol 50 mg tablet 50 mg PO BID 09/10/18 04/15/22 History sulfamethoxazole 400 1 tab PO 3XWK 09/10/18 04/15/22 History mg-trimethoprim 80 mg tablet tacrolimus 1 mg capsule, See Rx Instructions PO .COMPLEX #1 03/04/22 04/06/22 Rx immediate-release cap albuterol sulfate 90 mcg/actuation 1 inh inhalation DAILY 04/06/22 04/15/22 History aerosol inhaler escitalopram oxalate 20 mg tablet 20 mg PO DAILY #90 tabs 06/24/22 Rx lorazepam 0.5 mg tablet 0.5 mg PO DAILY PRN anxiety #10 06/24/22 Rx tabs Patient History Medical History AVF (arteriovenous fistula) (~11/2004) Ligated 04/14 Concussion Depression with anxiety alcohol syndrome FHx unknown. Adopted. Possible alcohol syndrome Tobacco abuse Surgical History H/O inguinal hernia repair History of tonsillectomy and adenoidectomy Family History Other Adopted Family history unknown Social History Smoking Status: Light tobacco smoker Cigarettes Per Day: 5; Second Hand Exposure: Yes; Do You Dip or Chew Tobacco: No; Tobacco Cessation Education Requested by Patient: No Hx Alcohol Use: Yes Alcohol type: beer Hx Substance Use: No Preferred Language: Maori Communication Ability: Effective Cold Working Supervisor Required: No Beliefs That Will Affect Care: None marital status: Single Current Living Situation: Alone current occupational status: employed current occupation: [employer] Feels Safe at Home: Yes Safety Concerns: Feels Safe At This Time Assistive Devices: None Review of Systems Review of Systems: All systems reviewed & are unremarkable except as noted in HPI & below Physical Exam Physical Exam: General Examination: Constitutional: Well developed person in no acute distress. HENT: Normal exam with inspection. CV: Hearth rhtyhm is regular. Neck: Supple, no carotid bruits. Lungs: Non-labored and comfortable breathing. Abdomen: Soft, non-tender, non-distended. Skin: No rash or ecchymosis. Extremities: No edema or cyanosis NEUROLOGICAL EXAMINATION: Mental Status: Alert and oriented to place, person and time. Cranial Nerves: II-XII are intact. No nystagmus. Funduscopy: Normal looking optic discs. Motor: 5/5 in all extremities without asymmetry. Tone: Normal without spasticity or rigidity. Sensory: Intact grossly. Some decreased vibratory sensation in feet. Coordination: No dysmetria with FTN testing. Speech: Fluent. Comprehension is intact. Gait: Normal. No ataxia or abnormal walking pattern. Musculoskeletal: Normal muscle bulk, no atrophy. Results & Data ([facility]) Vital Signs (Past 12 Hours) Vital Signs Temp Pulse Pulse Resp BP Pulse Ox O2 Del Method 07/01/22 14:00 36.6 C 07/01/22 12:00 36.5 C 07/01/22 10:00 36.5 C 07/01/22 08:05 167/106 H 07/01/22 08:05 85 20 07/01/22 08:00 77 15 96 07/01/22 07:00 64 13 94 07/01/22 07:00 140/95 07/01/22 08:00 36.5 C 07/01/22 08:00 Room Air 07/01/22 07:00 71 07/01/22 07:09 67 16 98 Room Air 07/01/22 06:00 67 14 130/93 94 07/01/22 05:00 70 14 97 07/01/22 04:00 78 24 95 07/01/22 04:00 36.5 C Laboratory Results Laboratory Results - last 24 hr 06/30/22 06/30/22 06/30/22 14:47 16:00 18:38 WBC RBC Hgb Hct MCV MCH MCHC RDW Std Deviation RDW Coeff of Shukri Plt Count MPV Sodium Potassium Chloride Carbon Dioxide Anion Gap BUN Creatinine Est Cr Clr Drug Dosing Est GFR ( Amer) Est GFR (Non-Af Amer) BUN/Creatinine Ratio Glucose POC Glucose 132 H Calcium Magnesium TSH 1.061 Nasal Screen MRSA (PCR) Negative 07/01/22 07/01/22 03:55 03:55 WBC 8.00 RBC 4.54 Hgb 13.7 Hct 39.5 MCV 87.0 MCH 30.2 MCHC 34.7 RDW Std Deviation 42.5 RDW Coeff of Shukri 13.6 Plt Count 181 MPV 11.4 Sodium 134 L Potassium 3.9 Chloride 102 Carbon Dioxide 22 Anion Gap 10 BUN 22 Creatinine 2.05 H D Est Cr Clr Drug Dosing 33.8 Est GFR ( Amer) 34.0 Est GFR (Non-Af Amer) 29.4 BUN/Creatinine Ratio 10.7 Glucose 153 H POC Glucose Calcium 9.6 Magnesium 1.4 L TSH Nasal Screen MRSA (PCR) Diagnostic Findings Head CTA 06/30/22 10:13 HEAD & NECK CTA HISTORY: Headache. Dizziness. TECHNIQUE: Multiaxial CT images of the head were performed both before and after the intravenous administration of contrast to evaluate the major cerebral vessels. Multiaxial CT images of the neck were also performed following the intravenous administration of contrast to evaluate the major cervical vessels. Maximum intensity projection images were also obtained. A dose lowering technique was utilized adhering to the principles of ALARA. COMPARISON: Head CT and cervical spine CT 07/17/2019. FINDINGS: Mild motion artifact. The paranasal sinuses and mastoid air cells are clear. The calvarium and skull base are intact. The ventricles and sulci are within normal limits. There is no mass, hematoma, midline shift, acute infarct. There are few patchy periventricular white matter hypodensities which are greater than expected for age. This raises the possibility of a demyelinating disease such as multiple sclerosis. Visualized intracranial internal carotid arteries, distal vertebral arteries, and basilar artery are widely patent. There is no significant stenosis, occlusion, or aneurysm seen within the bilateral ACAs, MCAs, or certified control systems technician. The major dural venous sinuses are patent. The proximal great vessels are widely patent. There is no significant stenosis, occlusion, or dissection identified within the bilateral common carotid, internal carotid, or vertebral arteries. Heterogeneous thyroid gland again noted. Tortuous distal bilateral cervical internal carotid arteries. IMPRESSION: 1. Motion artifact. No definite acute infarct or intracranial hemorrhage. 2. A few patchy periventricular white matter hypodensities which are greater than expected for age. This raises the possibility of a demyelinating disease such as multiple sclerosis. Follow-up brain MRI recommended for further evaluation. 3. No significant stenosis, occlusion, or aneurysm within the [place]. 4. No significant stenosis, occlusion, or dissection identified within the carotid or vertebral arteries. ACT 112: Positive. There are findings on this exam that require communication between the performing entity and the patient following Patient Test Result In formation Act ([place] Act 112) guidelines. Electronically signed by: Yazan Weir M.D. 06/30/2022 12:01 PM Neck CTA 06/30/22 10:13 HEAD & NECK CTA HISTORY: Headache. Dizziness. TECHNIQUE: Multiaxial CT images of the head were performed both before and after the intravenous administration of contrast to evaluate the major cerebral vessels. Multiaxial CT images of the neck were also performed following the intravenous administration of contrast to evaluate the major cervical vessels. Maximum intensity projection images were also obtained. A dose lowering technique was utilized adhering to the principles of ALARA. COMPARISON: Head CT and cervical spine CT 07/17/2019. FINDINGS: Mild motion artifact. The paranasal sinuses and mastoid air cells are clear. The calvarium and skull base are intact. The ventricles and sulci are within normal limits. There is no mass, hematoma, midline shift, acute infarct. There are few patchy periventricular white matter hypodensities which are greater than expected for age. This raises the possibility of a demyelinating disease such as multiple sclerosis. Visualized intracranial internal carotid arteries, distal vertebral arteries, and basilar artery are widely patent. There is no significant stenosis, occlusion, or aneurysm seen within the bilateral ACAs, MCAs, or certified control systems technician. The major dural venous sinuses are patent. The proximal great vessels are widely patent. There is no significant stenosis, occlusion, or dissection identified within the bilateral common carotid, internal carotid, or vertebral arteries. Heterogeneous thyroid gland again noted. Tortuous distal bilateral cervical internal carotid arteries. IMPRESSION: 1. Motion artifact. No definite acute infarct or intracranial hemorrhage. 2. A few patchy periventricular white matter hypodensities which are greater than expected for age. This raises the possibility of a demyelinating disease such as multiple sclerosis. Follow-up brain MRI recommended for further evaluation. 3. No significant stenosis, occlusion, or aneurysm within the [place]. 4. No significant stenosis, occlusion, or dissection identified within the carotid or vertebral arteries. ACT 112: Positive. There are findings on this exam that require communication between the performing entity and the patient following Patient Test Result Information Act ([place] Act 112) guidelines. Electronically signed by: Yazan Weir M.D. 06/30/2022 12:01 PM Brain MRI 06/30/22 13:32 MR brain MS wo/w con HISTORY: 41 years-old Female Headaches, possible demyelinating disease on CTA acute severe headache with dizziness and weakness. Acute blurry vision. COMPARISON: Head CT 06/30/2022 TECHNIQUE: Multiplanar multisequence MRI of the brain was obtained both with and without the use of 6.5 cc Gadavist utilizing multiple sclerosis protocol FINDINGS: No restricted diffusion to suggest acute or subacute infarct. Midline structures are unremarkable. The study is motion degraded. No pathologic blooming artifact on the T2 star series. No acute intracranial hemorrhage, midline shift, abnormal extra-axial collection, hydrocephalus or intracranial mass. Cerebral venous sinuses and major arterial flow voids appear patent. Mastoid air cells and paranasal sinuses are clear. Skull, orbits and soft tissues are unremarkable. No abnormal intra-axial or extra-axial enhancement. Moderate scattered T2/FLAIR hyperintense foci noted throughout the subcortical, deep and periventricular white matter of the cerebral hemispheres. No definitive infratentorial lesions are identified. Punctate focus of increased T2/FLAIR signal is noted within the central aspect of the upper cervical spinal cord at the level of C1-C2. Possible punctate foci within the midbrain. IMPRESSION: 1. No acute intracranial abnormality. No acute or subacute infarct. 2. Moderate T2/FLAIR hyperintense foci throughout the white matter of the cerebral hemispheres is a nonspecific finding. Probable punctate focus within the upper cervical spinal cord. A demyelinating process such as multiple sclerosis would be the primary differential consideration. 3. No abnormal enhancement. ACT 112: Negative or not required by law. The above report was generated using voice recognition software. It may contain grammatical, syntax or spelling errors. Electronically signed by: Poncho Araujo M.D. 06/30/2022 9:03 PM Chest X-Ray 06/30/22 17:40 XR chest 1V portable HISTORY: Shortness of breath. COMPARISON: Chest 06/04/2022. FINDINGS: The lungs are clear. Cardiac silhouette is normal in size. No pleural effusions. No pneumothorax. IMPRESSION: No acute process. ACT 112: Negative or not required by law. Electronically signed by: Yazan Weir M.D. 06/30/2022 6:03 PM Renal Ultrasound 07/01/22 09:55 US renal transplant w dop CLINICAL HISTORY: Acute kidney injury. Hypertension. COMPARISON STUDY: Renal transplant ultrasound 04/08/2022. FINDINGS: The right lower quadrant transplant kidney measures 10.8 cm. No hydronephrosis. Mild cortical thinning, unchanged. Normal cortical measured differentiation. Resistive indices measure up to 0.73. The renal artery demonstrates a peak systolic velocity of 217 cm/s. This previously measured 170 cm/s. The peak systolic velocity within the right iliac artery is 126 cm/s. IMPRESSION: 1. Slightly elevated peak systolic velocity within the right renal transplant artery measuring 217 cm/s which has progressed in the interval. This suggests borderline stenosis. 2. No hydronephrosis within the right lower quadrant renal transplant. 3. Mild cortical thinning, unchanged. ACT 112: Negative or not required by law. Electronically signed by: Yazan Weir M.D. 07/01/2022 2:47 PM
--- NOTE | 2022-07-01 15:53 | Communication Note ---
Date of Service: July 01, 2022 Critical CARE addendum: I was able to speak with [facility] kidney transplant physician Dr. Clark. I did go over the case with him as well as finding of the MRI, hypertensive emergency and headache. He is not too concerned about the MRI finding. As per him it is okay to continue with tacrolimus. He would like more further work-up done for the recent finding of why the patient is still hypertensive which includes color Doppler of the renal arteries and reconstruction images of the kidneys. He did recommend transfer so they can do everything related to the transplant kidney imaging at that place. I discussed the case with Dr. [place], neurologist as well. He is also not worried about lesions on the MRI. As per him it could be small vessel disease, multiple sclerosis or from use of tacrolimus I discussed all the above discussion and recommendation and presented to the patient. Patient would like to stay in the hospital then being transferred. Patient [facility] transplant doctor is Dr. Antony Mcdowell, In order to speak with the transplant physician call can be placed at [phone] I have personally spent 45 minutes of critical care time in the direct management of this patient. This is a life/limb threatening event. This includes time spent evaluating patient, direct bedside care, chart review, placing orders, interpretation of diagnostic studies, discussion with consultants, patient, and family members, as well as other required patient management activities. This time is exclusive of all separately billable procedures, and teaching time and separate from and in addition to any other critical care service time. Please note the above document was generated using voice recognition software. It may contain grammatical, syntax or spelling errors. Coding Level of Care Code Critical Care nirmala addt'l 30 min
[2022-07-01] MEDS ORDERED: carvediloL 12.5 MG TAB PO SCH (21:00)
[2022-07-01] MEDS ORDERED: NORTRIPTYLINE HCL 10 MG CAP PO SCH (21:00)
[2022-07-01] MEDS: carvediloL 25 MG TAB PO SCH (21:03)
[2022-07-02] MEDS: ACETAMINOPHEN 1,000 MG/100 ML VIAL IV PRN ×2 (02:08→08:05)
[2022-07-02 06:10] LABS: Hematocrit (blood only) 36.1 % (34.1-44.9); Hemoglobin 12.3 g/dl (12.0-16.0); Mean Corpuscular Hemoglobin 30.1 pg (25.0-34.0); Mean Corpuscular Hgb Conc 34.1 g/dL (32.0-36.0); Mean Corpuscular Volume 88.3 fL (80.0-100.0); Mean Platelet Volume 11.4 fL (9.4-12.3); Platelet Count 173 K/uL (130-400); RDW Coefficient of Variation 13.9 % (11.5-14.5); Red Blood Count 4.09 M/uL (3.93-5.22); White Blood Count 9.33 K/ul (4.8-10.8)
[2022-07-02 06:42] LABS: Albumin Globulin Ratio 1.5 (0.9-2); Albumin Level 3.4 gm/dl (3.4-5.0); BUN Creatinine Ratio 12.5 (10-20); Bilirubin,Total 0.8 mg/dl (0.2-1.0); Calcium 9.7 mg/dl (8.5-10.1); Creatinine Clr Calc Pharmacy 36.1 ml/min; Est GFR (African American) 36.8 ml/min; Est GFR (Non-African American) 31.8 ml/min; Globulin 2.2 gm/dl (2.5-4.0); Magnesium 1.9 mg/dl (1.7-2.4); Potassium 3.6 mmol/L (3.5-5.1); Total Protein 5.6 gm/dl (6.0-8.3)
[2022-07-02] MEDS ORDERED: MoRPHine SULFATE 2 MG/ML CARP IV PRN (08:04)
--- NOTE | 2022-07-02 08:08 | Critical Care Progress Note ---
Date of Service July 02, 2022 Assessment & Plan (1) Hypertensive emergency: (2) Headache: (3) CKD (chronic kidney disease): (4) Cephalic vein thrombosis: (5) Dizziness: Plan Reason Critically Ill: 41-year-old female presented to the ER with headache. Patient was found to have systolic blood pressure in the 200s with diastolic in the 120s. CT head showed some demyelinating changes. 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 MRI Brain 06/30/22: Moderate T2/FLAIR hyperintense foci throughout the white matter of the cerebral hemispheres is a nonspecific finding. Probable punctate focus within the upper cervical spinal cord. A demyelinating process such as multiple sclerosis would be the primary differential consideration. Patient is on tacrolimus which has been associated with demyelinating process in certain cases. Neurology not worried about lesions on the MRI. As per him it could be small vessel disease, multiple sclerosis or from use of tacrolimus. Recommends outpatient follow up --Anxiety/depression/ ADHD On Lexapro at home Cardiac - -- Hypertensive emergency Presented with systolic blood pressure in the 200s and diastolic in the 120s S/p nicardipine drip Patient on atenolol at home but unable to take because of nausea and vomiting -- Prolonged QTC Avoid QT prolonging medication Repeat QTC 07/01/22: 469 Respiratory - -- History of pulmonary nodule Right lower lobe GI - -- Nausea --> resolved RENAL - --FADUMO on CKD Monitor BUNs/creatinine I was able to speak with [facility] kidney transplant physician Dr. Clark on 07/02/22 He is not too concerned about the MRI finding. As per him it is okay to continue with tacrolimus. -- History of renal transplant with CKD Approximately 2003 On chronic tacrolimus, follow-up tacrolimus level Continue with Bactrim prophylaxis Creatinine at baseline, monitor BUNs/creatinine Avoid nephrotoxic medication ENDO - --Hypercalcemia --> Resolved Elevated PTH on 04/30 Likely primary hyperparathyroidism -- Subclinical hypothyroidism Not on any replacement therapy TSH within normal limit HEME - Monitor H&H ID - No clear source of infection -- Prophylaxis VTE: IPC GI: None Lines: Peripheral Diet: Cardiorenal Plan: In/out: +2.3L, urine output not clearly measured QTC 469 on 07/01/2022. Will increase the nortriptyline to 10 mg twice daily. Continue with Tylenol for headache. Avoid NSAIDs. Opioids would be second line Creatinine is trending down gradually. We will give another 500 mL of 150 ml an hour of fluid Patient wants to go home today. I did explain to her with the labile blood pressure that she has it is better to stay in the hospital for observing another 24 hours If the blood pressure stays controlled in the next 6 hours, okay to transfer the patient out of the ICU Please note the above document was generated using voice recognition software. It may contain grammatical, syntax or spelling errors.Any formal questions or concerns about the content, text or information contained within the body of this dictation should be directly addressed to the provider for clarification. Admission and Anticipated Discharge Date Admission Date: June 30, 2022 Subjective Patient seen and examined at bedside. No acute distress, no adverse events overnight. Patient has been off nicardipine drip for more than 12 hours Blood pressure at the time of examination was systolic 130 with heart rate in the 70s Stated the headache is much better. She still feels heaviness in the forehead. No nausea vomiting Fair appetite Patient is asking to go home today Review of Systems Review of Systems: All systems reviewed & are unremarkable except as noted in Subjective Physical Exam Physical Exam: Constitutional: No acute distress HEENT: EOMI, PERRLA Respiratory system: Good air entry bilaterally, no wheeze, no rhonchi, no crackles CVS: S1-S2 positive, no murmurs or gallops Abdomen: Soft, nontender, nondistended, positive bowel sounds x4 Extremities: +2 pulses bilaterally radialis/ dorsalis pedis, no cyanosis, no edema Neuro: Alert oriented to self place and time Psych: Normal mood and affect G/U: No [place] Skin: no rashes, warm and dry Lymphatic: no cervical or axillary lymphadenopathy Results & Data Results & Data ([facility]) Vital Signs (Past 12 Hours) Vital Signs Temp Pulse Resp BP Pulse Ox O2 Del Method 07/02/22 07:10 67 24 97 07/02/22 07:00 60 16 07/02/22 07:00 36.6 C 72 16 131/85 97 Room Air 07/02/22 06:50 72 16 97 07/02/22 06:40 76 20 95 07/02/22 06:30 72 18 97 07/02/22 06:20 73 19 94 07/02/22 07:13 Room Air 07/02/22 07:10 Room Air 07/02/22 06:00 62 15 165/11 H 95 Room Air 07/02/22 05:00 64 16 152/95 H 95 Room Air 07/02/22 04:00 63 14 166/113 H 96 Room Air 07/02/22 03:00 67 14 163/105 H 95 Room Air 07/02/22 02:00 71 12 158/98 H 91 Room Air 07/02/22 01:00 69 13 164/92 H 91 Room Air 07/02/22 00:00 77 14 132/93 91 Room Air 07/01/22 23:00 78 16 146/96 H 91 Room Air 07/01/22 22:00 66 24 146/93 H 07/01/22 21:00 72 16 160/103 H 94 Room Air 07/01/22 20:18 36.7 C 07/01/22 20:00 69 15 179/110 H 94 Laboratory Results 07/02/22 05:38 07/02/22 05:38 Coding Level of Care Code 19420 Subseq Hosp Care Lvl 3 Diagnoses Hypertensive emergency I16.1 Headache R51.9 CKD (chronic kidney disease) N18.9 Cephalic vein thrombosis I82.619 Dizziness R42
--- NOTE | 2022-07-02 08:28 | Nephrology Progress Note ---
Date of Service July 02, 2022 Assessment & Plan (1) Acute kidney injury: Plan: * FADUMO was likely related to recent administration of IV contrast in the setting of NSAID therapy - now resolved * Urine sediment is acellular. 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 Baseline Cr 1.6 - 1.9 depending upon hydration status * Immunosuppressive regimen consists only of Tacrolimus 3mg po qAM/2mg po qPM * Await Tacrolimus level (3) Hypertensive emergency: Plan: * BP improved w/ Carvedilol therapy * If BP trends up today, will consider low dose ARB therapy * Renal US w/ doppler 06/30 revealed RAR 1.7 (likely EDWIN if > 3.5), no hydronephrosis (4) Demyelinating changes in brain: Plan: * Possibly related to HTN, Tacrolimus therapy or underlying MS * Neurology notes that these are nonspecific changes and not felt to represent PML * Nortriptyline has been started for management of migraine SALAZAR (5) Headache: Plan: * Continue w/ measures for BP control * Avoid NSAIDS due to FADUMO * Consider triptan therapy if recommended by Neurology Admission and Anticipated Discharge Date Admission Date: June 30, 2022 Review of Systems Eyes: no problem reported Respiratory: no cough and no dyspnea Cardiovascular: no chest pain Gastrointestinal: no abdominal pain, no vomiting and no diarrhea/loose stools Neurologic: + headache(s); no confusion Physical Exam Constitutional: + in distress (headache) Eyes: PERRL, conjunctivae normal, anicteric sclerae ENMT: external ear and nose normal, oropharynx normal Neck: trachea midline, no thyromegaly Respiratory: normal respiratory effort, lungs clear to auscultation Cardiovascular: RRR, no murmur, no edema Vessels: no JVD, no carotid bruit and no renal bruit (over transplant allograft) Gastrointestinal (Abdomen): normal bowel sounds, soft, nontender, no hepatosplenomegaly Neurologic: Speech / Cognition: normal speech Motor/Sensory: normal movement Cranial Nerves: PERRL Psychiatric: Affect: + depressed affect Results & Data ([facility]) Vital Signs (Past 12 Hours) Vital Signs Temp Pulse Resp BP Pulse Ox O2 Del Method 07/02/22 07:10 67 24 97 07/02/22 07:00 60 16 08/24/22 07:00 36.6 C 72 16 131/85 97 Room Air 07/02/22 06:50 72 16 97 07/02/22 06:40 76 20 95 07/02/22 06:30 72 18 97 07/02/22 06:20 73 19 94 07/02/22 07:13 Room Air 07/02/22 07:10 Room Air 07/02/22 06:00 62 15 165/11 H 95 Room Air 07/02/22 05:00 64 16 152/95 H 95 Room Air 07/02/22 04:00 63 14 166/113 H 96 Room Air 07/02/22 03:00 67 14 163/105 H 95 Room Air 07/02/22 02:00 71 12 158/98 H 91 Room Air 07/02/22 01:00 69 13 164/92 H 91 Room Air 07/02/22 00:00 77 14 132/93 91 Room Air 07/01/22 23:00 78 16 146/96 H 91 Room Air 07/01/22 22:00 66 24 146/93 H 07/01/22 21:00 72 16 160/103 H 94 Room Air Laboratory Results Laboratory Tests 06/30/22 07/02/22 07/02/22 14:47 05:38 05:38 WBC 9.33 Hgb 12.3 Hct 36.1 Plt Count 173 Sodium 137 Potassium 3.6 Chloride 106 Carbon Dioxide 26 BUN 24 H Creatinine 1.92 H Glucose 94 Tacrolimus Pending Laboratory Tests 07/02/22 07/02/22 09:52 09:52 Urine Appearance Clear Ur Specific Bishop 1.011 Urine Protein 1+ H Urine Glucose (UA) Negative Urine Blood Negative Urine RBC (Auto) 0-4 U Epithel Cells (Auto) >30 H Urine Bacteria (Auto) Negative Protein/Creatinin Ratio 1.0 H Diagnostic Findings 07/02/22 Renal US w/ duplex: Slightly elevated peak systolic velocity within the right renal transplant artery measuring 217 cm/s which has progressed in the interval. The peak systolic velocity within the right iliac artery is 126 cm/s. Ratio 1.7. This suggests borderline stenosis. No hydronephrosis within the right lower quadrant renal transplant. Mild cortical thinning, unchanged. PG Care Time/CCT Total # of Minutes Spent Total Time Spent with Patient: Total time spent is greater than 50% in coordination of care (as documented) at patient's floor/unit and/or counseling patient: Coding Level of Care Code 54320 Subseq Hosp Care Lvl 3 Diagnoses Acute kidney injury N17.9 Kidney transplant recipient Z94.0 Hypertensive emergency I16.1 Demyelinating changes in brain G37.9 Headache R51.9
[2022-07-02] MEDS ORDERED: MAGNESIUM SULFATE / D5W 1 GM/100 ML BAG IV ONE (08:30)
--- NOTE | 2022-07-02 08:35 | Electrocardiogram Report ---
Test Reason : Blood Pressure : / mmHG Vent. Rate : 066 BPM Atrial Rate : 066 BPM P-R Int : 178 ms QRS Dur : 092 ms QT Int : 448 ms P-R-T Axes : 067 056 051 degrees QTc Int : 469 ms Normal sinus rhythm Poor R wave progression, consider anterior MA vs. lead placement vs. LVH Abnormal ECG When compared with ECG of 06-APR-2022 20:32, No significant change Confirmed by Carroll Caceres ([id number]) on 07/02/2022 8:35:16 AM Referred By: REFERRED SELF Confirmed By:Carroll Caceres
[2022-07-02] MEDS: ESCITALOPRAM OXALATE 20 MG TAB PO SCH (08:42)
[2022-07-02] MEDS: NORTRIPTYLINE HCL 10 MG CAP PO SCH ×2 (08:42→20:07)
[2022-07-02] MEDS ORDERED: SULFA/TRIMETH 400/80MG TAB PO SCH (09:00)
[2022-07-02] MEDS: carvediloL 25 MG TAB PO SCH ×2 (09:47→20:07)
[2022-07-02] MEDS: TACROLIMUS 1 MG CAP PO SCH ×2 (09:49→20:07)
[2022-07-02] MEDS ORDERED: hydrALAZINE HCL 20 MG/ML VIAL IV PRN (10:00)
[2022-07-02] MEDS ORDERED: SODIUM CHLORIDE 0.9% 500 ML IV ONE (10:00)
[2022-07-02 10:23] LABS: Appearance Urine Clear (Clear); Bacteria Urine Automated Negative (Negative); Bilirubin Urine Negative (Negative); Blood Urine Negative (Negative); Cast Urine Automated 0 /lpf (0-5); Color Urine Yellow; Epithelial Cell Urine Auto >30 /lpf (0-5); Glucose Urine UA Negative (Negative); Ketones Urine Negative (Negative); Leukocyte Esterase Urine Negative (Negative); Nitrite Urine Negative (Negative); Protein Urine 1+ (Negative); RBC Urine Automated 0-4 /hpf (0-4); Specific Gravity Urine 1.011 (1.000-1.030); Urobilinogen Urine Negative (Negative)
[2022-07-02 10:52] LABS: Total Protein Urine Random 41.8 mg/dl (0-11.9)
[2022-07-02 11:08] LABS: Amphetamines+Metham, Urine Neg (Neg); Barbiturates, Urine Neg (Neg); Benzodiazepine, Urine Neg (Neg); Cocaine, Urine Neg (Neg); MDMA (Ecstacy), Urine Neg (Neg); Methadone, Urine Neg (Neg); Opiate, Urine Pos (Neg); Phencyclidine, Urine Neg (Neg)
--- NOTE | 2022-07-02 12:52 | Hospitalist Progress Note ---
Date of Service July 02, 2022 Assessment & Plan (1) Kidney transplant recipient: Plan: Baseline Cr ~1.5 - 1.7, but has occasional high as high as 3.5 in April 2022. At that time, she went to [facility] and was hospitalized there for a few days per patient. - Continue usual tacrolimus; level pending - Continue home prophylactic Bactrim for now - Nephrology consulted - Appreciate recs; giving some gentle IV fluids. Renal u/s with good slightly increased velocities, but no acute concerns. (2) Hypertension: Plan: Noted to have systolic BP in the 200's with diastolics in the 130's. Was unable to take home atenolol at admission due to nausea and vomiting. - Was on nicardipine gtt -> Finished overnight on 06/30-07/01 overnight. - Adjusted atenolol to carvedilol. Presently BP is 130/85. (3) Headache: Plan: Appears to be migraine with right-side predominant throbbing pain with photophobia and some nausea. On admission, BP was very high, so hypertensive emergency was also a concern. - Pain and nausea control PRN -> Using Tylenol PRN and low-dose morphine also by ICU provider. - Started on nortriptyline for migraine ppx per neurology. (4) Demyelinating changes in brain: Plan: MRI brain on 06/30 showed "Moderate T2/FLAIR hyperintense foci throughout the white matter of the cerebral hemispheres is a nonspecific finding. Probable punctate focus within the upper cervical spinal cord. A demyelinating process such as multiple sclerosis would be the primary differential consideration." - Seen by neurology and also discussed with her home dinkey engine firer by ICU attending. Do not think this is PRES or PML. - Outpatient follow-up (5) ADHD: Plan: -See anxiety (6) Subclinical hypothyroidism: Plan: TSH was 1.06 this admission. - No need for repletion. (7) Anxiety: Plan: - PRN Lexapro and Ativan (8) CKD (chronic kidney disease): Plan: - See Kidney transplant Admission and Anticipated Discharge Date Admission Date: June 30, 2022 Subjective Doing better today. Mild headache, but largely resolved. Feeling well otherwise. Reports no fevers/chills, chest pain, shortness of breath, abdominal pain, nausea, or vomiting. Physical Exam Constitutional: WD/WN, vitals as above + acute distress Eyes: EOM intact bilaterally; no conjunctival abnormality ENMT: external ear and nose normal, oropharynx normal Neck: trachea midline, no thyromegaly normal visual inspection Respiratory: normal respiratory effort, lungs clear to auscultation no respiratory distress Cardiovascular: RRR, no murmur, no edema Gastrointestinal (Abdomen): Inspection/Auscultation: abdomen normal to inspection; abdomen not distended Musculoskeletal: no cyanosis or clubbing, extremities motor strength 5/5 Skin: no rashes, warm and dry Neurologic: moves all extremities and awake Psychiatric: Orientation: alert, oriented to person and cooperative Results & Data Results & Data ([facility]) Vital Signs (Past 12 Hours) Vital Signs Temp Pulse Resp BP Pulse Ox O2 Del Method 07/02/22 07:10 67 24 97 07/02/22 07:00 60 16 07/02/22 07:00 36.6 C 72 16 131/85 97 Room Air 07/02/22 06:50 72 16 97 07/02/22 06:40 76 20 95 07/02/22 06:30 72 18 97 07/02/22 06:20 73 19 94 07/02/22 07:13 Room Air 07/02/22 07:10 Room Air 07/02/22 06:00 62 15 165/11 H 95 Room Air 07/02/22 05:00 64 16 152/95 H 95 Room Air 07/02/22 04:00 63 14 166/113 H 96 Room Air 07/02/22 03:00 67 14 163/105 H 95 Room Air 07/02/22 02:00 71 12 158/98 H 91 Room Air 07/02/22 01:00 69 13 164/92 H 91 Room Air PG Care Time/CCT Total # of Minutes Spent Total Time Spent with Patient: Total time spent is greater than 50% in coordination of care (as documented) at patient's floor/unit and/or counseling patient: Coding Level of Care Code 47286 Subseq Hosp Care Lvl 3 Diagnoses Kidney transplant recipient Z94.0 Hypertension I10 Headache R51.9 Demyelinating changes in brain G37.9 ADHD F90.9 Subclinical hypothyroidism E03.9 Anxiety F41.9 CKD (chronic kidney disease) N18.9
--- NOTE | 2022-07-02 15:21 | Neurology Progress Note ---
Date of Service July 02, 2022 Assessment & Plan (1) Demyelinating changes in brain: (2) Hypertensive emergency: (3) Headache: (4) CKD (chronic kidney disease): Plan ASSESSMENT and PLAN: 1. Prolonged, intractable migraine, without aura. Impression: The patient has a long history of frequent headaches, and occasional migraine attacks, who presented with unilateral throbbing headache, nausea, photophobia, sonophobia, scalp allodynia, blurred vision, and left arm paresthesia, which is consistent with intractable migraine attack versus status migrainosus. The patient has responded well to treatment with improvement of symptoms. The patient has not been on any preventive medication for migraines but uses Tylenol frequently which raised concern for analgesic rebound headaches. Started on Nortriptilline and tolerates well. Plan: The patient should be started on preventive treatment for her frequent headaches and intractable migraine attacks. Continue on nortriptyline 5 mg tw ice a day is recommended. For abortive treatment, she will use Tylenol only, as she has chronic kidney disease. We will avoid triptans based on her risk factors. She understood that she should not use Tylenol frequently, no more than 3 days a week, to avoid analgesic rebound headache. CGRP blockers might be an option for abortive treatment in the future. Good hydration, management of hypertension, sleep hygiene are explained and recommend the patient. Neurologically stable to discharge. Follow-up with neurology clinic for headache management. We will sign off. 2. Brain MRI abnormalities Impression: After CT angiography of head and neck were done and showing some periventricular signal changes, brain MRI was ordered, which showed periventricular T2 hyperintense lesions. Those are nonspecific findings, which can be seen in many conditions including small vessel disease, but also can be seen in primary demyelinating disorders like MS. There is no acute lesion or contrast-enhancing lesion to suggest acute process. There is no clinical finding and history to suggest MEDICAL OFFICE ASST infectious process including PML or PRES. Plan: The patient will need follow-up with neurology clinic, to investigate for underlying etiology of brain MRI abnormalities. The patient does not need additional work-up at this time. [facility] transplant team was informed about brain MRI findings as occasionally tacrolimus might cause leukoencephalopathy. 3. Lethargy Impression: While the patient was having severe throbbing headache and significantly elevated blood pressure, she was not responding well although she reports that she was annoyed with many questions and pain then. Overall, her mental status has been improved back to her baseline since admission. Plan: Management of metabolic derangements, and hypertension. 4. Chronic kidney disease, status post renal transplantation, on chronic tacrolimus treatment. Impression: Based on improvement of general condition and neurological symptoms, and negative infection parameters, opportunistic MEDICAL OFFICE ASST infection is unlikely at this time. Kidney function has been improving. Admission and Anticipated Discharge Date Admission Date: June 30, 2022 Subjective Doing better today. No headache currently. Feeling well. Reports no fev ers/chills, chest pain, shortness of breath, abdominal pain, nausea, or vomiting. No new neurological sxs. Review of Systems Review of Systems: All systems reviewed & are unremarkable except as noted in HPI & below Physical Exam Physical Exam: General Examination: Constitutional: Well developed person in no acute distress. HENT: Normal exam with inspection. CV: Hearth rhthhm is regular. Neck: Supple, no carotid bruits. Lungs: Non-labored and comfortable breathing. Abdomen: Soft, non-tender, non-distended. Skin: No rash or ecchymosis. Extremities: No edema or cyanosis NEUROLOGICAL EXAMINATION: Mental Status: Alert and oriented to place, person and time. Cranial Nerves: II-XII are intact. No nystagmus. Funduscopy: Normal looking optic discs. Motor: 5/5 in all extremities without asymmetry. Tone: Normal without spasticity or rigidity. Sensory: Intact to all sensory modalities other than decreased vibratory sensation in feet. Coordination: No dysmetria with FTN testing. Speech: Fluent. Comprehension is intact. Gait: Not assessed Musculoskeletal: Normal muscle bulk, no atrophy. Results & Data ([facility]) Vital Signs (Past 12 Hours) Vital Signs Temp Pulse Resp BP Pulse Ox O2 Del Method 07/02/22 13:00 75 17 94 Room Air 07/02/22 13:00 136/96 07/02/22 12:06 83 23 07/02/22 11:00 58 L 19 07/02/22 11:00 157/101 H 07/02/22 10:42 64 7 L 07/02/22 10:42 162/96 H 07/02/22 10:00 63 18 07/02/22 10:00 163/107 H 07/02/22 09:46 180/105 H 07/02/22 09:32 82 L 07/02/22 09:00 72 13 95 07/02/22 09:00 149/112 H 07/02/22 08:03 70 11 L 07/02/22 08:03 185/114 H 07/02/22 08:00 70 16 07/02/22 07:10 67 24 97 07/02/22 07:00 60 16 07/02/22 07:00 36.6 C 72 16 131/85 97 Room Air 07/02/22 06:50 72 16 97 07/02/22 06:40 76 20 95 07/02/22 06:30 72 18 97 07/02/22 06:20 73 19 94 07/02/22 07:13 Room Air 07/02/22 07:10 Room Air 07/02/22 06:00 62 15 165/11 H 95 Room Air 07/02/22 05:00 64 16 152/95 H 95 Room Air 07/02/22 04:00 63 14 166/113 H 96 Room Air
--- NOTE | 2022-07-02 16:02 | Nephrology Progress Note ---
Date of Service July 02, 2022 Assessment & Plan (1) Hypertension: Plan: Blood pressure today remains 150 - 180 mm Hg. Renal artery doppler revealed renal artery to iliac artery ratio of 1.7. Will start low dose ARB therapy and monitor response. Will avoid CCB therapy due to interaction w/ CNI Admission and Anticipated Discharge Date Admission Date: June 30, 2022 Results & Data ([facility]) Vital Signs (Past 12 Hours) Vital Signs Temp Pulse Pulse Resp BP BP Pulse Ox 07/02/22 15:32 36.8 C 66 17 150/99 H 98 07/02/22 13:00 75 17 94 07/02/22 13:00 136/96 07/02/22 12:06 83 23 07/02/22 11:00 58 L 19 07/02/22 11:00 157/101 H 07/02/22 10:42 64 7 L 07/02/22 10:42 162/96 H 07/02/22 10:00 63 18 07/02/22 10:00 163/107 H 07/02/22 09:46 180/105 H 07/02/22 09:32 82 L 07/02/22 09:00 72 13 95 07/02/22 09:00 149/112 H 07/02/22 08:03 70 11 L 07/02/22 08:03 185/114 H 07/02/22 08:00 70 16 07/02/22 07:10 67 24 97 07/02/22 07:00 60 16 07/02/22 07:00 36.6 C 72 16 131/85 97 07/02/22 06:50 72 16 97 07/02/22 06:40 76 20 95 07/02/22 06:30 72 18 97 07/02/22 06:20 73 19 94 07/02/22 07:13 07/02/22 07:10 07/02/22 06:00 62 15 165/11 H 95 07/02/22 05:00 64 16 152/95 H 95 07/02/22 04:00 63 14 166/113 H 96 O2 Del Method 07/02/22 15:32 Room Air 07/02/22 13:00 Room Air 07/02/22 13:00 07/02/22 12:06 07/02/22 11:00 07/02/22 11:00 07/02/22 10:42 07/02/22 10:42 07/02/22 10:00 07/02/22 10:00 07/02/22 09:46 07/02/22 09:32 07/02/22 09:00 07/02/22 09:00 07/02/22 08:03 07/02/22 08:03 07/02/22 08:00 07/02/22 07:10 07/02/22 07:00 07/02/22 07:00 Room Air 07/02/22 06:50 07/02/22 06:40 07/02/22 06:30 07/02/22 06:20 07/02/22 07:13 Room Air 07/02/22 07:10 Room Air 07/02/22 06:00 Room Air 07/02/22 05:00 Room Air 07/02/22 04:00 Room Air Coding Level of Care Code None Diagnoses Hypertension I10
[2022-07-02] MEDS: LOSARTAN POTASSIUM 25 MG TAB PO SCH (17:10)
[2022-07-03 04:10] LABS: Hematocrit (blood only) 36.3 % (34.1-44.9); Hemoglobin 12.3 g/dl (12.0-16.0); Mean Corpuscular Hemoglobin 30.1 pg (25.0-34.0); Mean Corpuscular Hgb Conc 33.9 g/dL (32.0-36.0); Mean Platelet Volume 10.8 fL (9.4-12.3); Platelet Count 166 K/uL (130-400); RDW Coefficient of Variation 13.8 % (11.5-14.5); RDW Standard Deviation 44.9 fL (36.4-46.3); Red Blood Count 4.08 M/uL (3.93-5.22); White Blood Count 5.63 K/ul (4.8-10.8)
[2022-07-03 04:30] LABS: BUN Creatinine Ratio 12.4 (10-20); Calcium 9.3 mg/dl (8.5-10.1); Creatinine Clr Calc Pharmacy 39.2 ml/min; Est GFR (African American) 40.6 ml/min; Est GFR (Non-African American) 35.1 ml/min; Magnesium 1.6 mg/dl (1.7-2.4); Potassium 3.6 mmol/L (3.5-5.1)
[2022-07-03] MEDS: ESCITALOPRAM OXALATE 20 MG TAB PO SCH (08:28)
[2022-07-03] MEDS: LOSARTAN POTASSIUM 25 MG TAB PO SCH (08:28)
[2022-07-03] MEDS: NORTRIPTYLINE HCL 10 MG CAP PO SCH (08:28)
--- NOTE | 2022-07-03 08:28 | Nephrology Progress Note ---
Date of Service July 03, 2022 Assessment & Plan (1) Hypertension: Plan: * BP improved following addition of ARB therapy * Reviewed side effects/teratogenicity of ARB therapy with patient this morning. Cautioned against use if is planned * Renal artery doppler 06/30 revealed renal artery to iliac artery ratio of 1.7 (<3.5). Kidney function is unchanged while on ARB therapy * Continue Losartan and Carvedilol * If discharge is anticipated, please have patient follow up in my office in 2 weeks. 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. Baseline Cr 1.6 - 1.9 depending upon hydration status * Immunosuppressive regimen consists only of Tacrolimus 3mg po qAM/2mg po qPM * Await Tacrolimus level (3) Demyelinating changes in brain: Plan: * Possibly related to HTN, Tacrolimus therapy or underlying MS * Neurology notes that these are nonspecific changes and not felt to represent PML (4) Headache: Plan: * Nortriptyline has been started for management of migraine SALAZAR as per Neurology Admission and Anticipated Discharge Date Admission Date: June 30, 2022 Subjective Miss Will was evaluated in her hospital room this morning. She reports that her SALAZAR has resolved. She is tolerating her medication without side effect Review of Systems Eyes: no problem reported Respiratory: no cough and no dyspnea Cardiovascular: no chest pain Gastrointestinal: no abdominal pain, no vomiting and no diarrhea/loose stools Neurologic: + headache(s); no confusion Physical Exam Constitutional: + in distress (headache) Eyes: PERRL, conjunctivae normal, anicteric sclerae ENMT: external ear and nose normal, oropharynx normal Neck: trachea midline, no thyromegaly Respiratory: normal respiratory effort, lungs clear to auscultation Cardiovascular: RRR, no murmur, no edema Vessels: no JVD, no carotid bruit and no renal bruit (over transplant allograft) Gastrointestinal (Abdomen): normal bowel sounds, soft, nontender, no hepatosplenomegaly Neurologic: Speech / Cognition: normal speech Motor/Sensory: normal movement Cranial Nerves: PERRL Psychiatric: Affect: + depressed affect Results & Data (MN) Vital Signs (Past 12 Hours) Vital Signs Temp Pulse Resp BP Pulse Ox O2 Del Method 07/03/22 04:00 36.6 C 62 18 170/118 H 96 Room Air 07/03/22 00:00 36.7 C 64 16 148/105 H 97 Room Air Laboratory Results Laboratory Tests 07/03/22 07/03/22 03:51 03:51 WBC 5.63 Hgb 12.3 Hct 36.3 Plt Count 166 Sodium 137 Potassium 3.6 Chloride 105 Carbon Dioxide 27 BUN 22 Creatinine 1.77 H Calcium 9.3 PG Care Time/CCT Total # of Minutes Spent Total Time Spent with Patient: Total time spent is greater than 50% in coordination of care (as documented) at patient's floor/unit and/or counseling patient: Coding Level of Care Code 03125 Subseq Hosp Care Lvl 3 Diagnoses Hypertension I10 History of kidney transplant Z94.0 Demyelinating changes in brain G37.9 Headache R51.9
[2022-07-03] MEDS: TACROLIMUS 1 MG CAP PO SCH (08:29)
[2022-07-03] MEDS: carvediloL 25 MG TAB PO SCH (08:29)
[2022-07-03 08:37] VITALS: BP 140/86; O2SAT 97
[2022-07-03 08:38] VITALS: TEMP 98.1
[2022-07-03] MEDS ORDERED: SULFA/TRIMETH 400/80MG TAB PO SCH (09:00)
[2022-07-03 09:13] VITALS: PULSE 62
--- NOTE | 2022-07-03 18:28 | Discharge Summary ---
Date of Service July 03, 2022 Admission HPI Per Admitting Provider Pamela is a 41 year old female with a PMH significant for renal transplant chronically immunocompromised, nicotine dependence, CKD, depression with anxiety, hypothyroidism, vitamin D deficiency, hypertension, iron deficiency anemia, ADHD, cephalic vein thrombosis and migraines who presented to the [facility] ED with a chief complaint of headache and dizziness. At the time of the exam the patient was lying in bed with the covers pulled over her head and he lights off. She is in acute distress from her pain and has difficulty providing history. Her father who is at bedside was able to assist with history. They state that she was Covid positive approximately one month ago. She was previously vaccinated and did not experience severe complications during her acute illness. She states that she developed a migraine, nausea, and vomiting yesterday. She had multiple episodes of nausea and vomiting yesterday, which prevented her from eating and keeping her medications down. She is experiencing severe photophobia at the time of the exam but denies other neurologic symptoms. She denies recent fevers and chills, chest pain, SOB, abdominal pain, dysuria, hematuria, and recent falls. In the ED the patient underwent CTA of the head and neck revealed possible demyelinating disease with periventricular White matter hypodensities but otherwise no acute findings. Labs were unremarkable besides a calcium of 10.3. She was given Compazine, Benadryl, and toradol without relief. She was noted to be hypertensive with systolic BP in the low 200's and diastolic BP in the 130's. She was given 10 mg IV hydralazine and Neurology was contacted. They recommended starting methylprednisone, Depacon and monitoring. The patient was then given 6 mg IV morphine for her breakthrough headache. Principal Diagnosis Hypertension Likely migraine headache Discharge Exam Constitutional WD/WN, vitals as above Eyes EOM intact bilaterally; no conjunctival abnormality ENMT external ear and nose normal, oropharynx normal Neck trachea midline, no thyromegaly normal visual inspection Respiratory normal respiratory effort, lungs clear to auscultation no respiratory distress Cardiovascular RRR, no murmur, no edema Gastrointestinal (Abdomen) Inspection/Auscultation: abdomen normal to inspection; abdomen not distended Musculoskeletal no cyanosis or clubbing, extremities motor strength 5/5 Skin no rashes, warm and dry Neurologic moves all extremities and awake Psychiatric Orientation: alert, oriented to person and cooperative Discharge Data Allergies Allergy/AdvReac Type Severity Reaction Status Date / Time tramadol Allergy Intermediate ITCHING Verified 06/23/22 16:52 Consultations 06/30/22 12:49 ED Decision to Admit Stat 06/30/22 13:57 Consult Neurology Routine 06/30/22 14:51 Consult Grape Cutter Routine 06/30/22 16:22 Consult Nephrology Routine Ordered Studies 06/30/22 10:13 CT angio head wo/w Stat CT angio neck with con Stat 06/30/22 13:32 MRI Brain [MR brain MS wo/w con] Stat 07/01/22 09:55 US renal transplant w dop Urgent Hospital Course (1) Kidney transplant recipient: Baseline Cr ~1.5 - 1.7, but has occasional high as high as 3.5 in April 2022. At that time, she went to [facility] and was hospitalized there for a few days per patient. - Continue usual tacrolimus; level pending - Continue home prophylactic Bactrim for now - Nephrology consulted - Appreciate recs; giving some gentle IV fluids. Renal u/s with good slightly increased velocities, but no acute concerns. By discharge, Cr was down to 1.77. - 2 week f/u with nephrology. (2) Hypertension: Noted to have systolic BP in the 200's with diastolics in the 130's. Was unable to take home atenolol at admission due to nausea and vomiting. - Was on nicardipine gtt -> Finished overnight on 06/30-07/01 overnight. - Adjusted atenolol to carvedilol. Added losartan 25 mg PO QAM. - Presently BP is 140/85 on discharge. (3) Headache: Appears to be migraine with right-side predominant throbbing pain with photophobia and some nausea. On admission, BP was very high, so hypertensive emergency was also a concern. - Pain and nausea control PRN -> Using Tylenol PRN and low-dose morphine also by ICU provider. - Started on nortriptyline for migraine ppx per neurology. Discharged on same. (4) Demyelinating changes in brain: MRI brain on 06/30 showed "Moderate T2/FLAIR hyperintense foci throughout the white matter of the cerebral hemispheres is a nonspecific finding. Probable punctate focus within the upper cervical spinal cord. A demyelinating process such as multiple sclerosis would be the primary differential consideration." - Seen by neurology and also discussed with her home tying machine operator lumber by ICU attending. Do not think this is PRES or PML. - Outpatient follow-up (5) ADHD: -See anxiety (6) Subclinical hypothyroidism: TSH was 1.06 this admission. - No need for repletion. (7) Anxiety: - PRN Lexapro and Ativan (8) CKD (chronic kidney disease): - See Kidney transplant Total Time Total Time Spent Total Time Spent (In Minutes): 35 Discharge Plan Discharge Items Patient Disposition: Home - Self-Care Reason For Visit: HEADACHES Discharge Diagnosis: High blood pressure, migraine headache Activity: Resume your previous activity Non-emergency contact: Primary Care Provider and Fixed Assets Accountant Call non-emergency contact if: your symptoms worsen Follow-up/Referrals: Sai Espino MD [Physician] - (Please see Dr. Espino in 2 weeks.) Stefany Azevedo PA-C [Primary Care Provider] - 07/08/22 3:00 pm Diet: Dialysis Renal Addtl Attending Provider Instructions: Ms. Will, Hugh were admitted to the hospital with a headache and high blood pressure. We were worried the headache was because of the high blood pressure and possibly causing changes in the brain. We had you undergo an MRI that did not show any damage to the brain. Luckily with some treatment, the headache resolved. Your blood pressure required IV medication for some time, but is now nicely controlled on the two medications. Finally, to help prevent headaches, we have started a new medication that helps keep you from getting migraines. Please see Dr. Espino in 2 weeks. I wish you the best, and hope you continue to feel well! Meng Mckenzie Pending Studies at Discharge: Yes Studies:: Some testing for reasons for high blood pressure. Please follow up with Dr. Espino on these results when you see him next. Stand-Alone Forms: My [employer], Smoking Cessation Medications and DC Order Prescriptions: New carvedilol 25 mg Tablet 25 mg PO Q12H Qty: 60 0RF losartan 25 mg Tablet 25 mg PO QAM Qty: 30 0RF nortriptyline 10 mg Capsule 10 mg PO Q12H Qty: 60 0RF Continued escitalopram oxalate 20 mg tablet 20 mg PO DAILY Qty: 90 3RF lorazepam 0.5 mg tablet 0.5 mg PO DAILY PRN (Reason: anxiety) Qty: 10 0RF tacrolimus 1 mg capsule See Rx Instructions PO .COMPLEX Qty: 1 0RF Rx Instructions: Take 3 tablets AM, 2 tablets PM PO; sulfamethoxazole-trimethoprim 400-80 mg tablet 1 tab PO 3XWK Rx Instructions: THURSDAY//THURSDAY/THURSDAY albuterol sulfate 90 mcg/actuation HFA aerosol inhaler 1 inh INHALATION DAILY Discontinued atenolol 50 mg Tablet 50 mg PO BID Discharge Orders: Discharge Order (Routine); Ordered 07/03/22 Ordered By: Meng Mckenzie Admission Data Admit Date/Time: 06/30/22 13:28 Attending Provider: Meng Mckenzie Admit Provider: Hong Quintero Primary Care Provider: Stefany Azevedo Other Providers: Hong Quintero ; Negro Negron ; Mayur Cooper ; Sai Espino Other Interventions: Discharge Summary Assessment (RN) Last Done: 07/03/22 09:06 Coding Level of Care Code D/C DAY MANAGEMENT >30 MINS Diagnoses Kidney transplant recipient Z94.0 Hypertension I10 Headache R51.9 Demyelinating changes in brain G37.9 ADHD F90.9 Subclinical hypothyroidism E03.9 Anxiety F41.9 CKD (chronic kidney disease) N18.9
[2022-07-04] MEDS ORDERED: SULFA/TRIMETH 400/80MG TAB PO SCH (09:00)
[2022-07-04 10:56] LABS: Codeine Urine NEGATIVE ng/mL (<50); Hydrocodone Urine NEGATIVE ng/mL (<50); Hydromor Urine NEGATIVE ng/mL (<50); Morphine Urine 185 ng/mL (<50); Norhydrocodone Conf Ur NEGATIVE ng/mL (<50); Noroxycodone Urine NEGATIVE ng/mL (<50); Oxycodone Urine NEGATIVE ng/mL (<50); Oxymorph Urine NEGATIVE ng/mL (<50)
[2022-07-07 12:41] LABS: Metanephrine, Plasma 59 pg/mL (<=57); Normetanephrine Plasma 105 pg/mL (<=148); Total Metanephrine Plasma 164 pg/mL (<=205)
== END 2022-07-03 10:30 | disposition home or self-care (01) | DRG 305 ==
LOC: ED 09:15 → 1E 13:28 → SUATTDRO 13:28 → 1E 15:52
DX: E03.9 Hypothyroidism, unspecified; G35 Multiple sclerosis; N18.9 Chronic kidney disease, unspecified; D84.821 Immunodeficiency due to drugs; I16.1 Hypertensive emergency; Z94.0 Kidney transplant status; T50.8X5A Adverse effect of diagnostic agents, initial encounter; Z79.899 Other long term (current) drug therapy; Y92.009 Unspecified place in unspecified non-institutional (private) residence as the place of occurrence of the external cause; G37.9 Demyelinating disease of central nervous system, unspecified; F90.9 Attention-deficit hyperactivity disorder, unspecified type; F41.9 Anxiety disorder, unspecified; I12.9 Hypertensive chronic kidney disease with stage 1 through stage 4 chronic kidney disease, or unspecified chronic kidney disease; G43.919 Migraine, unspecified, intractable, without status migrainosus; N17.9 Acute kidney failure, unspecified; F17.210 Nicotine dependence, cigarettes, uncomplicated; Z86.16 Personal history of COVID-19; G93.49 Other encephalopathy; N03.9 Chronic nephritic syndrome with unspecified morphologic changes; E83.52 Hypercalcemia

== ENCOUNTER 2022-10-13 18:11 | Inpatient (IN) ==
--- NOTE | 2022-10-13 18:43 | Emergency Department Note ---
Impression & Plan Hypertension, Acute kidney injury, Kidney transplant recipient ED Provider Note NAME: JONAS YOUNG AGE: 42 SEX: F : 1980 ARRIVES VIA: Walk-In INFORMANT: [Patient][, ] ED PROVIDER(S): [Dmitry Escobar MD] Chief Complaint: HTN, outpatient referral HPI: Patient presents due to concern for worsening kidney dysfunction in setting of a history of kidney transplant and hypertension. The patient does follow with nephrology at [facility]. I did receive a phone call from Dr. Mcdowell her primary employee development manager who would like the patient to be admitted for blood pressure control and renal biopsy. He is concerned about the possibility of rejection. The patient has been compliant with her medications and otherwise does not have any acute complaints at this time. Patient has any chest pain shortness of breath or headache. No leg swelling. The patient states that her urine output has been normal. Patient has any fevers or chills. The patient does admit to being anxious. ROS: See HPI for pertinent positives and negatives. A total of 10 systems were reviewed and otherwise negative. Past medical history: See below Surgical history: See below Social history: See below Physical Exam: GENERAL: NAD, [wearing a mask,] non-toxic. Anxious in appearance, wearing a hat EYE EXAM: Normal conjunctiva. PERRL, no anisocoria and EOM's grossly intact w/o pain. NECK: Supple, no nuchal rigidity, no adenopathy, non-tender. No signs of meningismus. FROM of the neck with good chin to chest and neck extension. No stridor. LUNGS: Clear to auscultation. Normal chest wall mechanics. HEART: NSR, no MRG. ABDOMEN: Abdomen soft, non-tender, normo-active bowel sounds, no masses, no rebound or guarding. BACK: No CVA TTP. SKIN: No rashes and no bruising. UPPER EXTREMITIES: Upper extremities are grossly normal. LOWER EXTREMITIES: Grossly normal, no edema. NEURO EXAM: A&O x3, cranial nerves II-XII grossly intact, normal speech, moves all 4 extremities. Differential diagnoses: Benign hypertension, hypertensive emergency, cardiovascular pathology, toxicologic, pheochromocytoma, electrolyte abnormality, renal disease, endorgan damage, as well as other pathologies. Course: Patient was seen and evaluated the bedside. Full history physical exam was performed. EKG interpreted by me Sinus rate of 80s, machine rate is 165 this does not appear to be accurate. Left axis deviation, T wave version in V2 no obvious ST elevations. Imaging Studies: See Below Cardiac monitoring: An order was placed for continuous cardiac monitoring. The monitor shows a rate of 88 with sinus rhythm. MDM: Patient to present due to concern for hypertension. I had spoken with the patient's primary transplant employee development manager at [facility] would also discussed the possibility of renal biopsy. I did speak with radiology as well as urology and they do not offer renal biopsy. I did subsequently speak with the transplant employee development manager Dr. Bello at [facility] again and he stated that the patient could have a renal biopsy completed as an outpatient. Does not need to be done during her most recent admission. Patient was admitted for blood pressure control. I did speak the on-call hospitalist and the patient was admitted to the medicine service. Past Med/Surg History Medical History AVF (arteriovenous fistula) (~11/2004) Ligated 04/14 Concussion Depression with anxiety alcohol syndrome FHx unknown. Adopted. Possible alcohol syndrome Tobacco abuse Surgical History H/O inguinal hernia repair History of tonsillectomy and adenoidectomy Family History Other Adopted Family history unknown Social History Smoking Status: Unknown if ever smoked Cigarettes Per Day: 5; Second Hand Exposure: Yes; Hx Alcohol Use: No Hx Substance Use: No Preferred Language: Turkmen Communication Ability: Effective Ground Hel[employer] Required: No Beliefs That Will Affect Care: None marital status: Single Current Living Situation: Significant Other current occupational status: employed current occupation: [employer] Feels Safe at Home: Yes Assistive Devices: None Allergies Allergies Allergy/AdvReac Type Severity Reaction Status Date / Time tramadol Allergy Intermediate ITCHING Verified 10/13/22 22:23 Home Meds Home Medications Medication Instructions Recorded Confirmed sulfamethoxazole 400 1 tab PO 3XWK 09/10/18 10/13/22 mg-trimethoprim 80 mg tablet amlodipine 5 mg tablet 5 mg PO DAILY 10/13/22 10/13/22 Previous Rx's Medication Instructions Recorded tacrolimus 1 mg capsule, See Rx Instructions PO .COMPLEX #1 03/04/22 immediate-release cap lorazepam 0.5 mg tablet 0.5 mg PO DAILY PRN anxiety #10 06/24/22 tabs carvedilol 25 mg tablet 25 mg PO Q12H #60 tabs 08/21/22 nortriptyline 10 mg capsule 10 mg PO Q12H #60 caps 08/21/22 losartan 25 mg tablet 25 mg PO BID #60 tabs 09/02/22 Results & Data (ED) Vital Signs Vital Signs - 24 hr 10/13/22 18:20 10/13/22 18:50 10/13/22 19:56 Temperature 37.3 C Temperature Source Temporal Artery Scan Pulse Rate 93 H 81 Pulse Rate [Apical] 82 Pulse Rhythm Regular Respiratory Rate 18 20 Respiratory Effort / Characteristics Non-Labored Respiratory Depth Normal Respiratory Pattern Regular Blood Pressure 181/134 H Blood Pressure [Left Arm] 201/133 H Blood Pressure Mean 149 Blood Pressure Mean [Left Arm] 155 Pulse Oximetry 98 98 98 Oxygen Delivery Method Room Air Room Air Room Air Sepsis Recent Fever Within 48 Hours No Sepsis New/Unexplained Change in Mental Status N/A Sepsis Action Taken by Nursing No Action Required Home Medications Current Medication List: was personally reviewed by me Laboratory Data Attestation: I reviewed the patient's lab results. Result diagrams: 10/14/22 05:43 10/14/22 05:43 Lab Results 10/13/22 10/13/22 10/13/22 Range/Units 18:48 18:48 19:18 WBC 7.44 (4.8-10.8) K/ul RBC 3.98 (3.93-5.22) M/uL Hgb 12.9 (12.0-16.0) g/dl Hct 35.6 (34.1-44.9) % MCV 89.4 (80.0-100.0) fL MCH 32.4 (25.0-34.0) pg MCHC 36.2 H (32.0-36.0) g/dL RDW Std Deviation 39.7 (36.4-46.3) fL RDW Coeff of Shukri 12.2 (11.5-14.5) % Plt Count 192 (130-400) K/uL MPV 10.7 (9.4-12.3) fL Immature Gran % (Auto) 0.4 % Neut % (Auto) 67.6 % Lymph % (Auto) 17.2 % Peach % (Auto) 5.1 % Eos % (Auto) 9.3 % Baso % (Auto) 0.4 % Neut # (Auto) 5.03 (1.4-6.5) K/uL Lymph # (Auto) 1.28 (1.2-3.4) K/uL Peach # (Auto) 0.38 (0.24-0.82) K/uL Eos # (Auto) 0.69 H (0-0.50) K/uL Baso # (Auto) 0.03 (0-0.2) K/uL Immature Gran # (Auto) 0.03 H (0.00-0.02) K/uL Sodium 138 (136-145) mmol/L Potassium 4.3 (3.5-5.1) mmol/L Chloride 106 (98-107) mmol/L Carbon Dioxide 23 (21-32) mmol/L Anion Gap 9 (3-11) BUN 27 H (6-23) mg/dl Creatinine 2.71 H (0.6-1.2) mg/dl Est Cr Clr Drug Dosing 25.3 ml/min Est GFR ( Amer) 24.1 ml/min Est GFR (Non-Af Amer) 20.8 ml/min BUN/Creatinine Ratio 10.0 (10-20) Glucose 114 H (70-99(Fasting)) mg/dl Calcium 9.7 (8.5-10.1) mg/dl Total Bilirubin 1.1 H (0.2-1.0) mg/dl AST 14 (13-39) U/L ALT 11 (7-52) U/L Alkaline Phosphatase 61 (34-104) U/L Total Protein 6.5 (6.0-8.3) gm/dl Albumin 4.0 (3.4-5.0) gm/dl Globulin 2.5 (2.5-4.0) gm/dl Albumin/Globulin Ratio 1.6 (0.9-2) SARS-CoV-2, RNA, NAAT NEGATIVE (NEGATIVE) Administered Medications Carvedilol (Carvedilol 25 Mg Tab) 25 mg PO Q12 FLOR Stop: 11/13/22 01:59 Last Admin: 10/14/22 11:53 Dose: 25 mg Documented By: Admin: 10/14/22 02:32 Dose: 25 mg Documented By: YASMIN Heparin Sodium (Porcine) (Heparin Sod 5,000 Unit/0.5 Ml Vial) 5,000 units SQ Q12 [facility] Stop: 11/13/22 08:59 Last Admin: 10/14/22 08:14 Dose: 5,000 units Documented By: SR Sodium Chloride (Nss 1000ml) 1,000 mls @ 80 mls/hr IV .[id number] [facility] Stop: 11/13/22 08:59 Last Admin: 10/14/22 09:10 Dose: 80 mls/hr Documented By: SR Lorazepam (Lorazepam 0.5 Mg Tab) 0.5 mg PO DAILY PRN PRN Reason: anxiety Stop: 11/13/22 00:49 Last Admin: 10/14/22 11:01 Dose: 0.5 mg Documented By: SR Metoprolol Tartrate (Metoprolol Tartrate 1 Mg/Ml Vial) 5 mg IV Q4H PRN PRN Reason: SBP > 160 Stop: 11/13/22 02:02 Last Admin: 10/14/22 11:13 Dose: 5 mg Documented By: SR Nortriptyline HCl (Nortriptyline Hcl 10 Mg Cap) 10 mg PO Q12 [facility] Stop: 11/13/22 01:59 Last Admin: 10/14/22 11:53 Dose: 10 mg Documented By: Admin: 10/14/22 02:32 Dose: 10 mg Documented By: YASMIN Spironolactone (Spironolactone 25 Mg Tab) 25 mg PO QAM [facility] Stop: 11/13/22 10:59 Last Admin: 10/14/22 12:16 Dose: 25 mg Documented By: SR Tacrolimus (Tacrolimus 1 Mg Cap) 2 mg PO PM [facility] Stop: 11/13/22 00:49 Last Admin: 10/14/22 02:32 Dose: 2 mg Documented By: YASMIN Tacrolimus (Tacrolimus 1 Mg Cap) 3 mg PO QAM [facility] Stop: 11/13/22 08:59 Last Admin: 10/14/22 08:15 Dose: 3 mg Documented By: SR Discontinued Medications Amlodipine Besylate (Amlodipine Besylate 5 Mg Tab) 5 mg PO NOW ONE Stop: 10/14/22 13:06 Last Admin: 10/14/22 13:47 Dose: 5 mg Documented By: YOLANDA Magnesium Sulfate/Dextrose (Magnesium Sulfate / D5w) 1 gm in 100 mls @ 50 ml s/hr IV Q2H FLOR Stop: 10/14/22 14:44 Last Admin: 10/14/22 13:47 Dose: 50 mls/hr Documented By: Infusion: 10/14/22 13:44 Dose: 0 mls/hr Documented By: Admin: 10/14/22 11:13 Dose: 50 mls/hr Documented By: Infusion: 10/14/22 11:10 Dose: 50 mls/hr Documented By: Admin: 10/14/22 09:10 Dose: 50 mls/hr Documented By: Labetalol HCl (Labetalol Hcl Iv 5 Mg/Ml 20ml) 10 mg IV NOW STA Stop: 10/13/22 18:51 Last Admin: 10/13/22 19:07 Dose: 10 mg Documented By: NATALY Co-signed By: GUMARO Lorazepam (Lorazepam 1 Mg Tab) 1 mg SL NOW STA Stop: 10/13/22 18:56 Last Admin: 10/13/22 19:06 Dose: 1 mg Documented By: NATALY Losartan Potassium (Losartan Potassium 25 Mg Tab) 25 mg PO BID FLOR Stop: 11/13/22 00:49 Last Admin: 10/14/22 08:15 Dose: 25 mg Documented By: Admin: 10/14/22 02:33 Dose: 25 mg Documented By: LRS Imaging Data Radiologist's Impression: Chest X-Ray 10/13/22 18:50 XR chest 1V portable HISTORY: 42 years-old Female Hypertension acute hypertension COMPARISON: Chest radiograph 06/30/2022 TECHNIQUE: AP view of the chest FINDINGS: Cardiomediastinal and hilar silhouettes are within normal limits. There is no pneumothorax, pleural effusion, airspace consolidation or overt pulmonary edema. Bones appear grossly intact. IMPRESSION: No acute process. ACT 112: Negative or not required by law. The above report was generated using voice recognition software. It may contain grammatical, syntax or spelling errors. Electronically signed by: Poncho Araujo M.D. 10/13/2022 7:30 PM Discharge Plan Visit Data Chief Complaint: Referred by Doctor Stated Complaint: REFERRED BY MALLY, TAVARES TRANSPLANT ED Provider: Dmitry Escobar Discharge Problem: Hypertension, Acute kidney injury, Kidney transplant recipient Patient Disposition: Admitted As Inpatient Discharge Instructions Interventions: ED Discharge Assessment Last Done: 10/14/22 00:51
[2022-10-13] MEDS ORDERED: LABETALOL HCL IV 5 MG/ML 20ML IV STA (18:50)
[2022-10-13] MEDS ORDERED: LORazepam 1 MG TAB SL STA (18:55)
[2022-10-13 19:08] LABS: Basophils # (auto) 0.03 K/uL (0-0.2); Basophils % (auto) 0.4 %; Eosinophils # (auto) 0.69 K/uL (0-0.50); Eosinophils % (auto) 9.3 %; Hematocrit (blood only) 35.6 % (34.1-44.9); Hemoglobin 12.9 g/dl (12.0-16.0); Immature Granulocytes # (auto) 0.03 K/uL (0.00-0.02); Immature Granulocytes % (auto) 0.4 %; Lymphocytes # (auto) 1.28 K/uL (1.2-3.4); Lymphocytes % (auto) 17.2 %; Mean Corpuscular Hemoglobin 32.4 pg (25.0-34.0); Mean Corpuscular Hgb Conc 36.2 g/dL (32.0-36.0); Mean Corpuscular Volume 89.4 fL (80.0-100.0); Mean Platelet Volume 10.7 fL (9.4-12.3); Monocytes # (auto) 0.38 K/uL (0.24-0.82); Monocytes % (auto) 5.1 %; Neutrophils # (auto) 5.03 K/uL (1.4-6.5); Neutrophils % (auto) 67.6 %; Platelet Count 192 K/uL (130-400); RDW Coefficient of Variation 12.2 % (11.5-14.5); RDW Standard Deviation 39.7 fL (36.4-46.3); Red Blood Count 3.98 M/uL (3.93-5.22); White Blood Count 7.44 K/ul (4.8-10.8)
--- NOTE | 2022-10-13 19:32 | XRay Report ---
XR chest 1V portable HISTORY: 42 years-old Female Hypertension acute hypertension COMPARISON: Chest radiograph 06/30/2022 TECHNIQUE: AP view of the chest FINDINGS: Cardiomediastinal and hilar silhouettes are within normal limits. There is no pneumothorax, pleural e ffusion, airspace consolidation or overt pulmonary edema. Bones appear grossly intact. IMPRESSION: No acute process. ACT 112: Negative or not required by law. The above report was generated using voice recognition software. It may contain grammatical, syntax o r spelling errors. Electronically signed by: Poncho Araujo M.D. 10/13/2022 7:30 PM
[2022-10-13 19:33] LABS: Albumin Globulin Ratio 1.6 (0.9-2); Bilirubin,Total 1.1 mg/dl (0.2-1.0); Calcium 9.7 mg/dl (8.5-10.1); Creatinine Clr Calc Pharmacy 25.3 ml/min; Est GFR (African American) 24.1 ml/min; Est GFR (Non-African American) 20.8 ml/min; Globulin 2.5 gm/dl (2.5-4.0); Potassium 4.3 mmol/L (3.5-5.1); Total Protein 6.5 gm/dl (6.0-8.3)
--- NOTE | 2022-10-13 20:57 | History & Physical Report ---
Date of Service October 13, 2022 Assessment & Plan (1) Hypertensive urgency: Plan: Initial BPs up to 240s/130s and improved to 180s/100s after Labetalol 10mg IV x1 - ~25% decrease in presenting blood pressures which is appropriate as acute goal for tonight. Patient does have FADUMO (see below) but this may also be due to ? late kidney transplant rejection rather than effect of malignant hypertension. Patient is otherwise asymptomatic. - admit to PCU for close hemodynamic monitoring - contact provider for SBP >200 and/or DBP >120 - would consider further Labetalol IV doses in that case - continue home Carvedilol 25mg PO BID and Losartan 25mg PO BID (2) Acute kidney injury: Plan: Cr 2.71, baseline has been 1.5 - 2.0, and has increased from 2.5 several days ago. May be in context of malignant hypertension but may also be sign of late kidney transplant rejection. Patient has no pulmonary edema, oliguria or AMS. - BP control as stated above - Nephrology consulted - check renal US and UA - trend BMP in AM (3) Kidney transplant recipient: Plan: H/o right renal transplant 18 years ago due to polycystic kidney disease, per patient report. Follows with [facility] Nephrology. - continue home Tacrolimus and Bactrim M/W/F ppx - appreciate Nephrology recs - note: patient's primary Cage Shift Manager (Dr. Mcdowell in [facility]) is concerned for possible late rejection and would like to consider kidney biopsy as outpatient - recommend facilitation of this per primary Cage Shift Manager/day team/[facility] Nephrology - Tacrolimus level pending (4) Migraine headache: Plan: Chronic, no headache currently. Continue home Nortriptyline. (5) Anxiety: Plan: Chronic, continue home Ativan. 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 Patient presented to [facility] ED on 10/13 for worsening kidney function and hypertension. She reports that she was sent by primary Cage Shift Manager at [facility] for this. Of note patient reports that she had labs done at [facility] 2 days ago and had Cr of 2.5 (up to 2.7 in our ED). Patient denies headache, blurry vision, chest pain, SOB, hematuria or LE edema. She has had adequate urine output without changes. She does have chronic migraines (managed by [facility] Neurology - recently started on Nortriptyline) with migraines occurring several times per month, but none for last several days. Patient denies recent illness or decreased PO intake. Of note patient's primary engagement mgr is Dr. Mcdowell at [facility], and she recommended that patient be admitted for blood pressure control and did mention plans for outpatient renal biopsy due to concern for rejection. Patient last saw [facility] Nephrology (Dr. Espino) on 08/25 and had Losartan increased from 25 to 50mg at that time. Patient reports that she takes all of her medications regularly but her HTN medications have "not been working". In ED patient was hypertensive to 240s/130s. Labs significant for BUN 27/Cr 2.71 (baseline Cr 1.5 - 2 since 04/2022). Tacrolimus level collected and pending. COVID-19 negative. CXR unremarkable. UA pending. Patient received Ativan 1mg SL x1 as well as Labetalol 10mg IV x1. BP improved to ~180/100 one hour after Labetalol. Allergies Allergy/AdvReac Type Severity Reaction Status Date / Time tramadol Allergy Intermediate ITCHING Verified 10/13/22 22:23 Home Medications Medication Instructions Recorded Confirmed Type sulfamethoxazole 400 1 tab PO 3XWK 09/10/18 10/13/22 History mg-trimethoprim 80 mg tablet tacrolimus 1 mg capsule, See Rx Instructions PO .COMPLEX #1 03/04/22 10/13/22 Rx immediate-release cap lorazepam 0.5 mg tablet 0.5 mg PO DAILY PRN anxiety #10 06/24/22 10/13/22 Rx tabs carvedilol 25 mg tablet 25 mg PO Q12H #60 tabs 08/21/22 10/13/22 Rx nortriptyline 10 mg capsule 10 mg PO Q12H #60 caps 08/21/22 10/13/22 Rx losartan 25 mg tablet 25 mg PO BID #60 tabs 09/02/22 10/13/22 Rx amlodipine 5 mg tablet 5 mg PO DAILY 10/13/22 10/13/22 History Past Med/Surg History Medical History AVF (arteriovenous fistula) (~11/2004) Ligated 04/14 Concussion Depression with anxiety alcohol syndrome FHx unknown. Adopted. Possible alcohol syndrome Tobacco abuse Surgical History H/O inguinal hernia repair History of tonsillectomy and adenoidectomy Family History Other Adopted Family history unknown Social History Smoking Status: Unknown if ever smoked Cigarettes Per Day: 5; Second Hand Exposure: Yes; Hx Alcohol Use: No Hx Substance Use: No Preferred Language: British Communication Ability: Effective Manager Science Required: No Beliefs That Will Affect Care: None marital status: Single Current Living Situation: Significant Other current occupational status: employed current occupation: [employer] Feels Safe at Home: Yes Assistive Devices: None Review of Systems Review of Systems: All systems reviewed & are unremarkable except as noted in HPI & below Physical Exam Physical Exam: General: A&Ox3. NAD. Cooperative. HEENT: Atraumatic, normocephalic. Pulm: CTAB A&P. -wheezes, -rales, -rhonchi. Symmetrical chest rise. No increase work of breathing. No respiratory distress. Cardiac: RRR, -mrg. Radial pulses intact and symmetrical. Abdominal: soft, non-tender, non-distended, BS x 4 Skin: warm, dry, no rash Results & Data Results & Data ([facility]) Vital Signs (Past 12 Hours) Vital Signs Temp Pulse Pulse Resp BP BP Pulse Ox 10/13/22 19:56 82 20 201/133 H 98 10/13/22 18:50 81 98 10/13/22 18:20 37.3 C 93 H 18 181/134 H 98 O2 Del Method 10/13/22 19:56 Room Air 10/13/22 18:50 Room Air 10/13/22 18:20 Room Air Supervising Physician Co-Signing Physician Notes Attending addendum: I have physically seen this patient, have supervised the medical residents activities, and agree with the H&P unless as otherwise noted Hypertensive urgency- Some improvement in blood pressure after labetalol 10 mg IV from the ED Continue carvedilol 25 mg p.o. twice daily, losartan 25 mg p.o. twice daily Lopressor 5 mg IV every 4 hours as needed for systolic blood pressure greater than 160 Acute kidney injury/renal transplant status- Creatinine 2.71 with baseline range 1.5-2.0 Improved control of blood pressure as above Repeat laboratories in a.m. IV fluids Check renal ultrasound and urinalysis Tacrolimus level pending Consult nephrology Remaining orders and notations as noted Resident Activity Tracking Resident Involvement: Resident Care Provided Care Provided: Adult Hospital Medicine
[2022-10-13 22:35] LABS: Appearance Urine Clear (Clear); Bacteria Urine Automated Negative (Negative); Bilirubin Urine Negative (Negative); Blood Urine Negative (Negative); Color Urine Yellow; Epithelial Cell Urine Auto >30 /lpf (0-5); Glucose Urine UA Negative (Negative); Ketones Urine Negative (Negative); Leukocyte Esterase Urine Negative (Negative); Nitrite Urine Negative (Negative); Protein Urine 2+ (Negative); RBC Urine Automated 0-4 /hpf (0-4); Specific Gravity Urine 1.006 (1.000-1.030); Urobilinogen Urine Negative (Negative)
[2022-10-14] MEDS ORDERED: ACETAMINOPHEN 325 MG TAB PO PRN (00:50)
[2022-10-14] MEDS: carvediloL 25 MG TAB PO SCH ×3 (02:32→20:37)
[2022-10-14] MEDS: NORTRIPTYLINE HCL 10 MG CAP PO SCH ×3 (02:32→20:37)
[2022-10-14] MEDS: TACROLIMUS 1 MG CAP PO SCH ×3 (02:32→20:37)
[2022-10-14] MEDS: LOSARTAN POTASSIUM 25 MG TAB PO SCH ×2 (02:33→08:15)
[2022-10-14 06:34] LABS: Hematocrit (blood only) 32.7 % (34.1-44.9); Hemoglobin 11.5 g/dl (12.0-16.0); Mean Corpuscular Hemoglobin 31.4 pg (25.0-34.0); Mean Corpuscular Hgb Conc 35.2 g/dL (32.0-36.0); Mean Corpuscular Volume 89.3 fL (80.0-100.0); Mean Platelet Volume 10.9 fL (9.4-12.3); Platelet Count 190 K/uL (130-400); RDW Coefficient of Variation 12.3 % (11.5-14.5); RDW Standard Deviation 40.1 fL (36.4-46.3); Red Blood Count 3.66 M/uL (3.93-5.22); White Blood Count 6.96 K/ul (4.8-10.8)
[2022-10-14 07:07] LABS: BUN Creatinine Ratio 9.7 (10-20); Calcium 9.1 mg/dl (8.5-10.1); Creatinine Clr Calc Pharmacy 23.7 ml/min; Est GFR (African American) 22.2 ml/min; Est GFR (Non-African American) 19.2 ml/min; Magnesium 1.4 mg/dl (1.7-2.4); Phosphorus 4.1 mg/dl (2.5-4.9)
[2022-10-14] MEDS: HEPARIN SOD 5,000 UNIT/0.5 ML VIAL SQ SCH ×2 (08:14→20:40)
--- NOTE | 2022-10-14 08:39 | Hospitalist Progress Note ---
Date of Service October 14, 2022 Assessment & Plan (1) Hypertensive urgency: Plan: Initial BPs up to 240s/130s and improved to 180s/100s after Labetalol 10mg IV x1 - ~25% decrease in presenting blood pressures overnight FADUMO on admit, ?late transplant refection vs malignant HTN (vs medication related?) Hx renal transplant for Had been continued on losartan 25mg BID, carvedilol 25mg BID on admission. Also takes amlodipine 5mg daily BP remained elevated 167/112 this morning --> I did hold her losartan in meantime (had been given 2 doses) --> Gentle IVF in meantime given Cr 2.7 on admit --> 2.9 Nephrology on consult--> ok w/ gentle IVF * Started spironolactone 25mg daily initiated I also resumed her amlodipine 5mg daily as not ordered on admit BP currently 157/90 this afternoon Monitor on tele -- rates 60-70s, frequent PVCs Mag checked, 1.4--> IV replacement ordered Lopressor available prn for SBP >200 or DBP >120 Tacrolimus level pending (prior value in June LOW 2.7) Continued monitoring of BP/Cr overnight and repeat labs in AM. Titration of BP medications in coordination with nephrology. 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 Urine microscopy is negative for blood, WBC or cellular casts Nephrology following -- agree w/ gentle hydration Await tacrolimus level Monitor BMP Cr 1.71, baseline has been 1.5 - 2.0, and has increased from 2.5 several days ago. May be in context of malignant hypertension but may also be sign of late kidney transplant rejection. Patient has no pulmonary edema, oliguria or AMS. - BP control as stated above - Nephrology consulted - check renal US and UA - trend BMP in AM (3) Kidney transplant recipient: Plan: H/o right renal transplant 18 years ago due to polycystic kidney disease, per patient report. Per nephro, GN. Follows with [facility] Nephrology, primary nut grader is Dr Mcdowell in [facility] however s/p CAMP MANAGER 10/13 at [facility]. Baseline Cr 1.6 - 2.0 (depending upon hydration status) Immunosuppressive regimen consists of Tacrolimus 3mg po qAM/2mg po qPM Renal U/S : Prominent collecting system in the upper pole of the transplant kidney without krystal hydronephrosis. No evidence of vascular stenosis. Tacrolimus continued, tacrolimus level pending If renal allograft biopsy becomes necessary, will need transfer to [facility] for VIR biopsy and ongoing medical management by transplant team (4) Migraine headache: Plan: Chronic, no headache currently. Continue home Nortriptyline. None reported to me during exam, sleeping comfortably in bed (5) Anxiety: Plan: Chronic, continue home Ativan as needed Plan DVT Prophylaxis: Heparin SQ continued inpatient stay held losartan, started spironolactone per nephrology, resumed home amlodipine gentle hydration tacrolimus level pending Trend BP-- improved, diastolic now < 100 Labs in AM if biopsy needed will need to transfer to [place] Admission and Anticipated Discharge Date Admission Date: October 13, 2022 Supervising Physician Co-Signing Physician Notes Attending Attestation - Chart reviewed, care plan d/w PA Josseline Lowery. I agree w/ the kramer components of her documentation. Mahad Aly MD Subjective eval this afternoon in room 241-2. resting in bed had been keeping up w/ PO intake at home, no nausea/vomiting/dehydration. no abdominal pain. States she wouldn't be in the hospital if it weren't for abnor mal labs and that she feels fine otherwise. discussed renal US without significant stenosis, held her losartan for FADUMO and tacrolimus level pending. Hx transplant 18-19 years ago resumed her amlodipine daily she is taking for BP, BP most recently 176/[address] Espino Will monitor Cr in AM/BP overnight. No headache/visual changes, hx migraines and follows with Neurology. Review of Systems Review of Systems: All systems reviewed & are unremarkable except as noted in HPI & below Physical Exam Physical Exam: General: WD/WN female resting in bed, NAD HEENT: head normocephalic, atraumatic, mmm, trachea midline, no deviation Resp: CTAB, no m/r/g, 97% on RA CV: regular rate/rhythm (frequent PVC, 70s on monitor), no m/r/g, no pitting edema/calf tenderness GI: +BS, soft/NT, no renal bruit appreciated no duncan MSK/Neuro/Psych: AOX3, cooperative, no focal deficit appreciated Skin: warm, dry, perfused Results & Data Results & Data ([facility]) Vital Signs (Past 12 Hours) Vital Signs Temp Pulse Resp BP Pulse Ox O2 Del Method 10/14/22 07:50 77 18 154/106 H 98 Room Air 10/14/22 04:00 85 18 162/119 H 98 Room Air 10/14/22 04:13 36.5 C 85 18 162/119 H 98 Room Air 10/14/22 02:00 83 16 159/109 H 98 Room Air 10/14/22 01:19 78 18 160/110 H 98 Room Air 10/14/22 01:19 98 Room Air 10/13/22 23:36 182/119 H 10/13/22 22:09 88 18 178/120 H 98 Laboratory Results 10/14/22 10/14/22 10/13/22 Range/Units 05:43 05:43 Unknown WBC 6.96 (4.8-10.8) K/ul RBC 3.66 L (3.93-5.22) M/uL Hgb 11.5 L (12.0-16.0) g/dl Hct 32.7 L (34.1-44.9) % MCV 89.3 (80.0-100.0) fL MCH 31.4 (25.0-34.0) pg MCHC 35.2 (32.0-36.0) g/dL RDW Std Deviation 40.1 (36.4-46.3) fL RDW Coeff of Shukri 12.3 (11.5-14.5) % Plt Count 190 (130-400) K/uL MPV 10.9 (9.4-12.3) fL Immature Gran % (Auto) % Neut % (Auto) % Lymph % (Auto) % Moca % (Auto) % Eos % (Auto) % Baso % (Auto) % Neut # (Auto) (1.4-6.5) K/uL Lymph # (Auto) (1.2-3.4) K/uL Moca # (Auto) (0.24-0.82) K/uL Eos # (Auto) (0-0.50) K/uL Baso # (Auto) (0-0.2) K/uL Immature Gran # (Auto) (0.00-0.02) K/uL Sodium 138 (136-145) mmol/L Potassium 4.0 (3.5-5.1) mmol/L Chloride 107 (98-107) mmol/L Carbon Dioxide 25 (21-32) mmol/L Anion Gap 6 (3-11) BUN 28 H (6-23) mg/dl Creatinine 2.90 H (0.6-1.2) mg/dl Est Cr Clr Drug Dosing 23.7 ml/min Est GFR ( Amer) 22.2 ml/min Est GFR (Non-Af Amer) 19.2 ml/min BUN/Creatinine Ratio 9.7 L (10-20) Glucose 92 (70-99(Fasting)) mg/dl Calcium 9.1 (8.5-10.1) mg/dl Phosphorus 4.1 (2.5-4.9) mg/dl Magnesium 1.4 L (1.7-2.4) mg/dl Total Bilirubin (0.2-1.0) mg/dl AST (13-39) U/L ALT (7-52) U/L Alkaline Phosphatase (34-104) U/L Total Protein (6.0-8.3) gm/dl Albumin (3.4-5.0) gm/dl Globulin (2.5-4.0) gm/dl Albumin/Globulin Ratio (0.9-2) Urine Color Yellow Urine Appearance Clear (Clear) Urine pH 6.0 (4.5-7.5) Ur Specific [place] 1.006 (1.000-1.030) Urine Protein 2+ H (Negative) Urine Glucose (UA) Negative (Negative) Urine Ketones Negative (Negative) Urine Blood Negative (Negative) Urine Nitrite Negative (Negative) Urine Bilirubin Negative (Negative) Urine Urobilinogen Negative (Negative) Ur Leukocyte Esterase Negative (Negative) Urine WBC (Auto) 1-5 (0-5) /hpf Urine RBC (Auto) 0-4 (0-4) /hpf U Hyaline Cast (Auto) 1-5 (0-5) /lpf U Epithel Cells (Auto) >30 H (0-5) /lpf Urine Bacteria (Auto) Negative (Negative) Tacrolimus SARS-CoV-2, RNA, NAAT (NEGATIVE) 10/13/22 10/13/22 10/13/22 Range/Units 19:18 18:48 18:48 WBC (4.8-10.8) K/ul RBC (3.93-5.22) M/uL Hgb (12.0-16.0) g/dl Hct (34.1-44.9) % MCV (80.0-100.0) fL MCH (25.0-34.0) pg MCHC (32.0-36.0) g/dL RDW Std Deviation (36.4-46.3) fL RDW Coeff of Shukri (11.5-14.5) % Plt Count (130-400) K/uL MPV (9.4-12.3) fL Immature Gran % (Auto) % Neut % (Auto) % Lymph % (Auto) % Moca % (Auto) % Eos % (Auto) % Baso % (Auto) % Neut # (Auto) (1.4-6.5) K/uL Lymph # (Auto) (1.2-3.4) K/uL Moca # (Auto) (0.24-0.82) K/uL Eos # (Auto) (0-0.50) K/uL Baso # (Auto) (0-0.2) K/uL Immature Gran # (Auto) (0.00-0.02) K/uL Sodium 138 (136-145) mmol/L Potassium 4.3 (3.5-5.1) mmol/L Chloride 106 (98-107) mmol/L Carbon Dioxide 23 (21-32) mmol/L Anion Gap 9 (3-11) BUN 27 H (6-23) mg/dl Creatinine 2.71 H (0.6-1.2) mg/dl Est Cr Clr Drug Dosing 25.3 ml/min Est GFR ( Amer) 24.1 ml/min Est GFR (Non-Af Amer) 20.8 ml/min BUN/Creatinine Ratio 10.0 (10-20) Glucose 114 H (70-99(Fasting)) mg/dl Calcium 9.7 (8.5-10.1) mg/dl Phosphorus (2.5-4.9) mg/dl Magnesium (1.7-2.4) mg/dl Total Bilirubin 1.1 H (0.2-1.0) mg/dl AST 14 (13-39) U/L ALT 11 (7-52) U/L Alkaline Phosphatase 61 (34-104) U/L Total Protein 6.5 (6.0-8.3) gm/dl Albumin 4.0 (3.4-5.0) gm/dl Globulin 2.5 (2.5-4.0) gm/dl Albumin/Globulin Ratio 1.6 (0.9-2) Urine Color Urine Appearance (Clear) Urine pH (4.5-7.5) Ur Specific [place] (1.000-1.030) Urine Protein (Negative) Urine Glucose (UA) (Negative) Urine Ketones (Negative) Urine Blood (Negative) Urine Nitrite (Negative) Urine Bilirubin (Negative) Urine Urobilinogen (Negative) Ur Leukocyte Esterase (Negative) Urine WBC (Auto) (0-5) /hpf Urine RBC (Auto) (0-4) /hpf U Hyaline Cast (Auto) (0-5) /lpf U Epithel Cells (Auto) (0-5) /lpf Urine Bacteria (Auto) (Negative) Tacrolimus Pending SARS-CoV-2, RNA, NAAT NEGATIVE (NEGATIVE) 10/13/22 Range/Units 18:48 WBC 7.44 (4.8-10.8) K/ul RBC 3.98 (3.93-5.22) M/uL Hgb 12.9 (12.0-16.0) g/dl Hct 35.6 (34.1-44.9) % MCV 89.4 (80.0-100.0) fL MCH 32.4 (25.0-34.0) pg MCHC 36.2 H (32.0-36.0) g/dL RDW Std Deviation 39.7 (36.4-46.3) fL RDW Coeff of Shukri 12.2 (11.5-14.5) % Plt Count 192 (130-400) K/uL MPV 10.7 (9.4-12.3) fL Immature Gran % (Auto) 0.4 % Neut % (Auto) 67.6 % Lymph % (Auto) 17.2 % Moca % (Auto) 5.1 % Eos % (Auto) 9.3 % Baso % (Auto) 0.4 % Neut # (Auto) 5.03 (1.4-6.5) K/uL Lymph # (Auto) 1.28 (1.2-3.4) K/uL Moca # (Auto) 0.38 (0.24-0.82) K/uL Eos # (Auto) 0.69 H (0-0.50) K/uL Baso # (Auto) 0.03 (0-0.2) K/uL Immature Gran # (Auto) 0.03 H (0.00-0.02) K/uL Sodium (136-145) mmol/L Potassium (3.5-5.1) mmol/L Chloride (98-107) mmol/L Carbon Dioxide (21-32) mmol/L Anion Gap (3-11) BUN (6-23) mg/dl Creatinine (0.6-1.2) mg/dl Est Cr Clr Drug Dosing ml/min Est GFR ( Amer) ml/min Est GFR (Non-Af Amer) ml/min BUN/Creatinine Ratio (10-20) Glucose (70-99(Fasting)) mg/dl Calcium (8.5-10.1) mg/dl Phosphorus (2.5-4.9) mg/dl Magnesium (1.7-2.4) mg/dl Total Bilirubin (0.2-1.0) mg/dl AST (13-39) U/L ALT (7-52) U/L Alkaline Phosphatase (34-104) U/L Total Protein (6.0-8.3) gm/dl Albumin (3.4-5.0) gm/dl Globulin (2.5-4.0) gm/dl Albumin/Globulin Ratio (0.9-2) Urine Color Urine Appearance (Clear) Urine pH (4.5-7.5) Ur Specific [place] (1.000-1.030) Urine Protein (Negative) Urine Glucose (UA) (Negative) Urine Ketones (Negative) Urine Blood (Negative) Urine Nitrite (Negative) Urine Bilirubin (Negative) Urine Urobilinogen (Negative) Ur Leukocyte Esterase (Negative) Urine WBC (Auto) (0-5) /hpf Urine RBC (Auto) (0-4) /hpf U Hyaline Cast (Auto) (0-5) /lpf U Epithel Cells (Auto) (0-5) /lpf Urine Bacteria (Auto) (Negative) Tacrolimus SARS-CoV-2, RNA, NAAT (NEGATIVE) Diagnostic Findings Chest X-Ray 10/13/22 18:50 XR chest 1V portable HISTORY: 42 years-old Female Hypertension acute hypertension COMPARISON: Chest radiograph 06/30/2022 TECHNIQUE: AP view of the chest FINDINGS: Cardiomediastinal and hilar silhouettes are within normal limits. There is no p neumothorax, pleural effusion, airspace consolidation or overt pulmonary edema. Bones appear grossly intact. IMPRESSION: No acute process. ACT 112: Negative or not required by law. The above report was generated using voice recognition software. It may contain grammatical, syntax or spelling errors. Electronically signed by: Poncho Araujo M.D. 10/13/2022 7:30 PM Renal Ultrasound 10/13/22 21:59 ULTRASOUND TRANSPLANTED KIDNEY CLINICAL HISTORY: h/o right transplant, worsening HTN TECHNIQUE: Real-time and Doppler sonographic images of the transplant kidney were obtained. Comparison: Comparison is made to renal transit spinal ultrasound 07/01/2022 FINDINGS: The transplant kidney is located in the right hemipelvis. There is a prominent collecting system in the upper pole. The highest arterial resistive index is 0.61 the lower pole. The right renal artery velocity as follows: Distal: 71.6 cm/s Mid: 91.6 cm/s Proximal: 148.9 cm/s Right iliac artery velocity measures 138.6 cm/s. Impression: Prominent collecting system in the upper pole of the transplant kidney without krystal hydronephrosis. No evidence of vascular stenosis. ACT 112: Negative or not required by law. Electronically signed by: Kb Michael M.D. 10/14/2022 10:12 AM PG Care Time/CCT Total # of Minutes Spent Total Time Spent with Patient: Total time spent is greater than 50% in coordination of care (as documented) at patient's floor/unit and/or counseling patient: Coding Level of Care Code 44109 Subseq Hosp Care Lvl 3 Diagnoses Hypertensive urgency I16.0 Acute kidney injury N17.9 Kidney transplant recipient Z94.0 Migraine headache G43.909 Anxiety F41.9
[2022-10-14] MEDS ORDERED: SODIUM CHLORIDE 0.9% 1000ML 1,000 ML IV SCH (09:00)
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
[2022-10-14] MEDS: MAGNESIUM SULFATE / D5W 1 GM/100 ML BAG IV SCH ×3 (09:10→13:47)
--- NOTE | 2022-10-14 10:13 | Ultrasound Report ---
ULTRASOUND TRANSPLANTED KIDNEY CLINICAL HISTORY: h/o right transplant, worsening HTN TECHNIQUE: Real-time and Doppler sonographic images of the transplant kidney were obtained. Comparison: Comparison is made to renal transit spinal ultrasound 07/01/2022 FINDINGS: The transplant kidney is located in the right hemipelvis. There is a prominent collecting s ystem in the upper pole. The highest arterial resistive index is 0.61 the lower pole. The right renal artery velocity as follows: Distal: 71.6 cm/s Mid: 91.6 cm/s Proximal: 148.9 cm/s Right iliac artery velocity measures 138.6 cm/s. Impression: Prominent collecting system in the upper pole of the transplant kidney without krystal hydronephrosis. No evidence of vascular stenosis. ACT 112: Negative or not required by law. Electronically signed by: Kb Michael M.D. 10/14/2022 10:12 AM
[2022-10-14] MEDS: LORazepam 0.5 MG TAB PO PRN (11:01)
[2022-10-14] MEDS: METOPROLOL TARTRATE 1 MG/ML VIAL IV PRN ×3 (11:13→23:20)
[2022-10-14] MEDS: SPIRONOLACTONE 25 MG TAB PO SCH (12:16)
[2022-10-14] MEDS ORDERED: amLODIPine BESYLATE 5 MG TAB PO ONE (13:05)
--- NOTE | 2022-10-14 16:34 | Electrocardiogram Report ---
Test Reason : Blood Pressure : / mmHG Vent. Rate : 165 BPM Atrial Rate : 085 BPM P-R Int : 134 ms QRS Dur : 082 ms QT Int : 342 ms P-R-T Axes : 048 -30 059 degrees QTc Int : 566 ms Poor data quality, interpretation may be adversely affected Sinus rhythm with frequent Premature ventricular complexes Left axis deviation Low voltage QRS Inferior infarct , age undetermined Cannot rule out Anterior infarct (cited on or before 13-OCT-2022) Abnormal ECG When compared with ECG of 01-JUL-2022 18:09, Premature ventricular complexes are now Present Vent. rate has increased BY 99 BPM QRS axis Shifted left Questionable change in initial forces of Anterior leads Confirmed by Soren Pop ([id number]) on 10/14/2022 4:34:17 PM Referred By: REFERRED SELF Confirmed By:Soren Pop
[2022-10-14 17:06] LABS: BUN Creatinine Ratio 9.3 (10-20); Calcium 8.9 mg/dl (8.5-10.1); Creatinine Clr Calc Pharmacy 24.6 ml/min; Est GFR (African American) 23.3 ml/min; Est GFR (Non-African American) 20.1 ml/min; Potassium 4.5 mmol/L (3.5-5.1)
[2022-10-14] MEDS ORDERED: LORazepam 1 MG TAB PO STA (19:57)
[2022-10-14 20:03] LABS: Creatinine Urine Random 82.5 mg/dl; Protein Creatinine Ratio Urine 1.5 (0-0.2); Total Protein Urine Random 122.5 mg/dl (0-11.9)
[2022-10-14] MEDS ORDERED: hydrALAZINE HCL 20 MG/ML VIAL IV ONE (21:32)
--- NOTE | 2022-10-15 00:05 | Billing Data ---
Date of Service October 15, 2022 Coding Level of Care Code 44348 Initial Inpt Care Lvl 3
[2022-10-15] MEDS: METOPROLOL TARTRATE 1 MG/ML VIAL IV PRN (03:28)
[2022-10-15 06:11] LABS: Hematocrit (blood only) 31.6 % (34.1-44.9); Hemoglobin 11.3 g/dl (12.0-16.0); Mean Corpuscular Hgb Conc 35.8 g/dL (32.0-36.0); Mean Corpuscular Volume 89.5 fL (80.0-100.0); Mean Platelet Volume 10.9 fL (9.4-12.3); Platelet Count 168 K/uL (130-400); RDW Coefficient of Variation 12.3 % (11.5-14.5); RDW Standard Deviation 39.9 fL (36.4-46.3); Red Blood Count 3.53 M/uL (3.93-5.22); White Blood Count 6.98 K/ul (4.8-10.8)
[2022-10-15 06:33] LABS: Albumin Globulin Ratio 1.6 (0.9-2); Albumin Level 3.3 gm/dl (3.4-5.0); BUN Creatinine Ratio 9.1 (10-20); Bilirubin,Total 0.7 mg/dl (0.2-1.0); Calcium 9.1 mg/dl (8.5-10.1); Creatinine Clr Calc Pharmacy 24.9 ml/min; Est GFR (African American) 23.6 ml/min; Est GFR (Non-African American) 20.3 ml/min; Globulin 2.1 gm/dl (2.5-4.0); Magnesium 1.9 mg/dl (1.7-2.4); Potassium 4.4 mmol/L (3.5-5.1); Total Protein 5.4 gm/dl (6.0-8.3)
[2022-10-15] MEDS: NORTRIPTYLINE HCL 10 MG CAP PO SCH ×2 (08:00→20:06)
[2022-10-15] MEDS: SPIRONOLACTONE 25 MG TAB PO SCH (08:00)
[2022-10-15] MEDS: amLODIPine BESYLATE 5 MG TAB PO SCH (08:00)
[2022-10-15] MEDS: HEPARIN SOD 5,000 UNIT/0.5 ML VIAL SQ SCH ×2 (08:01→20:58)
[2022-10-15] MEDS: carvediloL 25 MG TAB PO SCH ×2 (08:01→20:06)
[2022-10-15] MEDS: TACROLIMUS 1 MG CAP PO SCH ×2 (08:02→20:06)
--- NOTE | 2022-10-15 09:00 | Nephrology Progress Note ---
Date of Service October 15, 2022 Assessment & Plan (1) Hypertensive urgency: Plan: * SBP improved on Carvedilol, Amlodipine and low dose Spironolactone * 03/30 Renal US included doppler of CARDIAC CATH LAB RADIOLOGY TECHNOLOGIST artery - no EDWIN reported * Continue current medical regimen (2) Acute kidney injury: Plan: * Serum Cr had been 1.7 - 2.0 up until 08/30 depending upon hydration status * Losartan has been held due to FADUMO * UPCR has risen to 1.5 * Urine microscopy is negative for blood, WBC or cellular casts * Hold IVF * Await trough Tacrolimus level * Monitor serial PRP * Once SBP < 140 mm Hg, could consider discharge to allow patient outpatient evaluation at [facility] for CARDIAC CATH LAB RADIOLOGY TECHNOLOGIST biopsy (3) History of kidney transplant: Plan: * 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 Baseline Cr 1.6 - 2.0 (depending upon hydration status) * Immunosuppressive regimen consists only of Tacrolimus 3mg po qAM/2mg po qPM Admission and Anticipated Discharge Date Admission Date: October 13, 2022 Subjective Miss Will was evaluated in her hospital room this morning. She is tolerating her medication without side effect. She voices no new medical concerns Review of Systems Eyes: no problem reported Respiratory: no cough and no dyspnea Cardiovascular: no chest pain Gastrointestinal: no abdominal pain, no vomiting and no diarrhea/loose stools Neurologic: no confusion Physical Exam Constitutional: not in distress Eyes: PERRL, conjunctivae normal, anicteric sclerae ENMT: external ear and nose normal, oropharynx normal Neck: trachea midline, no thyromegaly Respiratory: normal respiratory effort, lungs clear to auscultation Cardiovascular: RRR, no murmur, no edema Vessels: no JVD, no carotid bruit and no renal bruit (over transplant allograft) Gastrointestinal (Abdomen): normal bowel sounds, soft, nontender, no hepatosplenomegaly Neurologic: Speech / Cognition: normal speech Motor/Sensory: normal movement Cranial Nerves: PERRL Psychiatric: Affect: + depressed affect Results & Data ([facility]) Vital Signs (Past 12 Hours) Vital Signs Temp Pulse Pulse Pulse Resp BP BP 10/15/22 07:40 36.6 C 99 H 20 173/103 H 10/15/22 03:28 96 H 161/97 H 10/15/22 02:54 36.7 C 96 H 18 161/97 H 10/15/22 00:05 87 10/14/22 23:48 86 159/92 H 10/14/22 23:20 90 161/116 H 10/14/22 23:23 90 149/85 H 10/14/22 22:52 36.8 C 84 20 161/116 H 10/14/22 21:45 81 161/97 H 10/14/22 21:22 86 177/117 H Pulse Ox O2 Del Method 10/15/22 07:40 99 Room Air 10/15/22 03:28 10/15/22 02:54 97 Room Air 10/15/22 00:05 10/14/22 23:48 10/14/22 23:20 10/14/22 23:23 10/14/22 22:52 97 Room Air 10/14/22 21:45 10/14/22 21:22 Laboratory Results Laboratory Tests 10/13/22 10/14/22 10/15/22 18:48 19:30 05:57 WBC 6.98 Hgb 11.3 L Hct 31.6 L Plt Count 168 Sodium Potassium Chloride Carbon Dioxide BUN Creatinine Glucose Albumin Protein/Creatinin Ratio 1.5 H Tacrolimus Pending 10/15/22 05:57 WBC Hgb Hct Plt Count Sodium 139 Potassium 4.4 Chloride 109 H Carbon Dioxide 25 BUN 25 H Creatinine 2.76 H Glucose 98 Albumin 3.3 L Protein/Creatinin Ratio Tacrolimus PG Care Time/CCT Total # of Minutes Spent Total Time Spent with Patient: Total time spent is greater than 50% in coordination of care (as documented) at patient's floor/unit and/or counseling patient: Coding Level of Care Code 51944 Subseq Hosp Care Lvl 3 Diagnoses Hypertensive urgency I16.0 Acute kidney injury N17.9 History of kidney transplant Z94.0
[2022-10-15] MEDS ORDERED: SPIRONOLACTONE 25 MG TAB PO ONE (09:15)
[2022-10-15] MEDS: LORazepam 0.5 MG TAB PO PRN (13:28)
--- NOTE | 2022-10-15 21:18 | Hospitalist Progress Note ---
Date of Service October 15, 2022 Assessment & Plan (1) Hypertensive urgency: Plan: Initial BPs up to 240s/130s and improved to 180s/100s after Labetalol 10mg IV x1 - ~25% decrease in presenting blood pressures which is appropriate as acute goal for tonight. Patient does have FADUMO (see below) but this may also be due to ? late kidney transplant rejection rather than effect of malignant hypertension. Patient is otherwise asymptomatic. - admit to PCU for close hemodynamic monitoring - contact provider for SBP >200 and/or DBP >120 - would consider further Labetalol IV doses in that case - continue home Carvedilol 25mg PO BID and Losartan 25mg PO BID -BP appears better controlled today with the addition of spirinoloactone. will monitor overnight (2) Acute kidney injury: Plan: Cr 2.71, baseline has been 1.5 - 2.0, and has increased from 2.5 several days ago. May be in context of malignant hypertension but may also be sign of late kidney transplant rejection. Patient has no pulmonary edema, oliguria or AMS. - BP control as stated above - Nephrology consulted - appreciate input - trend BMP in AM -remins at 2.7 on 10/15 (essentially unchanged) (3) Kidney transplant recipient: Plan: H/o right renal transplant 18 years ago due to polycystic kidney disease, per patient report. Follows with [facility] Nephrology. - continue home Tacrolimus and Bactrim M/W/F ppx - appreciate Nephrology recs - note: patient's primary Science Liaison (Dr. Mcdowell in [facility]) is concerned for possible late rejection and would like to consider kidney biopsy as outpatient - recommend facilitation of this per primary Science Liaison/day team/[facility] Nephrology - Tacrolimus level pending (4) Migraine headache: Plan: Chronic, no headache currently. Continue home Nortriptyline. (5) Anxiety: Plan: Chronic, continue home Ativan. Plan FEN/GI: regular diet DVT Prophylaxis: Heparin SQ Code Status: full code Disposition: PCU Admission and Anticipated Discharge Date Admission Date: October 13, 2022 Subjective 42 yo female reports no new symptoms. Review of Systems Review of Systems: All systems reviewed & are unremarkable except as noted in HPI & below Physical Exam Physical Exam: General: WD/WN female resting in bed, NAD HEENT: head normocephalic, atraumatic, mmm, trachea midline, no deviation Resp: CTAB, no m/r/g, 97% on RA CV: regular rate/rhythm (frequent PVC, 70s on monitor), no m/r/g, no pitting edema/calf tenderness GI: +BS, soft/NT, no renal bruit appreciated no duncan MSK/Neuro/Psych: AOX3, cooperative, no focal deficit appreciated Skin: warm, dry, perfused Results & Data Results & Data ([facility]) Vital Signs (Past 12 Hours) Vital Signs Temp Pulse Resp BP Pulse Ox O2 Del Method 10/15/22 19:40 36.7 C 88 20 158/107 H 98 Room Air 10/15/22 15:29 36.9 C 61 18 127/86 98 Room Air 10/15/22 11:40 36.8 C 98 H 18 136/81 96 Room Air 10/15/22 09:24 167/105 H PG Care Time/CCT Total # of Minutes Spent Total Time Spent with Patient: Total time spent is greater than 50% in coordination of care (as documented) at patient's floor/unit and/or counseling patient: Coding Level of Care Code 09014 Subseq Hosp Care Lvl 2 Diagnoses Hypertensive urgency I16.0 Acute kidney injury N17.9 Kidney transplant recipient Z94.0 Migraine headache G43.909 Anxiety F41.9 Time Spent (min) 25
[2022-10-15] MEDS ORDERED: SULFA/TRIMETH 400/80MG TAB PO SCH (22:00)
[2022-10-16] MEDS: METOPROLOL TARTRATE 1 MG/ML VIAL IV PRN ×2 (01:20→15:26)
[2022-10-16 07:07] LABS: Hematocrit (blood only) 32.7 % (34.1-44.9); Hemoglobin 11.4 g/dl (12.0-16.0); Mean Corpuscular Hemoglobin 31.8 pg (25.0-34.0); Mean Corpuscular Hgb Conc 34.9 g/dL (32.0-36.0); Mean Corpuscular Volume 91.3 fL (80.0-100.0); Mean Platelet Volume 11.1 fL (9.4-12.3); Platelet Count 173 K/uL (130-400); RDW Coefficient of Variation 12.4 % (11.5-14.5); RDW Standard Deviation 41.5 fL (36.4-46.3); Red Blood Count 3.58 M/uL (3.93-5.22); White Blood Count 7.39 K/ul (4.8-10.8)
[2022-10-16 07:31] LABS: Albumin Globulin Ratio 1.5 (0.9-2); Albumin Level 3.5 gm/dl (3.4-5.0); BUN Creatinine Ratio 8.6 (10-20); Bilirubin,Total 0.6 mg/dl (0.2-1.0); Calcium 9.1 mg/dl (8.5-10.1); Creatinine Clr Calc Pharmacy 25.7 ml/min; Est GFR (African American) 24.5 ml/min; Est GFR (Non-African American) 21.2 ml/min; Globulin 2.3 gm/dl (2.5-4.0); Potassium 4.4 mmol/L (3.5-5.1); Total Protein 5.8 gm/dl (6.0-8.3)
[2022-10-16] MEDS: amLODIPine BESYLATE 5 MG TAB PO SCH ×2 (07:37→17:56)
[2022-10-16] MEDS: HEPARIN SOD 5,000 UNIT/0.5 ML VIAL SQ SCH ×2 (07:38→21:00)
[2022-10-16] MEDS: NORTRIPTYLINE HCL 10 MG CAP PO SCH ×2 (07:38→21:01)
[2022-10-16] MEDS: SPIRONOLACTONE 25 MG TAB PO SCH (07:38)
[2022-10-16] MEDS: carvediloL 25 MG TAB PO SCH ×2 (07:38→21:00)
[2022-10-16] MEDS: TACROLIMUS 1 MG CAP PO SCH ×2 (07:39→21:00)
--- NOTE | 2022-10-16 10:31 | Hospitalist Progress Note ---
Date of Service October 16, 2022 Assessment & Plan (1) Hypertensive urgency: Plan: Initial BPs up to 240s/130s and improved to 180s/100s after Labetalol 10mg IV x1 - ~25% decrease in presenting blood pressures which is appropriate as acute goal for tonight. Patient does have FADUMO (see below) but this may also be due to ? late kidney transplant rejection rather than effect of malignant hypertension. Patient is otherwise asymptomatic. - contact provider for SBP >200 and/or dBP >120 - continue home Carvedilol 25mg PO BID - Spironolactone increased to 50mg PO daily by nephrology - Amlodipine started on 10/15 - she was prescribed 5mg PO daily as outpatient but it was never picked up (2) Acute kidney injury: Plan: Cr 2.71, baseline has been 1.5 - 2.0, and has increased from 2.5 several days ago. May be in context of malignant hypertension but may also be sign of late kidney transplant rejection. Patient has no pulmonary edema, oliguria or AMS. - BP control as stated above - Nephrology consulted - appreciate input - trend BMP in AM - remains at 2.67 on 10/15 (essentially unchanged) (3) Kidney transplant recipient: Plan: H/o right renal transplant 18 years ago due to polycystic kidney disease, per patient report. Follows with [facility] Nephrology. - continue home Tacrolimus and Bactrim M/W/F ppx - appreciate Nephrology recs - note: patient's primary Student Support Counselor (Dr. Mcdowell in [facility], transplant co- ordinator number: [phone]) initially concerned for possible late rejection. Discussed with her primary clamp forklift operator today and recommend blood pressure optimization alone, unlikely they would perform renal biopsy. - Tacrolimus level not taken at correct time, re-ordered for AM. (4) Migraine headache: Plan: Chronic, no headache currently. Continue home Nortriptyline. (5) Anxiety: Plan: Chronic, continue home Ativan. Plan FEN/GI: regular diet DVT Prophylaxis: Heparin SQ Code Status: full code Disposition: stable for downgrade to med/surg as BP/Cr improving Admission and Anticipated Discharge Date Admission Date: October 13, 2022 Subjective Patient asymptomatic. Discussed care with Dr Espino at bedside. Discussed case with [facility] nephrology transplant both Dr Dale (mailing section clerk) and Dr Mcdowell (who saw her recently in the outpatient clinic and prescribed (although she never picked up) amlodipine. Given she is so far out from her renal biopsy recommend workup for secondary causes of hypertension and blood pressure control alone. Review of Systems Review of Systems: All systems reviewed & are unremarkable except as noted in Subjective Physical Exam Constitutional: WD/WN, vitals as above Respiratory: normal respiratory effort, lungs clear to auscultation Cardiovascular: RRR, no murmur, no edema Gastrointestinal (Abdomen): normal bowel sounds, soft, nontender, no hepatosplenomegaly Skin: no rashes, warm and dry Psychiatric: A+Ox3, euthymic affect Genitourinary: no CVA tenderness Results & Data Results & Data ([facility]) Vital Signs (Past 12 Hours) Vital Signs Temp Pulse Pulse Resp BP BP Pulse Ox 10/16/22 08:26 36.6 C 73 17 164/104 H 96 10/16/22 03:18 36.9 C 80 18 165/106 H 96 10/16/22 01:27 76 169/107 H 10/16/22 01:20 94 H 172/107 H 10/16/22 00:23 97 H O2 Del Method 10/16/22 08:26 Room Air 10/16/22 03:18 Room Air 10/16/22 01:27 10/16/22 01:20 10/16/22 00:23 PG Care Time/CCT Total # of Minutes Spent Total Time Spent with Patient: Total time spent is greater than 50% in coordination of care (as documented) at patient's floor/unit and/or counseling patient: Coding Level of Care Code 74490 Subseq Hosp Care Lvl 3 Diagnoses Hypertensive urgency I16.0 Acute kidney injury N17.9 Kidney transplant recipient Z94.0 Migraine headache G43.909 Anxiety F41.9
--- NOTE | 2022-10-16 10:57 | Nephrology Progress Note ---
Date of Service October 16, 2022 Assessment & Plan (1) Hypertensive urgency: Plan: * SBP improved on Carvedilol, Amlodipine and low dose Spironolactone * 03/30 Renal US included doppler of SHAREMILKER artery - no EDWIN reported * Continue current medical regimen (2) Acute kidney injury: Plan: * Serum Cr had been 1.7 - 2.0 up until 08/30 depending upon hydration status * Losartan has been held due to FADUMO * UPCR has risen to 1.5 * Urine microscopy is negative for blood, WBC or cellular casts * Tacrolimus level higher than expected, but not a trough value * Discussed w/ patient the need to improve BP control. Agree w/ her transplant Statement Distribution Clerk that biopsy is needed to assess for chronic rejection once BP is controlled. Miss Will is agreeable to transfer to [facility] for renal biopsy and ongoing management. Hospitalist service will coordinate transfer. 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 Baseline Cr 1.6 - 2.0 (depending upon hydration status) * Immunosuppressive regimen consists only of Tacrolimus 3mg po qAM/2mg po qPM Admission and Anticipated Discharge Date Admission Date: October 13, 2022 Subjective Adamant to leave the hospital. "Take the IV out, you aren't doing anything!" Review of Systems Eyes: no problem reported Respiratory: no cough and no dyspnea Cardiovascular: no chest pain Gastrointestinal: no abdominal pain, no vomiting and no diarrhea/loose stools Neurologic: no confusion Physical Exam Constitutional: not in distress Eyes: PERRL, conjunctivae normal, anicteric sclerae ENMT: external ear and nose normal, oropharynx normal Neck: trachea midline, no thyromegaly Respiratory: normal respiratory effort, lungs clear to auscultation Cardiovascular: RRR, no murmur, no edema Vessels: no JVD, no carotid bruit and no renal bruit (over transplant allograft) Gastrointestinal (Abdomen): normal bowel sounds, soft, nontender, no hepatosplenomegaly Neurologic: Speech / Cognition: normal speech Motor/Sensory: normal movement Cranial Nerves: PERRL Psychiatric: Affect: + depressed affect Results & Data ([place]) Vital Signs (Past 12 Hours) Vital Signs Temp Pulse Pulse Resp BP BP Pulse Ox 10/16/22 08:26 36.6 C 73 17 164/104 H 96 10/16/22 03:18 36.9 C 80 18 165/106 H 96 10/16/22 01:27 76 169/107 H 10/16/22 01:20 94 H 172/107 H 10/16/22 00:23 97 H O2 Del Method 10/16/22 08:26 Room Air 10/16/22 03:18 Room Air 10/16/22 01:27 10/16/22 01:20 10/16/22 00:23 Laboratory Results Laboratory Tests 10/13/22 10/16/22 10/16/22 18:48 06:25 06:25 WBC 7.39 Hgb 11.4 L Hct 32.7 L Plt Count 173 Sodium 139 Potassium 4.4 Chloride 108 H Carbon Dioxide 26 BUN 23 Creatinine 2.67 H Glucose 92 Albumin 3.5 Tacrolimus 13.3 PG Care Time/CCT Total # of Minutes Spent Total Time Spent with Patient: Total time spent is greater than 50% in coordination of care (as documented) at patient's floor/unit and/or counseling patient: Coding Level of Care Code 12711 Subseq Hosp Care Lvl 3 Diagnoses Hypertensive urgency I16.0 Acute kidney injury N17.9 History of kidney transplant Z94.0
[2022-10-16] MEDS: LORazepam 0.5 MG TAB PO PRN (13:55)
[2022-10-16] MEDS ORDERED: amLODIPine BESYLATE 5 MG TAB PO SCH (21:00)
[2022-10-17 06:45] LABS: Hematocrit (blood only) 35.2 % (34.1-44.9); Hemoglobin 12.4 g/dl (12.0-16.0); Mean Corpuscular Hemoglobin 31.8 pg (25.0-34.0); Mean Corpuscular Hgb Conc 35.2 g/dL (32.0-36.0); Mean Corpuscular Volume 90.3 fL (80.0-100.0); Mean Platelet Volume 10.6 fL (9.4-12.3); Platelet Count 185 K/uL (130-400); RDW Coefficient of Variation 12.4 % (11.5-14.5); RDW Standard Deviation 41.1 fL (36.4-46.3); White Blood Count 8.94 K/ul (4.8-10.8)
[2022-10-17 07:09] LABS: BUN Creatinine Ratio 8.2 (10-20); Calcium 9.7 mg/dl (8.5-10.1); Creatinine Clr Calc Pharmacy 25.7 ml/min; Est GFR (African American) 24.5 ml/min; Est GFR (Non-African American) 21.2 ml/min; Potassium 4.6 mmol/L (3.5-5.1)
--- NOTE | 2022-10-17 08:55 | Nephrology Progress Note ---
Date of Service October 17, 2022 Assessment & Plan (1) Hypertensive urgency: Plan: * SBP now acceptable on Carvedilol 12.5 mg BID, Amlodipine 5 mg BID and Spironolactone 25 mg qAM * 03/30 Renal US included doppler of LAUNDRETTE OWNER artery - no EDWIN reported * Hospitalist note reviewed. Patient did not take Amlodipine as prescribed following last hospitalization. Discussed importance of medication adherance * If discharge is anticipated, please have patient follow up in my office in 10 - 14 days. I have placed order in EMR to have nonfasting blood work completed 24 hours prior to visit (2) Acute kidney injury: Plan: * Serum Cr had been 1.7 - 2.0 up until 08/30 depending upon hydration status * Losartan has been held due to FADUMO * UPCR has risen to 1.5 * Urine microscopy is negative for blood, WBC or cellular casts * Tacrolimus trough level drawn this am. Will follow up as outpatient * Discussed w/ patient today that renal function is declining. Encouraged outpatient follow up w/ [facility] Dept of Transplantation. Briefly discussed the need for vascular access creation once Cr > 3.0 and potential need to resume IHD within the near future. 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 Baseline Cr 1.6 - 2.0 (depending upon hydration status) * Immunosuppressive regimen consists only of Tacrolimus 3mg po qAM/2mg po qPM Admission and Anticipated Discharge Date Admission Date: October 13, 2022 Subjective Miss Will was evaluated in her hospital room this morning. She denied SALAZAR, visual change, angina, dyspnea, LE swelling or pain/tenderness overlying her renal allograft. She is anxious to return home Review of Systems Eyes: no problem reported Respiratory: no cough and no dyspnea Cardiovascular: no chest pain Gastrointestinal: no abdominal pain, no vomiting and no diarrhea/loose stools Neurologic: no confusion Physical Exam Constitutional: not in distress Eyes: PERRL, conjunctivae normal, anicteric sclerae ENMT: external ear and nose normal, oropharynx normal Neck: trachea midline, no thyromegaly Respiratory: normal respiratory effort, lungs clear to auscultation Cardiovascular: RRR, no murmur, no edema Vessels: no JVD, no carotid bruit and no renal bruit (over transplant allograft) Gastrointestinal (Abdomen): normal bowel sounds, soft, nontender, no hepatosplenomegaly Neurologic: Speech / Cognition: normal speech Motor/Sensory: normal movement Cranial Nerves: PERRL Psychiatric: Affect: + depressed affect Results & Data ([facility]) Vital Signs (Past 12 Hours) Vital Signs Temp Pulse Pulse Resp BP Pulse Ox O2 Del Method 10/17/22 08:11 36.7 C 78 18 145/94 H 96 Room Air 10/16/22 22:42 87 161/89 H 10/16/22 20:57 36.7 C 89 18 169/116 H 96 Room Air Laboratory Results Laboratory Tests 10/16/22 10/17/22 10/17/22 06:25 06:11 06:11 WBC 8.94 Hgb 12.4 Hct 35.2 Plt Count 185 Sodium 138 Potassium 4.6 Chloride 107 Carbon Dioxide 26 BUN 22 Creatinine 2.67 H Glucose 88 Calcium 9.7 Albumin 3.5 PG Care Time/CCT Total # of Minutes Spent Total Time Spent with Patient: Total time spent is greater than 50% in coordination of care (as documented) at patient's floor/unit and/or counseling patient: Coding Level of Care Code 41248 Subseq Hosp Care Lvl 3 Diagnoses Hypertensive urgency I16.0 Acute kidney injury N17.9 History of kidney transplant Z94.0
[2022-10-17] MEDS: amLODIPine BESYLATE 5 MG TAB PO SCH (09:01)
[2022-10-17] MEDS: NORTRIPTYLINE HCL 10 MG CAP PO SCH (09:01)
[2022-10-17] MEDS: HEPARIN SOD 5,000 UNIT/0.5 ML VIAL SQ SCH (09:01)
[2022-10-17] MEDS: SPIRONOLACTONE 25 MG TAB PO SCH (09:01)
[2022-10-17] MEDS: carvediloL 25 MG TAB PO SCH (09:01)
[2022-10-17] MEDS: TACROLIMUS 1 MG CAP PO SCH (09:02)
--- NOTE | 2022-10-17 15:24 | Discharge Summary ---
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 Patient presented to [facility] ED on 10/13 for worsening kidney function and hypertension. She reports that she was sent by primary Regulatory Compliance Manager at [facility] for this. Of note patient reports that she had labs done at [facility] 2 days ago and had Cr of 2.5 (up to 2.7 in our ED). Patient denies headache, blurry vision, chest pain, SOB, hematuria or LE edema. She has had adequate urine output without changes. She does have chronic migraines (managed by [facility] Neurology - recently started on Nortriptyline) with migraines occurring several times per month, but none for last several days. Patient denies recent illness or decreased PO intake. Of note patient's primary picture enlarger is Dr. Mcdowell at [facility], and she recommended that patient be admitted for blood pressure control and did mention plans for outpatient renal biopsy due to concern for rejection. Patient last saw [facility] Nephrology (Dr. Espino) on 08/25 and had Losartan increased from 25 to 50mg at that time. Patient reports that she takes all of her medications regularly but her HTN medications have "not been working". In ED patient was hypertensive to 240s/130s. Labs significant for BUN 27/Cr 2.71 (baseline Cr 1.5 - 2 since 04/2022). Tacrolimus level collected and pending. COVID-19 negative. CXR unremarkable. UA pending. Patient received Ativan 1mg SL x1 as well as Labetalol 10mg IV x1. BP improved to ~180/100 one hour after Labetalol. Discharge Data Allergies Allergy/AdvReac Type Severity Reaction Status Date / Time tramadol Allergy Intermediate ITCHING Verified 10/13/22 22:23 Consultations 10/13/22 20:51 ED Decision to Admit Stat 10/14/22 00:50 Consult Nephrology Routine Ordered Studies 10/13/22 21:59 US renal transplant w dop Urgent Hospital Course (1) Hypertensive urgency: Initial BPs up to 240s/130s and improved to 180s/100s after Labetalol 10mg IV x1 - ~25% decrease in presenting blood pressures which is appropriate as acute goal for tonight. Patient does have FADUMO (see below) but this may also be due to ? late kidney transplant rejection rather than effect of malignant hypertension. Patient is otherwise asymptomatic. - contact provider for SBP >200 and/or dBP >120 - continue home Carvedilol 25mg PO BID - Spironolactone increased to 50mg PO daily by nephrology - Amlodipine started on 10/15 - she was prescribed 5mg PO daily as outpatient but it was never picked up (2) Acute kidney injury: Cr 2.71, baseline has been 1.5 - 2.0, and has increased from 2.5 several days ago. May be in context of malignant hypertension but may also be sign of late kidney transplant rejection. Patient has no pulmonary edema, oliguria or AMS. - BP control as stated above - Nephrology consulted - appreciate input - trend BMP in AM - remains at 2.67 on 10/15 (essentially unchanged) (3) Kidney transplant recipient: H/o right renal transplant 18 years ago due to polycystic kidney disease, per patient report. Follows with [facility] Nephrology. - continue home Tacrolimus and Bactrim M/W/F ppx - appreciate Nephrology recs - note: patient's primary Regulatory Compliance Manager (Dr. Mcdowell in [facility], transplant co- ordinator number: [phone]) initially concerned for possible late rejection. Discussed with her primary picture enlarger today and recommend blood pressure optimization alone, unlikely they would perform renal biopsy. - Tacrolimus level not taken at correct time, re-ordered for AM. (4) Migraine headache: Chronic, no headache currently. Continue home Nortriptyline. (5) Anxiety: Chronic, continue home Ativan. Plan FEN/GI: regular diet DVT Prophylaxis: Heparin SQ Code Status: full code Disposition: stable for downgrade to med/surg as BP/Cr improving Discharge Plan Discharge Items Patient Disposition: Home - Self-Care Reason For Visit: HYPERTENSIVE URGENCY, FADUMO Discharge Diagnosis: Hypertensive emergency, Acute renal failure Activity: Resume your previous activity Non-emergency contact: Regulatory Compliance Manager Call non-emergency contact if: you have any medication questions and your symptoms worsen Follow-up/Referrals: Sai Espino MD [Physician] - 10/23/22 11:00 am (10-14 days hospital follow up) PCP,NO [Primary Care Provider] - Diet: Regular Addtl Attending Provider Instructions: You were admitted to [facility] from October 13 - 2021 due to acute renal failure from high blood pressure. Your blood pressure control was improved using increased dosing of spironolactone and amlodipine. Losartan was discontinued due to acute renal failure. Please continue on your new blood pressure regimen as prescribed below. Your magnesium levels have also been low and recommend starting supplementation for this. Please follow up with your transplant team in [place] in addition to Dr Espino locally for ongoing management of your Chronic kidney disease stage 4. Pending Studies at Discharge: Yes (tacrolimus level to be followed up by nephrology) Stand-Alone Forms: My [facility], Smoking Cessation Medications and DC Order Prescriptions: New amlodipine [Norvasc] 5 mg Tablet 5 mg PO BID Qty: 60 0RF spironolactone 25 mg Tablet 50 mg PO QAM Qty: 60 0RF magnesium oxide 200 mg magnesium tablet 200 mg PO BID Qty: 60 0RF Continued lorazepam 0.5 mg tablet 0.5 mg PO DAILY PRN (Reason: anxiety) Qty: 10 0RF carvedilol 25 mg tablet 25 mg PO Q12H Qty: 60 5RF nortriptyline 10 mg capsule 10 mg PO Q12H Qty: 60 5RF tacrolimus 1 mg capsule See Rx Instructions PO .COMPLEX Qty: 1 0RF Rx Instructions: Take 3 tablets AM, 2 tablets PM PO; 12 hours apart sulfamethoxazole-trimethoprim 400-80 mg tablet 1 tab PO [id number] Rx Instructions: THURSDAY//THURSDAY/THURSDAY Discontinued losartan 25 mg tablet 25 mg PO BID Qty: 60 5RF amlodipine 5 mg tablet 5 mg PO DAILY Discharge Orders: Discharge Order (Routine); Ordered 10/17/22 Ordered By: Mahad Mckee Admission Data Admit Date/Time: 10/13/22 21:59 Attending Provider: Mahad Mckee Admit Provider: Rodrigue Newman Primary Care Provider: PCP,NO Other Providers: Rashid Maxwell ; Sai Espino Other Interventions: Discharge Summary Assessment (RN) Last Done: 10/17/22 14:57 Coding Diagnoses Hypertensive urgency I16.0 Acute kidney injury N17.9 Kidney transplant recipient Z94.0 Migraine headache G43.909 Anxiety F41.9
== END 2022-10-17 15:57 | disposition home or self-care (01) | DRG 305 ==
LOC: ED 18:11 → SUATTDRO 21:59 → EDINP 21:59 → 2S 10-14 00:51 → 3N 10-16 17:18

== ENCOUNTER 2024-04-28 13:18 | Inpatient (IN) ==
[2024-04-28] MEDS: SODIUM CHLORIDE 0.9% 1,000 ML IV SCH ×2 (14:22→16:57)
--- NOTE | 2024-04-28 14:22 | Emergency Department Note ---
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 Additional past medical history includes hypertension, migraine disorder, B12 and iron deficiency anemia, ADHD, anxiety, prediabetes, subclinical hypothyroidism, among other chronic medical problems. Patient was referred to the ED by her transplant team for evaluation of an elevated creatinine. She had blood work done yesterday. She reports that she was told her creatinine was 3.4. She was referred to the ED for "IV fluids." Patient was just in [place] and saw her transplant team last month. She states that they decreased her dose of amlodipine because she was having problems with lower extremity swelling. Patient otherwise reports she is been compliant with her medications. She reports feeling fatigued, and attributes this to her anemia. She is not currently on any iron or B12 replacement. She denies headache, lightheadedness or dizziness. No nausea or vomiting. No abdominal or flank pain. There is no pain over her transplanted kidney site. She is urinating well. No stool changes. Menses have been normal. Denies chance of . Home Medications Medication Instructions Recorded Confirmed Type lorazepam 0.5 mg tablet 0.5 mg PO DAILY PRN anxiety #10 03/11/23 04/28/24 Rx tabs tacrolimus 1 mg capsule, 2 mg PO Q12H 02/29/24 04/28/24 History immediate-release nortriptyline 10 mg capsule 10 mg PO Q12H #60 caps 03/18/24 04/28/24 Rx amlodipine 5 mg tablet (Norvasc) 2.5 mg PO DAILY 04/28/24 04/28/24 History carvedilol 25 mg tablet 25 mg PO BID 04/28/24 04/28/24 History spironolactone 25 mg tablet 50 mg PO DAILY 04/28/24 04/28/24 History sulfamethoxazole 400 1 tab PO .3X WEEK 04/28/24 04/28/24 History mg-trimethoprim 80 mg tablet Allergies Allergy/AdvReac Type Severity Reaction Status Date / Time tramadol Allergy Intermediate ITCHING Verified 02/29/24 12:26 Past Med/Surg History Problem List (Updated 04/28/24 @ 18:10 by Layne Dewey) Hypomagnesemia (Acute) DVT prophylaxis Deficiency of nutrient elements Acute renal failure Screen for STD (sexually transmitted disease) Vulvar itching Kidney transplant recipient (Acute) Genital warts Encounter for annual routine gynecological examination Encounter for counseling regarding contraception Abnormal uterine bleeding (AUB) Migraine with aura Acute kidney injury (Acute) Demyelinating changes in brain Hypertension (Acute) CKD (chronic kidney disease) B12 deficiency Anemia Cephalic vein thrombosis (Acute) ADHD Chronic low back pain Condyloma acuminatum EIC (epidermal inclusion cyst) Irregular menstrual cycle Myalgia and myositis, unspecified Subclinical hypothyroidism Vitamin D deficiency Pulmonary nodules (07/20/19) Multiple pulmonary nodules, measuring up to 3mm. High risk (smoker). Per Fleischner society guidelines. F/U due 07/2020. Multinodular thyroid (09/27/17) Incidentally noted on Carotid US for ER visit 1.9cm nodule on the right is solid-appearing with mild associated flow on color Doppler and also associated small calcification. Cervical CT scan 07/20/19 multiple nodules noted on right lobe, measuring up to 13mm. Patient did not show for Thyroid US 12/12/19. Mass of right ear canal Has no children Kidney disease Lethargy Anxiety SOB (shortness of breath) (Acute) Hypomagnesemia (Acute) Hyponatremia Prediabetes Medical History Hypertensive urgency Arm paresthesia, left Tobacco abuse Chronic renal failure, stage 3a Plantar fasciitis of left foot Nicotine dependence Depression with anxiety alcohol syndrome FHx unknown. Adopted. Possible alcohol syndrome AVF (arteriovenous fistula) (~11/2004) Ligated 04/14 Concussion Hypothyroidism Trichomonal vulvovaginitis Hypertension Iron deficiency anemia Declined GI work up. 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 Post transplant Cr ~ 1.3. On chronic immunosuppression therapy (Prograf). Family History Other Adopted Family history unknown Social History Smoking Status: Never smoker Cigarettes Per Day: 5; Second Hand Exposure: Yes; Do You Dip or Chew Tobacco: No; Hx Alcohol Use: No Hx Substance Use: No Preferred Language: Armenian Communication Ability: Effective Call Center Professional Required: No Beliefs That Will Affect Care: None marital status: Single Current Living Situation: Significant Other current occupational status: employed current occupation: [employer] Feels Safe at Home: Yes Assistive Devices: None Review of Systems A total of 10 systems reviewed and were otherwise negative Physical Exam Vital Signs Vital Signs - 24 hr 04/28/24 13:27 Temperature 36.8 C Temperature Source Skin Pulse Rate 83 Respiratory Rate 20 Respiratory Effort / Characteristics Non-Labored Spontaneous Respiratory Depth Normal Blood Pressure 142/93 H Blood Pressure Mean 109 Pulse Oximetry 99 Sepsis Recent Fever Within 48 Hours No Sepsis New/Unexplained Change in Mental Status N/A Sepsis Action Taken by Nursing No Action Required CONSTITUTIONAL: Well-appearing 43-year-old female in no acute distress laying on the gurney. EYES: Pupils equal, round, reactive to light and accommodation. EOMs intact without nystagmus. Sclera are anicteric. ENT: Tympanic membranes intact, with normal landmarks. External canals are clear. Oral and nasopharynx are clear. Mucous membranes are moist, no lesions, tongue and gums appear normal. CARDIOVASCULAR: Regular rate and rhythm. Peripheral pulses easy to palpable. RESPIRATORY: Breath sounds equal and clear to auscultation. Full and equal chest expansion without accessory muscle use or retractions. GI: Bowel sounds are present. Well-healed surgical scar in the right lower abdomen. Abdomen is soft, nontender, nondistended. There is no localized tenderness in the right lower quadrant over the transplanted kidney. No guarding or rebound. MUSCULOSKELETAL: Full range of motion of extremities x 4 with good strength. No cyanosis, edema, joint tenderness or swelling. No deformity. INTEGUMENTARY: No lesions or rash, normal skin turgor. Course Course The patient was seen and assessed as above. External medical records were reviewed. She had blood work done just yesterday, noting BUN 24, creatinine 3.47, this is an increase from 2.42 on 03/30. GFR 15.3. Low mag, 1.6, iron and B12 levels were also low. A tacrolimus level is pending. IV lock was initiated. Repeat laboratory studies were ordered. She was hydrated with normal saline solution. Patient discussed with attending physician, Dr. Tracy. I was able to review the patient with Dr. Espino with nephrology. He recommended admission for IV hydration, trending renal functions, and recommended an ultrasound with Doppler of the transplanted kidney. IV lock was initiated. Patient was hydrated with normal saline solution. Laboratory studies collected including CBC with differential, CMP, lipase, serum hCG, urinalysis, magnesium and tacrolimus level. She was observed on monitoring and evaluation advisor. Diagnostics, as interpreted by me: Laboratory studies: Normal white count at 6100, no left shift noted. Mild, stable anemia, H&H 10.1 and 31.5 with normal indices, platelet count is 203,000. Electrolytes: Sodium 134, potassium 5.7, chloride 108, carbon dioxide 20, normal anion gap. BUN 27, creatinine 3.25. Magnesium 1.5. Transaminases are normal. Lipase is normal. test negative. Urine microscopy notes 3+ protein, but of is otherwise clear without signs of infection. Tacrolimus level is pending. Cardiac Monitoring: Cardiac monitoring: An order was placed for continuous cardiac monitoring. The monitor shows a NSR at a rate of 81 per my interpretation. Imaging studies: Ultrasound of the transplanted kidney note mild cortical atrophy, no hydronephrosis. Normal velocities in the renal artery. Venovenous patent. No perirenal fluid noted. All laboratory and diagnostic imaging studies were discussed with the patient. After review of the information above and other included data, I feel the patient requires admission for further care and management. She was in agreement. Patient reviewed the ED shelter case manager, and discussed with Dr. Valle with the [facility] Hospitalist Service. Differential diagnosis: Electrolyte or metabolic abnormality, dehydration, FADUMO, medication noncompliance, failure of transplanted kidney, rejection, among other. Administered Medications Discontinued Medications Sodium Chloride (Nss) 1,000 mls @ 999 mls/hr IV .Q1H1M FLOR Stop: 04/28/24 15:11 Last Infusion: 04/28/24 16:04 Dose: Infused Documented By: Admin: 04/28/24 14:22 Dose: 999 mls/hr Documented By: DYLAN Sodium Chloride (Nss) 1,000 mls @ 250 mls/hr IV .Q4H FLOR Stop: 05/28/24 14:14 Last Admin: 04/28/24 16:57 Dose: 250 mls/hr Documented By: AARON Medical Decision Making Differential Diagnosis See ED course. Medical Records Attestation: I reviewed the patient's medical records. Home Medications Current Medication List: was personally reviewed by me Laboratory Data Attestation: I reviewed the patient's lab results. 04/28/24 14:00 04/28/24 15:10 Lab Results 04/28/24 Range/Units 14:00 WBC 6.18 (4.8-10.8) K/ul RBC 3.79 L (4.20-5.40) M/uL Hgb 10.1 L (12.0-16.0) g/dl Hct 31.5 L (37.0-47.0) % MCV 83.1 (80.0-100.0) fL MCH 26.6 (25.0-34.0) pg MCHC 32.1 (32.0-36.0) g/dL RDW Std Deviation 48.1 H (36.4-46.3) fL RDW Coeff of Shukri 15.9 H (11.5-14.5) % Plt Count 203 (130-400) K/uL MPV 11.3 (9.4-12.4) fL Immature Gran % (Auto) 0.2 % Neut % (Auto) 72.1 % Lymph % (Auto) 17.6 % [place] % (Auto) 5.3 % Eos % (Auto) 4.5 % Baso % (Auto) 0.3 % Neut # (Auto) 4.45 (1.40-6.50) K/uL Lymph # (Auto) 1.09 L (1.20-3.40) K/uL [place] # (Auto) 0.33 (0.11-0.59) K/uL Eos # (Auto) 0.28 (0.00-0.50) K/uL Baso # (Auto) 0.02 (0.00-0.20) K/uL Immature Gran # (Auto) 0.01 (0.01-0.20) K/uL PT Cancelled INR Cancelled Sodium 134 L (136-145) mmol/L Potassium TNP Chloride 108 H (98-107) mmol/L Carbon Dioxide 20 L (21-32) mmol/L Anion Gap 6 (3-11) BUN 27 H (6-23) mg/dl Creatinine 3.25 H (0.6-1.2) mg/dl Est Cr Clr Drug Dosing 20.9 ml/min Est GFR ( Amer) 19.2 ml/min Est GFR (Non-Af Amer) 16.6 ml/min BUN/Creatinine Ratio 8.3 L (10-20) Glucose 126 H (70-99(Fasting)) mg/dl Calcium 9.6 (8.6-10.3) mg/dl Magnesium 1.5 L (1.7-2.4) mg/dl Total Bilirubin 0.9 (0.2-1.0) mg/dl AST TNP ALT 12 (7-52) U/L Alkaline Phosphatase 50 (34-104) U/L Total Protein 6.8 (6.0-8.3) gm/dl Albumin 4.0 (3.4-5.0) gm/dl Globulin 2.8 (2.5-4.0) gm/dl Albumin/Globulin Ratio 1.4 (0.9-2) Lipase 31 (11-82) U/L HCG, Qual Negative (Negative) Imaging Data Attestation: I personally reviewed and interpreted this imaging study as follows: Radiologist's Impression: Renal Ultrasound 04/28/24 14:28 ULTRASOUND RENAL TRANSPLANT CLINICAL HISTORY: Elevated creatinine. COMPARISON STUDY: Renal transplant ultrasound dated 03/04/2023. TECHNIQUE: Multiple sainz scale, color Doppler, and spectral Doppler sonograms of the transplanted kidney were obtained in the transverse and longitudinal planes. FINDINGS: The transcend kidney is identified in the right pelvis. The transplant shows mild cortical atrophy, and measures 10.1 cm in length. Cortical echotexture is normal and there is no hydronephrosis. The resistive index in the segmental arterial branches ranges from 0.52 and 0.61 . The velocities within the main renal artery are within normal limits, measuring up to 107 cm/s. The main renal vein is patent. No perirenal fluid collection is seen. The bladder is normal as visualized. The zuni kidneys are markedly atrophic and echogenic. IMPRESSION: 1. The right pelvic renal transplant demonstrates mild cortical atrophy and is without hydronephrosis. 2. Normal velocities are shown in the transplanted renal artery. ACT 112: Negative or not required by law. Electronically signed by: Pranav Bey M.D. 04/28/2024 3:33 PM MDM Narrative See ED course. Impression & Plan Acute kidney injury, Hypomagnesemia Discharge Plan Visit Data Chief Complaint: Abdominal Pain Stated Complaint: KIDNEY DAMAGE ED Provider: Avtar Tracy ED Midlevel Provider: Layne Dewey Discharge Problem: Acute kidney injury, Hypomagnesemia Patient Disposition: Admitted As Inpatient Discharge Instructions Interventions: ED Discharge Assessment Last Done: 04/28/24 15:56
[2024-04-28 14:38] LABS: Basophils # (auto) 0.02 K/uL (0.00-0.20); Basophils % (auto) 0.3 %; Eosinophils # (auto) 0.28 K/uL (0.00-0.50); Eosinophils % (auto) 4.5 %; Hematocrit (blood only) 31.5 % (37.0-47.0); Hemoglobin 10.1 g/dl (12.0-16.0); Immature Granulocytes # (auto) 0.01 K/uL (0.01-0.20); Immature Granulocytes % (auto) 0.2 %; Lymphocytes # (auto) 1.09 K/uL (1.20-3.40); Lymphocytes % (auto) 17.6 %; Mean Corpuscular Hemoglobin 26.6 pg (25.0-34.0); Mean Corpuscular Hgb Conc 32.1 g/dL (32.0-36.0); Mean Corpuscular Volume 83.1 fL (80.0-100.0); Mean Platelet Volume 11.3 fL (9.4-12.4); Monocytes # (auto) 0.33 K/uL (0.11-0.59); Monocytes % (auto) 5.3 %; Neutrophils # (auto) 4.45 K/uL (1.40-6.50); Neutrophils % (auto) 72.1 %; Platelet Count 203 K/uL (130-400); RDW Coefficient of Variation 15.9 % (11.5-14.5); RDW Standard Deviation 48.1 fL (36.4-46.3); Red Blood Count 3.79 M/uL (4.20-5.40); White Blood Count 6.18 K/ul (4.8-10.8)
[2024-04-28 14:49] LABS: Pregnancy Test, Serum Negative (Negative)
[2024-04-28 15:05] LABS: Alanine Aminotransferase 12 U/L (7-52); Albumin Globulin Ratio 1.4 (0.9-2); Alkaline Phosphatase 50 U/L (34-104); Anion Gap 6 (3-11); BUN Creatinine Ratio 8.3 (10-20); Bilirubin,Total 0.9 mg/dl (0.2-1.0); Blood Urea Nitrogen 27 mg/dl (6-23); Calcium 9.6 mg/dl (8.6-10.3); Carbon Dioxide 20 mmol/L (21-32); Chloride 108 mmol/L (98-107); Creatinine Clr Calc Pharmacy 20.9 ml/min; Est GFR (African American) 19.2 ml/min; Est GFR (Non-African American) 16.6 ml/min; Globulin 2.8 gm/dl (2.5-4.0); Glucose 126 mg/dl (70-99(Fasting)); Lipase 31 U/L (11-82); Magnesium 1.5 mg/dl (1.7-2.4); Sodium 134 mmol/L (136-145); Total Protein 6.8 gm/dl (6.0-8.3)
--- NOTE | 2024-04-28 15:34 | Ultrasound Report ---
ULTRASOUND RENAL TRANSPLANT CLINICAL HISTORY: Elevated creatinine. COMPARISON STUDY: Renal transplant ultrasound dated 03/04/2023. TECHNIQUE: Multiple sainz scale, color Doppler, and spectral Doppler sonograms of the transplanted kid yue were obtained in the transverse and longitudinal planes. FINDINGS: The transcend kidney is identified in the right pelvis. The transplant shows mild cortical atrophy, and measures 10.1 cm in length. Cortical echotexture is normal and there is no hydronephrosi s. The resistive index in the segmental arterial branches ranges from 0.52 and 0.61 . The velocities within the main renal artery are within normal limits, measuring up to 107 cm/s. The main renal vein is patent. No perirenal fluid collection is seen. The bladder is normal as visualized. The [place] kid neys are markedly atrophic and echogenic. IMPRESSION: 1. The right pelvic renal transplant demonstrates mild cortical atrophy and is without hydronephrosis . 2. Normal velocities are shown in the transplanted renal artery. ACT 112: Negative or not required by law. Electronically signed by: Pranav Bey M.D. 04/28/2024 3:33 PM
[2024-04-28 15:50] LABS: Appearance Urine Clear (Clear); Bacteria Urine Automated None Seen (None Seen); Bilirubin Urine Negative (Negative); Blood Urine Negative (Negative); Cast Urine Automated 0-2 /lpf (0-2); Color Urine Yellow; Glucose Urine UA Negative (Negative); Ketones Urine Negative (Negative); Leukocyte Esterase Urine Negative (Negative); Nitrite Urine Negative (Negative); Protein Urine 3+ (Negative); RBC Urine Automated 0-2 /hpf (0-2); Specific Gravity Urine 1.009 (1.000-1.030); Urobilinogen Urine Negative (Negative); WBC Urine Automated 0-5 /hpf (0-5); pH Urine 6.5 (4.5-7.5)
[2024-04-28 16:09] LABS: Potassium 5.7 mmol/L (3.5-5.1)
[2024-04-28 16:38] LABS: Prothrombin Time 10.7 Seconds (9.0-12.0)
[2024-04-28] MEDS ORDERED: ONDANSETRON INJ 2 MG/ML 2 ML VIAL IV PRN (17:13)
[2024-04-28] MEDS ORDERED: ACETAMINOPHEN 325 MG TAB PO PRN (17:13)
[2024-04-28] MEDS ORDERED: FLUCONAZOLE 50 MG TAB PO SCH ×2 (17:13)
[2024-04-28] MEDS ORDERED: MAGNESIUM HYDROXIDE SUSP 30 ML UDC PO PRN (17:13)
[2024-04-28] MEDS ORDERED: POLYETHYLENE (MIRALAX) 17 GM PACK PO PRN (17:13)
[2024-04-28] MEDS ORDERED: LORazepam 0.5 MG TAB PO PRN (17:13)
[2024-04-28] MEDS ORDERED: ALUMINUM/MAGNESIUM SUSP 30 ML UDC PO PRN (17:13)
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
[2024-04-28] MEDS: IRON SUCROSE 200 MG in 0.9 % SODIUM CHLORIDE 100 ML IV ONE (19:26)
[2024-04-28] MEDS: CYANOCOBALAMIN 1000 MCG/ML VIAL IM SCH (19:26)
[2024-04-28] MEDS: LACTATED RINGER'S 1,000 ML IV SCH (20:04)
[2024-04-28] MEDS: TACROLIMUS 1 MG CAP PO SCH (20:12)
[2024-04-28] MEDS: NORTRIPTYLINE HCL 10 MG CAP PO SCH (20:13)
[2024-04-28] MEDS: carvediloL 25 MG TAB PO SCH (20:13)
[2024-04-28] MEDS: HEPARIN SOD 5,000 UNIT/0.5 ML VIAL SQ SCH (20:13)
[2024-04-28] MEDS: TRIAMCINOLONE ACET 0.1% OINT 15 GM TUBE TOP SCH (20:15)
[2024-04-29] MEDS: amLODIPine BESYLATE 5 MG TAB PO SCH (07:32)
[2024-04-29] MEDS: CHOLECALCIFEROL 25 MCG (1000 UNITS) TAB PO SCH (07:36)
[2024-04-29 08:35] LABS: BUN Creatinine Ratio 8.6 (10-20); Calcium 9.5 mg/dl (8.6-10.3); Creatinine Clr Calc Pharmacy 26.6 ml/min; Est GFR (African American) 25.8 ml/min; Est GFR (Non-African American) 22.2 ml/min; Potassium 4.6 mmol/L (3.5-5.1)
[2024-04-29] MEDS: IRON SUCROSE 300 MG in SODIUM CHLORIDE 0.9% 250 ML IV ONE (10:41)
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
--- NOTE | 2024-04-29 19:51 | Billing Data ---
Date of Service April 29, 2024 Coding Level of Care Code 32506 IN/OBS DISCH 30 MIN/LESS
--- NOTE | 2024-04-29 19:51 | Discharge Summary ---
Discharge Summary Date of Service April 29, 2024 Principal Dx & Hospital Course #1 = Principal Diagnosis (1) Acute renal failure: Fortunately acutely appears to have been dehydration given how well she responded to IV fluids. Chronically nephrology is worried about some degree of chronic transplant rejectionrequires close and ongoing outpatient follow-up. BMP next week. Hold Bactrim for now per nephrology. (2) Chronic renal failure, stage 3a: (3) Deficiency of nutrient elements: Interestingly she is quite deficient in iron, B12, and a little bit deficient in vitamin D. She does not have a malabsorption syndrome that she knows of. Discussed that she used to get IV iron periodically (relates that she could not absorb it p.o.) but this somehow fell off over the years (we both suspect it was whenever her PCP left the office and she is never really anchored with a new continuity PCP since), as it relates to the B12 she does not recall ever being on oral supplementation, just that her levels were low. --> Given quite significant iron deficiency, and inability to absorb p.o., gave IV iron while inpatient, and we will set up with PCP and hopefully be able to continue IV iron as an outpatient --> given B12 is low and she feels fatigued, initiated replacement IM while she was in the hospital, but then switch to p.o. replacement, and follow-up levels in several months. If her levels do not rise, then she would certainly need ongoing parenteral B12 supplementation, but hopefully this will not be the case --> vitamin D deficiency obviously less concerning for malabsorption [facility] (4) DVT prophylaxis: heparin SQ Plan safe/stable for home Notes For Next Care Provider Medication Changes From Visit Gave 500 mg total IV iron while inpatient, initiating B12 supplementation p.o., vitamin D supplementation Admission HPI Per Admitting Provider Patient is a very pleasant 43-year-old female who was sent due to abnormal labs. She got routine follow-up labs yesterday, and her creatinine had bumped from a baseline in the low to mid twos to about 3.5when her labs were seen, she was asked to come to the hospital for further evaluation. Interestingly she has no complaints. No urinary symptoms, hide she notes her urine is clear and yellow. No fevers chills sweats body aches, she has a degree of chronic fatigue which she relates to her iron deficiency and B12 deficiency, but this is not new or different. No back or flank pain. No acute problems at allfeels in her normal state of health. In review of diet, it sounds like she drinks about 64 ounces of fluid outside of coffee daily, and has not increased her p.o. fluid intake this week. Discharge Exam in general she is awake alert oriented x 3 pleasant no distress. HEENT normocephalic atraumatic mucous membranes moist. Breathing unlabored no accessory muscle use good effort. Skin without rashes pallor or icterus. Neuro without focal deficits. Updated Medication List Medication Instructions Recorded Confirmed Type lorazepam 0.5 mg tablet 0.5 mg PO DAILY PRN anxiety #10 03/11/23 04/28/24 Rx tabs tacrolimus 1 mg capsule, 2 mg PO Q12H 02/29/24 04/28/24 History immediate-release nortriptyline 10 mg capsule 10 mg PO Q12H #60 caps 03/18/24 04/28/24 Rx amlodipine 5 mg tablet (Norvasc) 2.5 mg PO DAILY 04/28/24 04/28/24 History carvedilol 25 mg tablet 25 mg PO BID 04/28/24 04/28/24 History spironolactone 25 mg tablet 50 mg PO DAILY 04/28/24 04/28/24 History sulfamethoxazole 400 1 tab PO .3X WEEK 04/28/24 04/28/24 History mg-trimethoprim 80 mg tablet cholecalciferol (vitamin D3) 50 2,000 unit PO DAILY 3 months #30 04/29/24 Rx mcg (2,000 unit) tablet (Vitamin tabs D3) cyanocobalamin (vitamin B-12) 1,000 mcg PO DAILY #30 tabs 04/29/24 Rx 1,000 mcg tablet Hospital Stay Data Consultations 04/28/24 14:42 ED Decision to Admit Stat 04/28/24 17:13 Consult Nephrology Routine Diagnostic Imagining Performed 04/28/24 14:28 US renal transplant w dop Stat Pending Results Patient Have Any Pending Studies at Discharge: Yes (tacrolimus level) Discharge Instructions Given to Patient (Per Discharging Provider) acute renal failure - fortunately your numbers improved to just above your normal baseline range just with IV fluids overnight. while certainly we have a lot of possibilities any time your kidney numbers bump - the acute bump appears to have just been due to dehydration -as a "general rule" try to drink between 60-80oz of fluid a day; add another 5- 10 ounces an hour of exercise or per hour working outside in the heat -as an "arbitrary rule" probably add another 20 ounces a day when it's above 90 degrees (unless you're inside in the AC all day) --->as we discussed something like pedialyte could be quite reasonable for maybe as much as 20% of your fluid intake especially when it's really hot - definitely keep an open dialogue with your nephrology team on that part, just because sometimes people's renal physiology post transplant can be a little differet ---> Dr Dent wanted you to hold off on the bactrim for the next week (it can raise your potassium when kidney function is off - so he's having you hold it to protect you from high potassium while things get back to "true baseline" with your kidney function) - and then you should have labwork next week // follow up next week (once the labs are back they'll instruct you on restarting the bactrim // if they don't definitely call the office to specifically ask about restarting it) *computer medication lists aren't always the most perfect science in the world: other than having you temporarily hold off on the bactrim (trimethoprim/sulfamethoxazole) we did not deliberately change any of your regular medications* deficiencies -iron deficiency - we've given you 500mg IV iron while here, and noting that you said you couldn't improve your numbers on oral iron before, we'll want you following with your PCP to get IV iron arranged again for the future. the 2 days of IV iron here will serve as a pretty solid "jumpstart" though -B12 deficiency - we gave you B12 shots here to be sure you're getting some, but as we discussed, unlike iron, most people with B12 deficiency can get levels up on oral replacement - just with a "big dose" -- the idea being if you absorb a small percent of what you take in, but you take in a lot, you can then absorb enough total (and B12 is water soluble so generally if you're taking in too much you pee the extra off) - we'd want levels again in ~4-6 months to ensure things are on their way up -- if they're not then you would switch over to B12 shots indefinitely --->while they're both common deficiencies and could just be incidental, the fact that you're low on both iron and B12 does raise the question of some other malabsorption syndrome (?celiac disease, or ?idiosyncracies of transplant recipient medications or physiology that are out of my knowledge base) -- we'll want your PCP and nephrology team to consider these options and look for any possible "root cause" that might be going on (knowing that there also might not actually be a unifying "root cause" and it might just be low levels that require replacement) -Vitamin D deficiency - this is pretty common in [facility] [place] add to it that people with chronic kidney disease tend to have low D levels and this one is "less of a mystery". take an over the counter 2000 IU vitamin D daily and then have repeat D levels when you get the repeat B12 levels checked Total Time Total Time Spent Total Time Spent (In Minutes): <30
[2024-04-29] MEDS ORDERED: TACROLIMUS 1 MG CAP PO SCH (21:00)
== END 2024-04-29 15:29 | disposition home or self-care (01) | DRG 699 ==
LOC: ED 13:18 → 3N 14:55

== ENCOUNTER 2025-05-19 12:17 | Inpatient (IN) ==
--- NOTE | 2025-05-19 12:31 | Emergency Department Note ---
Impression & Plan FADUMO (acute kidney injury), Acidosis ED Provider Note NAME: JONAS YOUNG AGE: 44 SEX: F : 1980 ARRIVES VIA: Walk-In INFORMANT: Patient ED PROVIDER(S): Ranjith Szymanski DO CHIEF COMPLAINT: Elevated creatinine HPI: Patient is a 44-year-old female with past medical history of a renal transplant 20 years ago at [facility] who presents to the ER for elevated creatinine. She notes she was told that it was 5.11 and was referred in to see Dr. Faulkner. She denies any headache or change in vision. No chest pain or shortness of breath. No nausea, vomiting, or diarrhea. She notes she is very stressed out as recently Denied second renal transplant and is working with exchange teller for this. No dysuria, urgency, or frequency. No other exacerbating or remitting factors. No vomiting or diarrhea. She otherwise feels normal but stressed. No pain over the kidney. ADDITIONAL HISTORY OBTAINED: Per HPI Chronic Medical/Social Conditions Affecting Care: Per HPI PAST MEDICAL HISTORY:See Below PAST SURGICAL HISTORY:See Below FAMILY HISTORY:See Below SOCIAL HISTORY:See Below HOME MEDICATIONS:See Below ALLERGIES:See Below VITALS:See Below PHYSICAL EXAMINATION: GENERAL: Sitting up in bed, alert, well appearing, well nourished, no distress, non-toxic EYE EXAM: normal conjunctiva. PERRL and EOM's intact. OROPHARYNX: no exudate, no erythema, lips, buccal mucosa, and tongue normal and mucous membranes are moist NECK: supple, no nuchal rigidity, no adenopathy, non-tender LUNGS: Clear to auscultation. Normal chest wall mechanics HEART: no murmurs, S1 normal and S2 normal ABDOMEN: abdomen soft, non-tender, normo-active bowel sounds, no masses, no rebound or guarding. UPPER EXTREMITIES: upper extremities are grossly normal. LOWER EXTREMITIES: No pitting edema. NEURO EXAM: Normal sensorium, cranial nerves II-XII intact, normal speech, no weakness of arms, no weakness of legs. MEDICAL DECISION MAKING: Patient is a 44-year-old female who presents ER referred in by nephrology for elevated creatinine. IV was established and blood work was obtained. Labs show no significant leukocytosis or anemia. BMP with a creatinine of 5 up from baseline of 2. Bicarb was low at 18. LFTs and bilirubin was unremarkable. Mag at 1.6. Lipase normal. UA was clean. Patient was given IV fluids. Discussed with nephrology. They are agreeable with admission. Discussed case with the hospitalist for further evaluation management treatment. Ultrasound was obtained Consults/Care Managements Discussions: Per [facility] Triage Nursing notes reviewed. Limited review of prior medical records performed Vital Signs: reviewed and remarkable for HTN Differential diagnosis: Infection, dehydration, metabolic abnormality, hypo/hyperglycemia, electrolyte disturbance, anemia, hypoxia, cardiac sources, intracerebral event, toxicologic, neurologic, as well as other pathologies. ER treatment provided: See below Diagnostics interpreted by me include EKG and cardiac monitoring as listed below: -Cardiac Monitoring: An order was placed for continuous cardiac monitoring. The monitor shows a rate of 80 with sinus rhythm. -ECG: none -Laboratory studies:Interpreted by me as stated above in MDM and shown below. Imaging studies: Xrays: As interpreted by me: Portable AP upright 1 view of the chest shows no focal infiltrate CTs show: none Renal ultrasound was unremarkable Procedures:none Critical Care: None Past Med/Surg History Problem List (Updated 05/19/25 @ 18:16 by Ranjith Szymanski DO) Acidosis (Acute) FADUMO (acute kidney injury) (Acute) Hypomagnesemia (Acute) Deficiency of nutrient elements Vulvar itching Kidney transplant recipient (Acute) Genital warts Abnormal uterine bleeding (AUB) Migraine with aura Acute kidney injury (Acute) Demyelinating changes in brain Hypertension (Acute) CKD (chronic kidney disease) (Acute) B12 deficiency Anemia Cephalic vein thrombosis (Acute) ADHD Chronic low back pain Condyloma acuminatum EIC (epidermal inclusion cyst) Irregular menstrual cycle Myalgia and myositis, unspecified Subclinical hypothyroidism Pulmonary nodules (07/20/19) Multiple pulmonary nodules, measuring up to 3mm. High risk (smoker). Per Fleischner society guidelines. F/U due 07/2020. Multinodular thyroid (09/27/17) Incidentally noted on Carotid US for ER visit 1.9cm nodule on the right is solid-appearing with mild associated flow on color Doppler and also associated small calcification. Cervical CT scan 07/20/19 multiple nodules noted on right lobe, measuring up to 13mm. Patient did not show for Thyroid US 12/12/19. Mass of right ear canal Anxiety Prediabetes Medical History Hypertensive urgency Arm paresthesia, left Tobacco abuse Chronic renal failure, stage 3a Plantar fasciitis of left foot Nicotine dependence Depression with anxiety alcohol syndrome FHx unknown. Adopted. Possible alcohol syndrome AVF (arteriovenous fistula) (~11/2004) Ligated 04/14 Concussion Hypothyroidism Trichomonal vulvovaginitis Hypertension Iron deficiency anemia Declined GI work up. 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 Post transplant Cr ~ 1.3. On chronic immunosuppression therapy (Prograf). Family History Other Adopted Family history unknown Social History Smoking Status: Never smoker Cigarettes Per Day: 5; Second Hand Exposure: No; Do You Dip or Chew Tobacco: No; Tobacco Cessation Education Requested by Patient: No Hx Alcohol Use: No Hx Substance Use: No Preferred Language: Danish Communication Ability: Effective Content Analyst Required: No Beliefs That Will Affect Care: None marital status: Single Current Living Situation: Alone Current Living Situation Comment: 3 story home, alone current occupational status: employed current occupation: [employer] Other Information That Helps Us Care for You: No Feels Safe at Home: Yes Safety Concerns: Feels Safe At This Time Childhood Exposure to Second-Hand Smoke: No Diet: regular caffeine: Yes Dental Care, Regularly: No Physical Activity Frequency: Does not Exercise Seatbelt Use: always Sunscreen Use: No Assistive Devices: Glasses Allergies Allergies Allergy/AdvReac Type Severity Reaction Status Date / Time tramadol Allergy Intermediate ITCHING Verified 05/19/25 14:32 Home Meds Home Medications Medication Instructions Recorded Confirmed sulfamethoxazole 400 1 tab PO 3XWK 04/28/24 05/19/25 mg-trimethoprim 80 mg tablet tacrolimus 1 mg capsule, 1 mg PO Q12H 12/05/24 05/19/25 immediate-release amlodipine 2.5 mg tablet 2.5 mg PO QAM 05/19/25 05/19/25 Previous Rx's Medication Instructions Recorded carvedilol 25 mg tablet 25 mg PO BID #180 tabs 06/06/24 iron sucrose 100 mg iron/5 mL 100 mg (5 mL) IV DAILY 3 doses 06/07/24 intravenous solution (Venofer) spironolactone 25 mg tablet 50 mg (2 x 25 mg) PO DAILY #60 tabs 01/10/25 nortriptyline 10 mg capsule 10 mg PO Q12H #60 caps 04/05/25 Results & Data (ED) Vital Signs Vital Signs - 24 hr 05/19/25 12:18 05/19/25 12:21 05/19/25 12:29 Temperature 36.5 C Temperature Source Temporal Artery Scan Pulse Rate 80 158 H Pulse Rate [Apical] 150 H Pulse Rhythm Regular Pulse Rhythm [Apical] Regular Pulse Strength [Apical] Normal Respiratory Rate 16 20 19 Respiratory Effort / Characteristics Non-Labored Spontaneous Non-Labored Spontaneous Respiratory Depth Normal Normal Respiratory Pattern Regular Blood Pressure 156/115 H Blood Pressure [Right Arm] 152/108 H Blood Pressure Mean 128 Blood Pressure Mean [Right Arm] 122 Blood Pressure Position [Right Arm] Sitting Pulse Oximetry 98 99 97 Oxygen Delivery Method Room Air Room Air Room Air Sepsis Recent Fever Within 48 Hours No Sepsis New/Unexplained Change in Mental Status No Sepsis Action Taken by Nursing No Action Required 05/19/25 12:36 05/19/25 14:18 Temperature Temperature Source Pulse Rate 82 Pulse Rate [Apical] 73 Pulse Rhythm Pulse Rhythm [Apical] Pulse Strength [Apical] Respiratory Rate 18 Respiratory Effort / Characteristics Respiratory Depth Respiratory Pattern Blood Pressure Blood Pressure [Right Arm] 152/112 H Blood Pressure Mean Blood Pressure Mean [Right Arm] 125 Blood Pressure Position [Right Arm] Sitting Pulse Oximetry 98 Oxygen Delivery Method Room Air Sepsis Recent Fever Within 48 Hours Sepsis New/Unexplained Change in Mental Status Sepsis Action Taken by Nursing Laboratory Data 05/19/25 12:35 05/19/25 12:35 Lab Results 05/19/25 05/19/25 Range/Units 12:35 13:54 WBC 5.18 (4.8-10.8) K/ul RBC 4.02 L (4.20-5.40) M/uL Hgb 12.7 (12.0-16.0) g/dl Hct 35.7 L (37.0-47.0) % MCV 88.8 (80.0-100.0) fL MCH 31.6 (25.0-34.0) pg MCHC 35.6 (32.0-36.0) g/dL RDW Std Deviation 43.8 (36.4-46.3) fL RDW Coeff of Shukri 13.4 (11.5-14.5) % Plt Count 200 (130-400) K/uL MPV 10.5 (9.4-12.4) fL Immature Gran % (Auto) 0.2 % Neut % (Auto) 65.2 % Lymph % (Auto) 17.6 % Hyde % (Auto) 6.8 % Eos % (Auto) 9.8 % Baso % (Auto) 0.4 % Neut # (Auto) 3.38 (1.40-6.50) K/uL Lymph # (Auto) 0.91 L (1.20-3.40) K/uL Hyde # (Auto) 0.35 (0.11-0.59) K/uL Eos # (Auto) 0.51 H (0.00-0.50) K/uL Baso # (Auto) 0.02 (0.00-0.20) K/uL Immature Gran # (Auto) 0.01 (0.01-0.20) K/uL Sodium 135 L (136-145) mmol/L Potassium 4.9 (3.5-5.1) mmol/L Chloride 108 H (98-107) mmol/L Carbon Dioxide 18 L (21-32) mmol/L Anion Gap 9 (3-11) BUN 28 H (6-23) mg/dl Creatinine 5.07 H* (0.6-1.2) mg/dl Est Cr Clr Drug Dosing 14.5 ml/min eGFR 10.16 BUN/Creatinine Ratio 5.5 L (10-20) Glucose 122 H (70-99(Fasting)) mg/dl Calcium 9.4 (8.6-10.3) mg/dl Magnesium 1.6 L (1.7-2.4) mg/dl Total Bilirubin 0.9 (0.2-1.0) mg/dl AST 14 (13-39) U/L ALT 10 (7-52) U/L Alkaline Phosphatase 75 (34-104) U/L Total Protein 7.5 (6.0-8.3) gm/dl Albumin 4.1 (3.4-5.0) gm/dl Globulin 3.4 (2.5-4.0) gm/dl Albumin/Globulin Ratio 1.2 (0.9-2) Lipase 61 (11-82) U/L Urine Color Yellow Urine Appearance Clear (Clear) Urine pH 5.5 (4.5-7.5) Ur Specific [place] 1.006 (1.000-1.030) Urine Protein 3+ H (Negative) Urine Glucose (UA) Negative (Negative) Urine Ketones Negative (Negative) Urine Blood Trace H (Negative) Urine Nitrite Negative (Negative) Urine Bilirubin Negative (Negative) Urine Urobilinogen Negative (Negative) Ur Leukocyte Esterase Negative (Negative) Urine WBC (Auto) 0-5 (0-5) /hpf Urine RBC (Auto) 0-2 (0-2) /hpf U Hyaline Cast (Auto) 0-2 (0-2) /lpf U Epithel Cells (Auto) 0-2 (0-2) /hpf Urine Bacteria (Auto) None Seen (None Seen) Ur Random Creatinine 53.0 mg/dl U Random Total Protein 169.4 H (0-11.9) mg/dl Protein/Creatinin Ratio 3.2 H (0-0.2) Urine Comment Administered Medications Sodium Bicarbonate 150 meq/ (Sterile Water) 1,150 mls @ 100 mls/hr IV .[id number] FLOR Stop: 06/18/25 13:29 Last Admin: 05/19/25 14:14 Dose: 100 mls/hr Documented By: TATO Discontinued Medications Sodium Chloride (Nss) 1,000 mls @ 999 mls/hr IV .[id number] ONE Stop: 05/19/25 13:31 Last Infusion: 05/19/25 14:00 Dose: 0 mls/hr Documented By: Admin: 05/19/25 12:43 Dose: 999 mls/hr Documented By: TATO Lorazepam (Lorazepam 2 Mg/1 Ml Vial) 0.5 mg IV NOW STA Stop: 05/19/25 12:33 Last Admin: 05/19/25 12:52 Dose: 0.5 mg Documented By: TATO Imaging Data Radiologist's Impression: Chest X-Ray 05/19/25 12:29 SINGLE VIEW CHEST CLINICAL HISTORY: Chest pain FINDINGS: An AP, portable, upright chest radiograph is compared to study dated 10/13/2022. The cardiomediastinal silhouette is unremarkable. The lungs and pleural spaces are clear. No pneumothorax is seen. The bony thorax is grossly intact. IMPRESSION: No active disease in the chest. ACT 112: Negative or not required by law. Electronically signed by: Pranav Bey M.D. 05/19/2025 1:09 PM Renal Ultrasound 05/19/25 12:55 ULTRASOUND RENAL TRANSPLANT CLINICAL HISTORY: Acute renal insufficiency. COMPARISON STUDY: Renal transplant ultrasound dated 04/28/2024. TECHNIQUE: Multiple sainz scale, color Doppler, and spectral Doppler sonograms of the transplanted kidney were obtained in the transverse and longitudinal planes. FINDINGS: The [place] kidneys are atrophic and echogenic consistent with medical renal disease. The transcend kidney is identified in the right pelvis. The transplant shows mild cortical atrophy, and measures cm in length. Cortical echotexture is normal. There is fullness of the collecting system without hydronephrosis. The resistive index in the segmental arterial branches ranges from 0.67 and 0.70. The velocities within the main renal artery within normal limits, measuring up to 63 cm/s. Velocities in the right iliac vein proximal to the transplant measures 95 cm second and distal to the transplant measure 50 cm/s. The main renal vein is patent. No perirenal fluid collection is seen. The bladder is decompressed and grossly unremarkable. The [place] kidneys are markedly atrophic and not well-visualized. IMPRESSION: 1. The right pelvic renal transplant demonstrates mild cortical atrophy and is without hydronephrosis. 2. Elevated intrarenal resistive indices can be seen in the setting of medical renal disease. Follow-up of with the patient's electrocardiograph operator is recommended. 3. Normal velocities are shown in the transplanted renal artery. ACT 112: Negative or not required by law. Electronically signed by: Pranav Bey M.D. 05/19/2025 2:33 PM Discharge Plan Visit Data Chief Complaint: Referred by Doctor Stated Complaint: HIGH CREATINE, REF BY NEPHROLOGY ED Provider: Ranjith Szymanski Discharge Problem: FADUMO (acute kidney injury), Acidosis Patient Disposition: Admitted As Inpatient Condition: Fair Discharge Instructions Interventions: ED Discharge Assessment Last Done: 05/19/25 16:41
[2025-05-19] MEDS: SODIUM CHLORIDE 0.9% 1,000 ML IV ONE (12:43)
[2025-05-19 12:47] LABS: Hematocrit (blood only) 35.7 % (37.0-47.0); Hemoglobin 12.7 g/dl (12.0-16.0); Immature Granulocytes # (auto) 0.01 K/uL (0.01-0.20); Immature Granulocytes % (auto) 0.2 %; Mean Corpuscular Hemoglobin 31.6 pg (25.0-34.0); Mean Corpuscular Volume 88.8 fL (80.0-100.0); Platelet Count 200 K/uL (130-400); RDW Standard Deviation 43.8 fL (36.4-46.3); Red Blood Count 4.02 M/uL (4.20-5.40); White Blood Count 5.18 K/ul (4.8-10.8)
[2025-05-19 13:07] LABS: Alanine Aminotransferase 10.0 U/L (7-52); Albumin Globulin Ratio 1.2 (0.9-2); Alkaline Phosphatase 75.0 U/L (34-104); Anion Gap 9.0 (3-11); Bilirubin,Total 0.9 mg/dl (0.2-1.0); Blood Urea Nitrogen 28.0 mg/dl (6-23); Calcium 9.4 mg/dl (8.6-10.3); Carbon Dioxide 18.0 mmol/L (21-32); Chloride 108.0 mmol/L (98-107); Creatinine Clr Calc Pharmacy 14.5 ml/min; Globulin 3.4 gm/dl (2.5-4.0); Glucose 122.0 mg/dl (70-99(Fasting)); Lipase 61.0 U/L (11-82); Potassium 4.9 mmol/L (3.5-5.1); Sodium 135.0 mmol/L (136-145); Total Protein 7.5 gm/dl (6.0-8.3)
--- NOTE | 2025-05-19 13:11 | XRay Report ---
SINGLE VIEW CHEST CLINICAL HISTORY: Chest pain FINDINGS: An AP, portable, upright chest radiograph is compared to study dated 10/13/2022. The cardiom ediastinal silhouette is unremarkable. The lungs and pleural spaces are clear. No pneumothorax is see n. The bony thorax is grossly intact. IMPRESSION: No active disease in the chest. ACT 112: Negative or not required by law. Electronically signed by: Pranav Bey M.D. 05/19/2025 1:09 PM
[2025-05-19] MEDS ORDERED: STAT IV/IM STA (13:29)
[2025-05-19 13:43] LABS: Magnesium 1.6 mg/dl (1.7-2.4)
[2025-05-19] MEDS: SODIUM BICARBONATE 8.4% 150 MEQ in WATER, STERILE 1,000 ML IV SCH (14:14)
[2025-05-19 14:15] LABS: Appearance Urine Clear (Clear); Bacteria Urine Automated None Seen (None Seen); Cast Urine Automated 0-2 /lpf (0-2); Epithelial Cell Urine Auto 0-2 /hpf (0-2); Glucose Urine UA Negative (Negative); RBC Urine Automated 0-2 /hpf (0-2); WBC Urine Automated 0-5 /hpf (0-5)
[2025-05-19 14:23] LABS: Total Protein Urine Random 169.4 mg/dl (0-11.9)
[2025-05-19 14:28] LABS: Protein Creatinine Ratio Urine 3.2 (0-0.2)
--- NOTE | 2025-05-19 14:34 | Ultrasound Report ---
ULTRASOUND RENAL TRANSPLANT CLINICAL HISTORY: Acute renal insufficiency. COMPARISON STUDY: Renal transplant ultrasound dated 04/28/2024. TECHNIQUE: Multiple sainz scale, color Doppler, and spectral Doppler sonograms of the transplanted terry turner were obtained in the transverse and longitudinal planes. FINDINGS: The hopi kidneys are atrophic and echogenic consistent with medical renal disease. The transcend kidney is identified in the right pelvis. The transplant shows mild cortical atrophy, a nd measures cm in length. Cortical echotexture is normal. There is fullness of the collecting system without hydronephrosis. The resistive index in the segmental arterial branches ranges from 0.67 and 0 .70. The velocities within the main renal artery within normal limits, measuring up to 63 cm/s. Veloc ities in the right iliac vein proximal to the transplant measures 95 cm second and distal to the hawkins splant measure 50 cm/s. The main renal vein is patent. No perirenal fluid collection is seen. The jayce dder is decompressed and grossly unremarkable. The hopi kidneys are markedly atrophic and not well- visualized. IMPRESSION: 1. The right pelvic renal transplant demonstrates mild cortical atrophy and is without hydronephrosis . 2. Elevated intrarenal resistive indices can be seen in the setting of medical renal disease. Follow- up of with the patient's service vehicle operator is recommended. 3. Normal velocities are shown in the transplanted renal artery. ACT 112: Negative or not required by law. Electronically signed by: Pranav Bey M.D. 05/19/2025 2:33 PM
--- NOTE | 2025-05-19 15:09 | History & Physical Report ---
Date of Service May 19, 2025 Assessment & Plan (1) Acute kidney injury: (2) Acidosis: (3) Hypomagnesemia: (4) Kidney transplant recipient: (5) Hypertension: (6) CKD (chronic kidney disease): Plan 44 year old female with renal transplant presents to the ER on advice of her hog ringer due to worsening Cr #FADUMO / non anion gap metabolic acidosis / CKD stage 4 / renal transplant recipient Historically improves with IV fluids but generally eGFR trending down for months / years UA + protein/Cr ratio Sodium bicarb 150 meq IV @ 100 ml/hr Repeat BMP in AM Hold Bactrim pending nephrology review although since she only takes this for prophylaxis x3/week Continue tacrolimus pending level on 05/17/2025 Consult nephrology - discussed with Dr Espino on admission #Hypertension Continue carvedilol, amlodipine and spironolactone (monitor closely for hyperkalemia) #Hypomagnesemia Mg level 1.6, Mg sulfate 1g IV, repeat level with AM labs #Vitamin D deficiency Noted on recent labs, start 1000 IU daily VTE Prophylaxis - SCDs, low risk Disposition - admit to med/tele Admission and Anticipated Discharge Date Admission Date: May 19, 2025 History of Present Illness Chief Complaint: Abnormal labs Primary Care Provider: Sai Espino MD Mary Will is a 44 year old female who presents to the ER on advice by her hog ringer due to worsening Cr. She has a renal transplant from 20 years ago maintained on tacrolimus but her Cr has slowly been getting worse over the years with repeated FADUMO episodes which tend to improve with intravenous fluids. She reports otherwise feeling well, drinks a lot of water to keep up with fluids. No acute concerns at this time. Allergies Allergy/AdvReac Type Severity Reaction Status Date / Time tramadol Allergy Intermediate ITCHING Verified 05/19/25 14:32 Home Medications Medication Instructions Recorded Confirmed Type sulfamethoxazole 400 1 tab PO 3XWK 04/28/24 05/19/25 History mg-trimethoprim 80 mg tablet carvedilol 25 mg tablet 25 mg PO BID #180 tabs 06/06/24 05/19/25 Rx iron sucrose 100 mg iron/5 mL 100 mg (5 mL) IV DAILY 3 doses 06/07/24 05/19/25 Rx intravenous solution (Venofer) tacrolimus 1 mg capsule, 1 mg PO Q12H 12/05/24 05/19/25 History immediate-release spironolactone 25 mg tablet 50 mg (2 x 25 mg) PO DAILY #60 tabs 01/10/25 05/19/25 Rx nortriptyline 10 mg capsule 10 mg PO Q12H #60 caps 04/05/25 05/19/25 Rx amlodipine 2.5 mg tablet 2.5 mg PO QAM 05/19/25 05/19/25 History Past Med/Surg History Problem List (Updated 05/19/25 @ 18:16 by Ranjith Szymanski DO) Acidosis (Acute) FADUMO (acute kidney injury) (Acute) Hypomagnesemia (Acute) Deficiency of nutrient elements [place] itching Kidney transplant recipient (Acute) Genital warts Abnormal uterine bleeding (AUB) Migraine with aura Acute kidney injury (Acute) Demyelinating changes in brain Hypertension (Acute) CKD (chronic kidney disease) (Acute) B12 deficiency Anemia Cephalic vein thrombosis (Acute) ADHD Chronic low back pain Condyloma acuminatum EIC (epidermal inclusion cyst) Irregular menstrual cycle Myalgia and myositis, unspecified Subclinical hypothyroidism Pulmonary nodules (07/20/19) Multiple pulmonary nodules, measuring up to 3mm. High risk (smoker). Per Fleischner society guidelines. F/U due 07/2020. Multinodular thyroid (09/27/17) Incidentally noted on Carotid US for ER visit 1.9cm nodule on the right is solid-appearing with mild associated flow on color Doppler and also associated small calcification. Cervical CT scan 07/20/19 multiple nodules noted on right lobe, measuring up to 13mm. Patient did not show for Thyroid US 12/12/19. Mass of right ear canal Anxiety Prediabetes Medical History Hypertensive urgency Arm paresthesia, left Tobacco abuse Chronic renal failure, stage 3a Plantar fasciitis of left foot Nicotine dependence Depression with anxiety alcohol syndrome FHx unknown. Adopted. Possible alcohol syndrome AVF (arteriovenous fistula) (~11/2004) Ligated 04/14 Concussion Hypothyroidism Trichomonal vulvovaginitis Hypertension Iron deficiency anemia Declined GI work up. 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 Post transplant Cr ~ 1.3. On chronic immunosuppression therapy (Prograf). Family History Other Adopted Family history unknown Social History Smoking Status: Never smoker Cigarettes Per Day: 5; Second Hand Exposure: No; Do You Dip or Chew Tobacco: No; Tobacco Cessation Education Requested by Patient: No Hx Alcohol Use: No Hx Substance Use: No Preferred Language: Macanese Communication Ability: Effective Information Writer Required: No Beliefs That Will Affect Care: None marital status: Single Current Living Situation: Alone Current Living Situation Comment: 3 story home, alone current occupational status: employed current occupation: [employer] Other Information That Helps Us Care for You: No Feels Safe at Home: Yes Safety Concerns: Feels Safe At This Time Childhood Exposure to Second-Hand Smoke: No Diet: regular caffeine: Yes Dental Care, Regularly: No Physical Activity Frequency: Does not Exercise Seatbelt Use: always Sunscreen Use: No Assistive Devices: Glasses Review of Systems Review of Systems: All systems reviewed & are unremarkable except as noted in HPI & below Physical Exam Constitutional: WD/WN, vitals as above ENMT: external ear and nose normal, oropharynx normal Respiratory: normal respiratory effort, lungs clear to auscultation Cardiovascular: RRR, no murmur, no edema Gastrointestinal (Abdomen): normal bowel sounds, soft, nontender, no hepatosplenomegaly Musculoskeletal: no cyanosis or clubbing, extremities motor strength 5/5 Skin: no rashes, warm and dry Neurologic: moves all extremities and awake; not confused Psychiatric: A+Ox3, euthymic affect Results & Data Results & Data Vital Signs (Past 12 Hours) Vital Signs Temp Pulse Pulse Resp BP BP Pulse Ox 05/19/25 14:18 73 18 152/112 H 98 05/19/25 12:36 82 05/19/25 12:29 158 H 19 97 05/19/25 12:21 36.5 C 80 20 156/115 H 99 05/19/25 12:18 150 H 16 152/108 H 98 O2 Del Method 05/19/25 14:18 Room Air 05/19/25 12:36 05/19/25 12:29 Room Air 05/19/25 12:21 Room Air 05/19/25 12:18 Room Air Laboratory Results Abnormal lab results 05/19/25 05/19/25 Range/Units 12:35 13:54 RBC 4.02 L (4.20-5.40) M/uL Hct 35.7 L (37.0-47.0) % Lymph # (Auto) 0.91 L (1.20-3.40) K/uL Eos # (Auto) 0.51 H (0.00-0.50) K/uL Sodium 135 L (136-145) mmol/L Chloride 108 H (98-107) mmol/L Carbon Dioxide 18 L (21-32) mmol/L BUN 28 H (6-23) mg/dl Creatinine 5.07 H* (0.6-1.2) mg/dl BUN/Creatinine Ratio 5.5 L (10-20) Glucose 122 H (70-99(Fasting)) mg/dl Magnesium 1.6 L (1.7-2.4) mg/dl Urine Protein 3+ H (Negative) Urine Blood Trace H (Negative) U Random Total Protein 169.4 H (0-11.9) mg/dl Protein/Creatinin Ratio 3.2 H (0-0.2) Diagnostic Findings SINGLE VIEW CHEST CLINICAL HISTORY: Chest pain FINDINGS: An AP, portable, upright chest radiograph is compared to study dated 10/13/2022. The cardiomediastinal silhouette is unremarkable. The lungs and pleural spaces are clear. No pneumothorax is seen. The bony thorax is grossly intact. IMPRESSION: No active disease in the chest. ULTRASOUND RENAL TRANSPLANT CLINICAL HISTORY: Acute renal insufficiency. COMPARISON STUDY: Renal transplant ultrasound dated 04/28/2024. TECHNIQUE: Multiple sainz scale, color Doppler, and spectral Doppler sonograms of the transplanted kidney were obtained in the transverse and longitudinal planes. FINDINGS: The nulato kidneys are atrophic and echogenic consistent with medical renal disease. The transcend kidney is identified in the right pelvis. The transplant shows mild cortical atrophy, and measures cm in length. Cortical echotexture is normal. There is fullness of the collecting system without hydronephrosis. The resistive index in the segmental arterial branches ranges from 0.67 and 0.70. The velocities within the main renal artery within normal limits, measuring up to 63 cm/s. Velocities in the right iliac vein proximal to the transplant measures 95 cm second and distal to the transplant measure 50 cm/s. The main renal vein is patent. No perirenal fluid collection is seen. The bladder is decompressed and grossly unremarkable. The nulato kidneys are markedly atrophic and not well-visualized. IMPRESSION: 1. The right pelvic renal transplant demonstrates mild cortical atrophy and is without hydronephrosis. 2. Elevated intrarenal resistive indices can be seen in the setting of medical renal disease. Follow-up of with the patient's hog ringer is recommended. 3. Normal velocities are shown in the transplanted renal artery. Medications Administered ER Medications Given: Normal saline 1L bolus (discontinued about 250ml through) ECG Rate (beats per minute): 75 Rhythm: normal sinus Findings: no acute ischemic change Comparison ECG Date: from (October 13, 2022) Change: the following changes noted (ST no longer elevated in inferior leads, TWI now evident in inferior leads) Code Status & VTE Plan Code Status Full VTE Prophylaxis Plan VTE Prophylaxis will be ordered: No PG Care Time/CCT Total # of Minutes Spent Total Time Spent with Patient: Total time spent is greater than 50% in coordination of care (as documented) at patient's floor/unit and/or counseling patient: Coding Level of Care Code 09604 INT INP/OBS CARE 3/75MIN Diagnoses Acute kidney injury N17.9 Acidosis E87.20 Hypomagnesemia E83.42 Kidney transplant recipient Z94.0 Hypertension I10 CKD (chronic kidney disease) N18.9
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
[2025-05-19] MEDS: TACROLIMUS 1 MG CAP PO SCH (21:09)
[2025-05-19] MEDS: MAGNESIUM SULFATE / D5W 1 GM/100 ML BAG IV ONE (22:09)
[2025-05-19] MEDS: NORTRIPTYLINE HCL 10 MG CAP PO SCH (22:55)
[2025-05-20] MEDS: CHOLECALCIFEROL 25 MCG (1000 UNITS) TAB PO SCH (07:50)
[2025-05-20] MEDS: SPIRONOLACTONE 25 MG TAB PO SCH (07:51)
[2025-05-20 08:08] VITALS: RESP 18
[2025-05-20 08:44] LABS: Hematocrit (blood only) 31.3 % (37.0-47.0); Hemoglobin 11.3 g/dl (12.0-16.0); Mean Corpuscular Hemoglobin 31.8 pg (25.0-34.0); Mean Corpuscular Volume 88.2 fL (80.0-100.0); Platelet Count 168 K/uL (130-400); RDW Standard Deviation 42.6 fL (36.4-46.3); Red Blood Count 3.55 M/uL (4.20-5.40); White Blood Count 5.22 K/ul (4.8-10.8)
[2025-05-20 09:04] LABS: Anion Gap 8.0 (3-11); Blood Urea Nitrogen 28.0 mg/dl (6-23); Calcium 8.8 mg/dl (8.6-10.3); Carbon Dioxide 27.0 mmol/L (21-32); Chloride 104.0 mmol/L (98-107); Creatinine Clr Calc Pharmacy 16.2 ml/min; Glucose 96.0 mg/dl (70-99(Fasting)); Potassium 4.1 mmol/L (3.5-5.1); Sodium 139.0 mmol/L (136-145)
[2025-05-20] MEDS: MAGNESIUM SULFATE / D5W 1 GM/100 ML BAG IV SCH (10:40)
--- NOTE | 2025-05-20 11:07 | Nephrology Progress Note ---
Date of Service May 20, 2025 Assessment & Plan (1) Acute kidney injury: Plan: * Creatinine slightly improved with IV hydration * Urine microscopy acellular * Transplant renal US negative for obstruction * Tacrolimus trough level pending. 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 - this was discussed with Pamela in detail; she expressed understanding * Repeat metabolic profile ordered for this afternoon, if kidney function continues to improve outpatient follow up would be acceptable (2) CKD (chronic kidney disease): Plan: * Advanced nature of her kidney dysfunction was discussed in detail * Explained that NEUROLOGY PHYSICIAN ASSISTANT may become necessary in the very near future * Importance of arranging vascular access placement and close follow up with her labeling associate for advanced care planning and preparation for dialysis was discussed (3) Kidney transplant recipient: Plan: * Dr. Espino spoke w/ Dr. Montesinos transplant surgeon at [facility] 05/17/25. Unfortunately patient did not keep appointment for transplant evaluation in [place]. Further evaluation has been cancelled. It was recommended by transplant team that HD be started when necessary. Transplant team will reassess patient if she demonstrates 6-12 months compliance with medications and treatments at dialysis unit. Patient was also notified directly by Dr. Montesinos. (4) Hypertension: Plan: * Continue current outpatient regimen of carvedilol, spironolactone and low dose amlodipine (5) Anemia: Plan: * Hgb currently acceptable. No acute indication for YONG therapy Admission and Anticipated Discharge Date Admission Date: May 19, 2025 Subjective No acute events overnight. Pamela feels well this AM. She denies fluid retention or edema. Appetite is good. She is breathing comfortably. She endorses no urinary complaints. She would like to be discharged home today. Review of Systems Review of Systems: All systems reviewed & are unremarkable except as noted in HPI & below Physical Exam Constitutional: well developed; no acute distress Eyes: no scleral abnormality and no corneal abnormality ENMT: Mouth: no oral mucosal abnormality and oral mucous membranes not dry Neck: normal visual inspection and trachea midline Respiratory: normal respiratory effort Auscultation: lungs clear to auscultation bilaterally Cardiovascular: Rate/Rhythm: regular rate Heart Sounds: normal S1 and normal S2 Extremities: no edema Gastrointestinal (Abdomen): RLQ kidney transplant. Musculoskeletal: Extremities: no cyanosis and no clubbing Skin: normal turgor; no lesions Neurologic: Motor/Sensory: no tremor and no asterixis Psychiatric: Orientation: alert and oriented x 3 Results & Data Vital Signs (Past 12 Hours) Vital Signs Temp Pulse Pulse Resp BP Pulse Ox O2 Del Method 05/20/25 08:07 36.7 C 81 18 142/97 H 96 Room Air 05/20/25 07:19 70 05/20/25 04:26 36.7 C 74 20 139/95 98 Room Air 05/20/25 00:29 36.8 C 70 20 133/91 98 Room Air 05/19/25 23:02 82 Laboratory Results Laboratory Results - last 24 hr 05/19/25 05/19/25 05/20/25 12:35 13:54 08:26 WBC 5.18 5.22 RBC 4.02 L 3.55 L Hgb 12.7 11.3 L Hct 35.7 L 31.3 L MCV 88.8 88.2 MCH 31.6 31.8 MCHC 35.6 36.1 H RDW Std Deviation 43.8 42.6 RDW Coeff of Shukri 13.4 13.1 Plt Count 200 168 MPV 10.5 10.2 Immature Gran % (Auto) 0.2 Neut % (Auto) 65.2 Lymph % (Auto) 17.6 Anson % (Auto) 6.8 Eos % (Auto) 9.8 Baso % (Auto) 0.4 Neut # (Auto) 3.38 Lymph # (Auto) 0.91 L Anson # (Auto) 0.35 Eos # (Auto) 0.51 H Baso # (Auto) 0.02 Immature Gran # (Auto) 0.01 Sodium 135 L 139 Potassium 4.9 4.1 Chloride 108 H 104 Carbon Dioxide 18 L 27 Anion Gap 9 8 BUN 28 H 28 H Creatinine 5.07 H* 4.59 H* D Est Cr Clr Drug Dosing 14.5 16.2 eGFR 10.16 11.44 BUN/Creatinine Ratio 5.5 L 6.1 L Glucose 122 H 96 Calcium 9.4 8.8 Magnesium 1.6 L 1.7 Total Bilirubin 0.9 AST 14 ALT 10 Alkaline Phosphatase 75 Total Protein 7.5 Albumin 4.1 Globulin 3.4 Albumin/Globulin Ratio 1.2 Lipase 61 Urine Color Yellow Urine Appearance Clear Urine pH 5.5 Ur Specific Doyle 1.006 Urine Protein 3+ H Urine Glucose (UA) Negative Urine Ketones Negative Urine Blood Trace H Urine Nitrite Negative Urine Bilirubin Negative Urine Urobilinogen Negative Ur Leukocyte Esterase Negative Urine WBC (Auto) 0-5 Urine RBC (Auto) 0-2 U Hyaline Cast (Auto) 0-2 U Epithel Cells (Auto) 0-2 Urine Bacteria (Auto) None Seen Ur Random Creatinine 53.0 U Random Total Protein 169.4 H Protein/Creatinin Ratio 3.2 H Urine Comment Tacrolimus Pending PG Care Time/CCT Total # of Minutes Spent Total Time Spent with Patient: Total time spent is greater than 50% in coordination of care (as documented) at patient's floor/unit and/or counseling patient: Coding Level of Care Code 01872 SUB INP/OBS CARE 3/50MIN Diagnoses Acute kidney injury N17.9 CKD (chronic kidney disease) N18.9 Kidney transplant recipient Z94.0 Hypertension I10 Anemia D64.9
[2025-05-20 11:19] VITALS: BP 151/105; PULSE 84; TEMP 97.5; O2SAT 97
[2025-05-20 13:36] LABS: Anion Gap 7.0 (3-11); Blood Urea Nitrogen 28.0 mg/dl (6-23); Calcium 9.0 mg/dl (8.6-10.3); Carbon Dioxide 30.0 mmol/L (21-32); Chloride 99.0 mmol/L (98-107); Creatinine Clr Calc Pharmacy 16.7 ml/min; Glucose 92.0 mg/dl (70-99(Fasting)); Potassium 4.4 mmol/L (3.5-5.1); Sodium 136.0 mmol/L (136-145)
--- NOTE | 2025-05-20 14:26 | Discharge Summary ---
Discharge Summary Date of Service May 20, 2025 Principal Dx & Hospital Course #1 = Principal Diagnosis (1) Acute kidney injury: FADUMO is NOT present during this hospitalization @ [facility]. cf., admission creatinine 5.07 mg/dL (05/19/2025, 12:35pm). cf., post-hydration creatinine 4.59 mg/dL (, 8:26am). cf., discharge creatinine 4.46 mg/dL (05/20/2025, 1:07pm). cf., progressively worsening CKD with creatinine increasing from 1.30 mg/dLL (09/23/2017, 8:31am) to 3.37 mg/dL (12/05/2024, 6:51pm), s/p renal transplant ~20 years ago @ [facility], now on tacrolimus 1mg PO bid. From the above data, I surmise that patient is suffering from an inexorable, progressive decline in renal function--and NOT FADUMO (as patient had NO symptoms referrable to FADUMO prior to coming to [facility] ER on 05/19/2025, and patient still has NO symptoms referrable to FADUMO on leaving [facility] Med-Surg bed #N282-2 on 05/20/2025), that has been transiently delayed by the administration of 1 liter of 0.9% NS @ 999 mL/hr (05/19/2025, 12:43pm), followed by 2 liters of sodium bicarbonate (150meq in sterile water) @ 100 mL/hr (05/19/2025, 2:14pm; 05/20/2025, 1:49am). Hence, patient was subsequently discharged back to her home on 05/20/2025, and advised to follow up with her Renal DrLeihg Espino within 5-7 days of hospital discharge, regarding: a. Repeat creatinine level testing within 5-7 days of hospital discharge. b. Discussion of tacrolimus levels (drawn on 05/17/2025, 8:36am and again on 05/20/2025, 8:26am), and which are still pending as of discharge date/time, 05/20/2025, 2:50pm), while continuing home-scheduled tacrolimus 1mg PO bid on hospital discharge date/time, 05/20/2025, 2:50pm. Patient reports that she will comply with the recommendations above. (2) Acidosis: RESOLVED. cf., admission CO2 18, anion gap 9 (05/19/2025, 12:35pm). cf., post-hydration CO2 27, anion gap 8 (05/20/2025, 8:26am). cf., discharge CO2 30, anion gap 7 (05/20/2025, 1:07pm). cf., historical CO2 23, anion gap 7 (12/05/2024, 6:51pm). Patient received 1 liter of 0.9% NS @ 999 mL/hr (05/19/2025, 12:43pm), followed by 2 liters of sodium bicarbonate (150meq in sterile water) @ 100 mL/hr (05/19/2025, 2:14pm; 05/20/2025, 1:49am) while in [facility]. Patient will not continue with IV fluid or sodium bicarbonate infusion on hospital discharge home on 05/20/2025, 2:50pm. (3) Hypomagnesemia: cf., admission Mg 1.6 mg/dL (05/19/2025, 12:35pm). cf., discharge Mg 1.7 mg/dL (05/20/2025, 8:26am). cf., historical Mg 1.6 mg/dL (05/17/2025, 8:36am). Patient received magnesium sulfate 1g IV x 1 dose (05/19/2025, 10:09pm), followed by magnesium sulfate 1g IV x 2 doses (05/20/2025, 10:40am, 12:32pm) while in [facility]. Patient did not wait to receive a third dose of magnesium sulfate 1g IV x 1 dose or undergo repeat Mg level testing while in [facility] as patient insisted on going home ALEXANDRE as patient stated, "I felt perfectly fine before I came to this hospital. I only came here because my doctor told me to come here. Nothing is wrong with me. I am going home now." Hence, I complied with patient's wish to be discharged ALEXANDRE on 05/20/2025. (4) Kidney transplant recipient: s/p kidney transplant ~20 years ago @ [facility], now on tacrolimus 1mg PO bid. Patient underwent formal Renal Service evaluation with Dr. Joe Dent (05/20/2025, 11:00am), and who advised that patient decrease her tacrolimus dose down from 1mg PO bid to 0.5mg PO bid if her tacrolimus level is elevated. To this end, patient reported that she is going home now on 05/20/2025, and will discuss with her own Renal DrLeigh Espino her tacrolimus levels (drawn on 05/17/2025, 8:36am and again on 05/20/2025, 8:26am), and which are still pending as of discharge date/time, 05/20/2025, 2:50pm), while continuing home-scheduled tacrolimus 1mg PO bid on hospital discharge date/time, 05/20/2025, 2:50pm. (5) Hypertension: Poorly controlled malignant HTN with end-organ (e.g., kidney) failure and admission BP 152/108, HR 150 bpm (05/19/2025, 12:18pm). Poorly controlled malignant HTN with end-organ (e.g., kidney) failure and discharge BP 151/105, HR 84 bpm (05/20/2025, 2:26pm). cf., poorly controlled malignant HTN with end-organ (e.g., kidney) failure with historical BP 154/118 (12/05/2024, 9:59pm). Patient received her home-scheduled amlodipine 2.5mg PO qam, carvedilol 25mg PO bid, and spironolactone 50mg PO daily while in [facility]. Patient will continue this same regimen on hospital discharge home on 05/20/2025, 2:50pm. Of note, I surmise that: (a) patient's chronically poorly controlled malignant HTN (b) chronic dietary indiscretion given her overweight body habitus with BMI 26.7 (height 167.6 cm, weight 74.9 kg) (c) chronic medication non-compliance (d) chronic missed appointments with the Renal Transplant Surgeon Dr. David Felix @ [facility] have all contributed to patient's progressively worsening CKD with creatinine increasing from 1.30 mg/dLL (09/23/2017, 8:31am) to 3.37 mg/dL (12/05/2024, 6:51pm), s/p renal transplant ~20 years ago @ [facility], now on tacrolimus 1mg PO bid. Hence, I cannot help this patient while in [facility] as patient refuses to remain in [facility] on 05/20/2025. Patient was subsequently discharged back to her home on 05/20/2025, 2:50pm. Patient was subsequently advised to follow up with her Renal Dr. Sai Espino within 5-7 days of hospital discharge, regarding: a. Repeat creatinine level testing within 5-7 days of hospital discharge. b. Discussion of tacrolimus levels (drawn on 05/17/2025, 8:36am and again on 05/20/2025, 8:26am), and which are still pending as of discharge date/time, 05/20/2025, 2:50pm), while continuing home-scheduled tacrolimus 1mg PO bid on hospital discharge date/time, 05/20/2025, 2:50pm. Patient reports that she will comply with the recommendations above. (6) CKD (chronic kidney disease): FADUMO is NOT present during this hospitalization @ [facility]. cf., admission creatinine 5.07 mg/dL (05/19/2025, 12:35pm). cf., post-hydration creatinine 4.59 mg/dL (, 8:26am). cf., discharge creatinine 4.46 mg/dL (05/20/2025, 1:07pm). cf., progressively worsening CKD with creatinine increasing from 1.30 mg/dLL (09/23/2017, 8:31am) to 3.37 mg/dL (12/05/2024, 6:51pm), s/p renal transplant ~20 years ago @ [facility], now on tacrolimus 1mg PO bid. From the above data, I surmise that patient is suffering from an inexorable, progressive decline in renal function--and NOT FADUMO (as patient had NO symptoms referrable to FADUMO prior to coming to [facility] ER on 05/19/2025, and patient still has NO symptoms referrable to FADUMO on leaving [facility] Med-Surg bed #N282-2 on 05/20/2025), that has been transiently delayed by the administration of 1 liter of 0.9% NS @ 999 mL/hr (05/19/2025, 12:43pm), followed by 2 liters of sodium bicarbonate (150meq in sterile water) @ 100 mL/hr (05/19/2025, 2:14pm; 05/20/2025, 1:49am). Hence, patient was subsequently discharged back to her home on 05/20/2025, and advised to follow up with her Renal DrLeigh Espino within 5-7 days of hospital discharge, regarding: a. Repeat creatinine level testing within 5-7 days of hospital discharge. b. Discussion of tacrolimus levels (drawn on 05/17/2025, 8:36am and again on 05/20/2025, 8:26am), and which are still pending as of discharge date/time, 05/20/2025, 2:50pm), while continuing home-scheduled tacrolimus 1mg PO bid on hospital discharge date/time, 05/20/2025, 2:50pm. Patient reports that she will comply with the recommendations above. Plan 44 years old female with PMH of FULL CODE @ home, overweight with BMI 26.7 (height 167.6 cm; weight 74.9 kg), major depression on nortriptyline 10mg PO q12, HTN on amlodipine 2.5mg PO qam, carvedilol 25mg PO bid, and spironolactone 50mg PO daily, and progressively worsening CKD with creatinine increasing from 1.30 mg/dLL (09/23/2017, 8:31am) to 3.37 mg/dL (12/05/2024, 6:51pm), s/p renal transplant ~20 years ago @ [facility], now on tacrolimus 1mg PO bid, and chronic vitamin D deficiency with prior vitamin 25- OOH vitamin D level of 22.1 ng/mL (05/17/2025, 8:36am), who presented to [facility] ER on 05/19/2025 on advice from her Renal DrLeigh Espino. Patient was subsequently admitted to the inpatient hospitalist service @ [facility] on 05/19/2025 with the following diagnoses: 1. Presumed FADUMO with admission creatinine 5.07 mg/dL, GFR 10.16 mL/min ( 025, 12:35pm) and normal anion gap metabolic acidosis with anion gap 8, CO2 18 mmol/L (05/19/2025, 12:35pm). 2. Acute hypomagnesemia with admission Mg 1.6 mg/dL (05/19/2025, 12:35pm). Initial Plan in [facility] ER included: #FADUMO / non anion gap metabolic acidosis / CKD stage 4 / renal transplant recipient Historically improves with IV fluids but generally eGFR trending down for months / years UA + protein/Cr ratio Sodium bicarb 150 meq IV @ 100 ml/hr Repeat BMP in AM Hold Bactrim pending nephrology review although since she only takes this for prophylaxis x3/week Continue tacrolimus pending level on 05/17/2025 Consult nephrology - discussed with Dr Espino on admission #Hypertension Continue carvedilol, amlodipine and spironolactone (monitor closely for hyperkalemia) #Hypomagnesemia Mg level 1.6, Mg sulfate 1g IV, repeat level with AM labs #Vitamin D deficiency Noted on recent labs, start 1000 IU daily VTE Prophylaxis - SCDs, low risk Disposition - admit to med/tele Admission HPI Per Admitting Provider Mary Will is a 44 year old female who presents to the ER on advice by her oral and maxillofacial surgery due to worsening Cr. She has a renal transplant from 20 years ago maintained on tacrolimus but her Cr has slowly been getting worse over the years with repeated FADUMO episodes which tend to improve with intravenous fluids. She reports otherwise feeling well, drinks a lot of water to keep up with fluids. No acute concerns at this time. Discharge Exam Constitutional General: Comfortable, coherent, and cooperative. Not confused or obtunded, but lethargic. Patient speaks very slowly, but in complete, fluent, and articulate 3-5 word sentences without pause, interruption, cough, or wheeze with O2 sat 97% on room air (05/20/2025, 2:26pm). HEENT: Normocephalic, atraumatic. No nystagmus, gaze paresis, anisocoria, miosis, mydriasis, hyphema, scleral injection, conjunctivitis, or pterygium. No otorrhea or rhinorrhea. No pharyngeal erythema, edema, or discharge. Neck: Supple, no stridor, bruit, goiter, or hepato-jugular reflux. Jugular venous pressure is estimated to be 3 cm above the sternal angle of Federico, which in turn, is 5 cm above the level of the right atrium; with jugular venous pressure estimated to be 8 cm, then, there is no jugular venous distention on 05/20/2025. Lymphatics: No cervical (anterior/posterior), supraclavicular, infraclavicular, axillary, epitrochlear, or inguinal adenopathy. Chest: Symmetric rise and fall with respirations. Non-tender to palpation. Lungs: Coarse breath sounds bilaterally. No audible expiratory wheeze, egophony, pectoriloquy, increase in tactile fremitus, or flatness/dullness to percussion at the bases. Heart: Regular rate and rhythm. S1 and S2 noted. No S3 or S4 summation gallop. No tripartite friction rub. Grade II/ early systolic murmur @ LLSB without radiation to the carotids, axilla, or back, and which remains invariant in regards to the respiratory cycle. Abdomen: Soft, non-tender, non-distended. No rebound, guarding, Vinson's sign, or organomegaly. Bowel sounds auscultated in all 4 quadrants. Extremities: No clubbing, cyanosis, or edema. Skin: No decubitus ulcer, exanthem, or enanthem. Urology: No duncan catheter. No urethral discharge. Psychiatry: No suicidal ideation. No anxiety. No insomnia. Smiles appropriately. Discharge Plan Discharge Items Patient Disposition: Home - Self-Care Reason For Visit: FADUMO Discharge Diagnosis: 1. NOT FADUMO. 2. CKD stage V, NOT on hemodialysis. 3. Acute hypomagnesemia with admission Mg 1.6 mg/dL (05/19/2025, 12:35pm), RESOLVED with post-supplement Mg 1.7 mg/dL (05/20/2025, 8:26am). Condition on Discharge: Fair Activity: Resume your previous activity Lifting: Gradually increase as tolerated Bathing: No limitations Sexual Activity: When tolerated Exercise/Sports: Gradually increase as tolerated Driving/Machine Use: No limitations Weightbearing: Full weightbearing Non-emergency contact: Primary Care Provider Call non-emergency contact if: you have any medication questions Follow-up/Referrals: Sai Espino MD [Primary Care Provider] - Diet: Heart Healthy Addtl Attending Provider Instructions: 1. See your Renal DrLeigh Espino within 5-7 days of hospital discharge, for: a. Repeat creatinine level testing within 5-7 days of hospital discharge. b. Discussion of tacrolimus levels (drawn on 05/17/2025, 8:36am and again on 05/20/2025, 8:26am), and which are still pending as of discharge date/time, 05/20/2025, 2:50pm), while continuing home-scheduled tacrolimus 1mg PO bid on hospital discharge date/time, 05/20/2025, 2:50pm. Pending Studies at Discharge: Yes Studies:: a. Repeat creatinine level testing within 5-7 days of hospital discharge. b. Discussion of tacrolimus levels (drawn on 05/17/2025, 8:36am and again on 05/20/2025, 8:26am), and which are still pending as of discharge date/time, 05/20/2025, 2:50pm) while continuing home-scheduled tacrolimus 1mg PO bid on hospital discharge date/time, 05/20/2025, 2:50pm. Stand-Alone Forms: [facility], Smoking Cessation Medications and DC Order Prescriptions: New cholecalciferol (vitamin D3) 25 mcg (1,000 unit) Capsule 25 mcg PO QAM Qty: 30 0RF Continued carvedilol 25 mg tablet 25 mg PO BID Qty: 180 3RF spironolactone 25 mg tablet 50 mg PO DAILY Qty: 60 5RF nortriptyline 10 mg capsule 10 mg PO Q12H Qty: 60 3RF tacrolimus 1 mg capsule 1 mg PO Q12H amlodipine 2.5 mg tablet 2.5 mg PO QAM Discontinued Venofer 100 mg iron/5 mL solution 100 mg IV DAILY Rx Instructions: Infuse over 30 mins. One infusion every two weeks. sulfamethoxazole-trimethoprim 400-80 mg tablet 1 tab PO [id number] Patient Comments: Mon/Wed/Fri Discharge Orders: Discharge Order (Routine); Ordered 05/20/25 Ordered By: Rodrigue Vasquez Admission Data Admit Date/Time: 05/19/25 15:06 Attending Provider: Rodrigue Vasquez Admit Provider: Mahad Mckee Primary Care Provider: Sai Espino Other Providers: Mahad Mckee; Sai Espino Hospital Stay Data Consultations 05/19/25 12:48 ED Decision to Admit Stat 05/19/25 17:03 Consult Nephrology Routine Diagnostic Imagining Performed 05/19/25 12:55 renal transplant w dop Stat Pending Results Patient Have Any Pending Studies at Discharge: Yes Discharge Instructions Given to Patient (Per Discharging Provider) 1. See your Renal DrLeigh Espino within 5-7 days of hospital discharge, for: a. Repeat creatinine level testing within 5-7 days of hospital discharge. b. Discussion of tacrolimus levels (drawn on 05/17/2025, 8:36am and again on 05/20/2025, 8:26am), and which are still pending as of discharge date/time, 05/20/2025, 2:50pm), while continuing home-scheduled tacrolimus 1mg PO bid on hospital discharge date/time, 05/20/2025, 2:50pm. Total Time Total Time Spent Total Time Spent (In Minutes): 35 minutes. Of this time period, 19 minutes were spent in coordinating patient's discharge. Coding Level of Care Code 13484 INP/OBS DISCH >30 MIN Diagnoses Acute kidney injury N17.9 Acidosis E87.20 Hypomagnesemia E83.42 Kidney transplant recipient Z94.0 Hypertension I10 CKD (chronic kidney disease) N18.9
--- NOTE | 2025-05-22 09:25 | Electrocardiogram Report ---
Test Reason : Blood Pressure : */* mmHG Vent. Rate : 75 BPM Atrial Rate : 75 BPM P-R Int : 184 ms QRS Dur : 78 ms QT Int : 384 ms P-R-T Axes : -13 -2 -6 degrees QTcB Int : 428 ms Normal sinus rhythm Low voltage QRS Inferior infarct (cited on or before 06-Apr-2022) Lateral [place] new compared with Apr 06 2022 When compared with ECG of 13-Oct-2022 18:36, Premature ventricular complexes are no longer Present Questionable change in initial forces of Inferior leads ST no longer elevated in Inferior leads T wave inversion now evident in Inferior leads Lateral Q waves are new Confirmed by Clementina Garnica ([id number]) on 05/22/2025 9:25:43 AM Referred By: Confirmed By: Clementina Garnica
== END 2025-05-20 14:50 | disposition home or self-care (01) | DRG 683 ==
LOC: ED 12:17 → 2N 15:06 → SUATTDRO 15:06 → 2N 16:41